=== PATIENT | female | born 1985 | race Caucasian/White ===

== ENCOUNTER 2016-11-16 04:01 | Emergency (ER) | payer MEDICAID ==
[2016-11-16] MEDS ORDERED: AZITHROMYCIN 250 MG TABLET PO STA (04:23)
[2016-11-16] MEDS ORDERED: AZITHROMYCIN 250 MG TABLET PO ONE (04:31)
== END 2016-11-16 04:41 | disposition home or self-care (01) ==
DX: H66.90 Otitis media, unspecified, unspecified ear (principal); Z87.891 Personal history of nicotine dependence
CPT/HCPCS: 99283; A9270

== ENCOUNTER 2017-10-04 15:13 | Emergency (ER) | payer MEDICAID ==
[2017-10-04 16:38] LABS: BASOPHILS # (AUTO) 0.1 10^3/uL (0.0-0.1); BASOPHILS % (AUTO) 0.8 %; EOSINOPHILS # (AUTO) 0.1 10^3/uL (0.0-0.7); HGB - HEMOGLOBIN 14.6 g/dL (12.0-16.0); LYMPHOCYTES # (AUTO) 3.8 10^3/uL (1.5-3.5); LYMPHOCYTES % (AUTO) 43.7 %; MEAN CORPUSCULAR HEMOGLOBIN 29.3 pg (27.0-31.0); MEAN CORPUSCULAR HGB CONC 33.5 g/dL (32.0-36.0); MEAN CORPUSCULAR VOLUME 87.3 fL (81.0-99.0); MEAN PLATELET VOLUME 8.1 fL (7.9-10.8); MONOCYTES # (AUTO) 0.7 10^3/uL (0.0-1.0); MONOCYTES % (AUTO) 7.8 %; NEUTROPHILS # (AUTO) 4.1 10^3/uL (1.5-6.6); NEUTROPHILS % (AUTO) 46.7 %; PLT - PLATELET COUNT 236 10^3/uL (130-450); RED BLOOD COUNT 4.98 10^6/uL (4.20-5.40); RED CELL DISTRIBUTION WIDTH 13.1 % (12.0-15.0); WHITE BLOOD COUNT 8.7 x10^3/uL (4.8-10.8)
[2017-10-04 16:49] LABS: ALBUMIN 4.5 g/dL (3.2-5.5); ALBUMIN/GLOBULIN RATIO 1.3 (1.0-2.2); BILIRUBIN,TOTAL 0.8 mg/dL (0.2-1.0); CALCIUM 9.2 mg/dL (8.5-10.3); CREATININE 0.6 mg/dL (0.4-1.0); TOTAL PROTEIN 7.9 g/dL (6.7-8.2)
[2017-10-04 17:50] LABS: BILIRUBIN,URINE NEGATIVE (NEGATIVE); GLUCOSE, URINE (UA) NEGATIVE (NEGATIVE); KETONES,URINE (UA) NEGATIVE (NEGATIVE); LEUKOCYTE ESTERASE, URINE NEGATIVE (NEGATIVE); NITRITE,URINE NEGATIVE (NEGATIVE); OCCULT BLOOD,URINE LARGE (NEGATIVE); PROTEIN,URINE NEGATIVE (NEGATIVE); UROBILINOGEN,URINE 0.2 (NORMAL) E.U./dL (NORMAL)
[2017-10-04 17:54] LABS: CLARITY,URINE HAZY (CLEAR)
[2017-10-04 18:06] LABS: BACTERIA,URINE Few /HPF (None Seen); SQUAMOUS EPITHELIAL CELL,UR FEW Squamous (<= Few)
[2017-10-04 18:21] VITALS: BP 126/76
== END 2017-10-04 18:18 | disposition left against medical advice (07) ==
LOC: ED 15:13
DX: Z53.21 Procedure and treatment not carried out due to patient leaving prior to being seen by health care provider (principal)
CPT/HCPCS: 36415; 80053; 81001; 81003; 83690; 85025; 87086; 99281

== ENCOUNTER 2017-10-29 09:15 | Emergency (ER) | payer MEDICAID ==
[2017-10-29] MEDS ORDERED: SODIUM CHLORIDE 0.9% 1,000 ML IV ONE (09:44)
[2017-10-29] MEDS ORDERED: ONDANSETRON 4 MG/2 ML VIAL IVP STA (09:44)
--- NOTE | 2017-10-29 09:46 | ED Physician Documentation ---
History of Present Illness - Stated complaint Stated Complaint: N/V/D DIZZY - Chief complaint Chief Complaint: General - Additonal information Additional information: hx from pt 32 f denies preg - has a 3 m old - not breast feeding to ER with NVD and abd cramping started about midnight no bad food no travel no recent ab daughter had vomiting a few days ago so may have caught it from her hx factor V leiden s/p PE X 2 and a DVT but no longer on coumadin Review of Systems Constitutional: denies: Fever Cardiac: denies: Chest pain / pressure Respiratory: denies: Cough GI: reports: Abdominal Pain (crampy), Nausea, Vomiting, Diarrhea : denies: Now EGA Endocrine: denies: Easy bruising / bleeding Immunocompromised: denies: Immunocompromised PD PAST MEDICAL HISTORY - Past Medical History Cardiovascular: None Respiratory: Pneumonia Endocrine/Autoimmune: None GI: Hemorrhoids 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 : Chronic bladder infection HEENT: None Psych: Depression Musculoskeletal: None Derm: None - Past Surgical History Past Surgical History: Yes HEENT: Tonsil/Adenoidectomy - Present Medications Home Medications: Ambulatory Orders Medication Instructions Recorded Confirmed Aspirin Chewable [St Nuno 81 mg PO ONCE 09/14/10/29/17 Aspirin] Dicyclomine [Bentyl] 10 mg PO Q8H PRN #20 capsule 10/29/17 Ondansetron Odt [Zofran] 4 mg TL Q6H PRN #10 tablet 10/29/17 - Allergies Allergies/Adverse Reactions: Allergies Allergy/AdvReac Type Severity Reaction Status Date / Time Penicillins Allergy Hives Verified 10/29/17 09:33 - Social History Does the pt smoke?: No Smoking Status: Former smoker Does the pt drink ETOH?: Yes Does the pt have substance abuse?: No - Immunizations Immunizations are current?: Yes - POLST Patient has POLST: No PD ED PE NORMAL - Vitals Vital signs reviewed: Yes - Cardiac Cardiac: RRR - Respiratory Respiratory: No respiratory distress - Abdomen Abdomen: Other (soft, mild diffuse TTP lower > upper s peritoneal signs) - Derm Derm: Normal color Results - Vitals Vitals: Vital Signs - 24 hr 10/29/17 10/29/17 09:27 11:58 Temperature 36.4 C L Heart Rate 106 H 70 Respiratory 17 18 Rate Blood Pressure 124/85 H 121/72 O2 Saturation 97 97 Oxygen O2 Source Room air - Labs Labs: Laboratory Tests 10/29/17 10/29/17 09:30 09:30 WBC 13.0 H RBC 5.22 Hgb 15.4 Hct 46.7 MCV 89.5 MCH 29.5 MCHC 32.9 RDW 13.2 Plt Count 222 MPV 10.1 Neut # 11.4 H Lymph # 1.1 L [place] # 0.4 Eos # 0.1 Baso # 0.0 Absolute Nucleated RBC 0.01 Nucleated RBC % 0.1 Sodium 139 Potassium 4.0 Chloride 104 Carbon Dioxide 21 Anion Gap 14.0 H BUN 12 Creatinine 0.7 Estimated GFR (MDRD) 96 Glucose 118 H Calcium 9.5 Total Bilirubin 0.7 AST 25 ALT 28 Alkaline Phosphatase 81 Total Protein 8.2 Albumin 4.7 Globulin 3.5 Albumin/Globulin Ratio 1.3 Lipase 33 Departure - Departure Disposition: 01 Home, Self Care Clinical Impression: Gastroenteritis, Dehydration Condition: Good Instructions: ED Dehydration, ED Gastroenteritis Viral Follow-Up: Cici Reynaga PA-C [Primary Care Provider] - Prescriptions: Dicyclomine [Bentyl] 10 mg PO Q8H PRN #20 capsule PRN Reason: stomach cramps Ondansetron Odt [Zofran] 4 mg TL Q6H PRN #10 tablet PRN Reason: Nausea / Vomiting Comments: At this point it looks like you have a stomach virus. Rest and drink plenty of fluids. Take zofran for vomiting and bentyl for cramps. Some serious abdominal infections such as appendicitis, can initially look like a stomach virus - so if you feel like you are getting worse or the symptoms are changing, please come back to ER for us to recheck you Forms: Activity restrictions
[2017-10-29 10:12] LABS: ALBUMIN 4.7 g/dL (3.2-5.5); ALBUMIN/GLOBULIN RATIO 1.3 (1.0-2.2); BILIRUBIN,TOTAL 0.7 mg/dL (0.2-1.0); CALCIUM 9.5 mg/dL (8.5-10.3); CREATININE 0.7 mg/dL (0.4-1.0); TOTAL PROTEIN 8.2 g/dL (6.7-8.2)
[2017-10-29 10:23] LABS: BASOPHILS % (AUTO) 0.3 %; EOSINOPHILS # (AUTO) 0.1 10^3/uL (0.0-0.7); EOSINOPHILS % (AUTO) 0.9 %; HGB - HEMOGLOBIN 15.4 g/dL (12.0-16.0); LYMPHOCYTES # (AUTO) 1.1 10^3/uL (1.5-3.5); LYMPHOCYTES % (AUTO) 8.5 %; MEAN CORPUSCULAR HEMOGLOBIN 29.5 pg (27.0-31.0); MEAN CORPUSCULAR HGB CONC 32.9 g/dL (32.0-36.0); MEAN CORPUSCULAR VOLUME 89.5 fL (81.0-99.0); MEAN PLATELET VOLUME 10.1 fL (7.9-10.8); MONOCYTES # (AUTO) 0.4 10^3/uL (0.0-1.0); MONOCYTES % (AUTO) 2.8 %; NEUTROPHILS # (AUTO) 11.4 10^3/uL (1.5-6.6); NEUTROPHILS % (AUTO) 87.5 %; PLT - PLATELET COUNT 222 10^3/uL (130-450); RED BLOOD COUNT 5.22 10^6/uL (4.20-5.40); RED CELL DISTRIBUTION WIDTH 13.2 % (12.0-15.0)
[2017-10-29] MEDS ORDERED: ACETAMINOPHEN 325 MG TABLET PO STA (10:28)
[2017-10-29] MEDS ORDERED: DICYCLOMINE 10 MG CAPSULE PO STA (11:47)
[2017-10-29 12:00] VITALS: BP 121/72
== END 2017-10-29 12:20 | disposition home or self-care (01) ==
LOC: ED 09:15
DX: K52.9 Noninfective gastroenteritis and colitis, unspecified (principal); E86.0 Dehydration; Z87.891 Personal history of nicotine dependence
CPT/HCPCS: 36415; 80053; 83690; 85025; 96361; 96374; 99283; 99284; A9270

== ENCOUNTER 2018-04-21 23:03 | Emergency (ER) | payer SELFPAY ==
--- NOTE | 2018-04-22 01:36 | ED Physician Documentation ---
PD HPI CHEST PAIN - Stated complaint Stated Complaint: JADA KNEE PAIN,CHEST PAIN - Chief complaint Chief Complaint: General - History obtained from History obtained from: Patient - History of Present Illness Timing - onset: Enter time (10:00), Today Timing - onset during: Rest Timing - duration: Hours Timing - details: Abrupt onset, Constant Quality: Sharp, Pain Location: Left chest Radiation: Other (no radiation) Improved by: Nothing Worsened by: Inspiration Associated symptoms: No: Shortness of air, Diaphoresis, Cough Similar symptoms before: Diagnosis (feels similar to previous PE x2) Recently seen: Not recently seen Review of Systems Constitutional: reports: Reviewed and negative Cardiac: reports: Chest pain / pressure. 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 : Chronic bladder infection HEENT: None Psych: Depression Musculoskeletal: None Derm: None Other Past Medical History: PE - Past Surgical History Past Surgical History: Yes HEENT: Tonsil/Adenoidectomy - Present Medications Home Medications: Ambulatory Orders Medication Instructions Recorded Confirmed Aspirin Chewable [St Nuno 81 mg PO ONCE 09/14/10/29/17 Aspirin] Dicyclomine [Bentyl] 10 mg PO Q8H PRN #20 capsule 10/29/17 Ondansetron Odt [Zofran] 4 mg TL Q6H PRN #10 tablet 10/29/17 - Allergies Allergies/Adverse Reactions: Allergies Allergy/AdvReac Type Severity Reaction Status Date / Time Penicillins Allergy Hives Verified 10/29/17 09:33 - Social History Does the pt smoke?: No Smoking Status: Never smoker Does the pt drink ETOH?: Yes Does the pt have substance abuse?: No - Immunizations Immunizations are current?: Yes - POLST Patient has POLST: No PD ED PE NORMAL - Vitals Vital signs reviewed: Yes - General General: Alert and oriented X 3, No acute distress, Well developed/nourished - Cardiac Cardiac: RRR, No murmur - Respiratory Respiratory: No respiratory distress, Clear bilaterally - Extremities Extremities: No edema Results - Vitals Vitals: Oxygen O2 Source Room air - Labs Labs: Laboratory Tests 04/22/18 04/22/18 02:00 02:00 WBC 12.2 H RBC 4.85 Hgb 14.6 Hct 43.2 MCV 89.0 MCH 30.1 MCHC 33.8 RDW 13.3 Plt Count 230 MPV 8.6 Neut # (Auto) 6.4 Lymph # (Auto) 4.7 H [place] # (Auto) 0.8 Eos # (Auto) 0.2 Baso # (Auto) 0.1 Absolute Nucleated RBC 0.01 Nucleated RBC % 0.1 Sodium 136 Potassium 4.2 Chloride 102 Carbon Dioxide 28 Anion Gap 6.0 BUN 14 Creatinine 0.7 Estimated GFR (MDRD) 96 Glucose 95 Calcium 9.2 - Rads (name of study) CT chest (PE study) Radiology: Prelim report reviewed, See rad report PD MEDICAL DECISION MAKING - ED course Complexity details: reviewed results, re-evaluated patient, considered differential, d/w patient - Sepsis Event Vital Signs: Oxygen O2 Source Room air Departure - Departure Disposition: 01 Home, Self Care Clinical Impression: Chest pain Condition: Good Instructions: ED Chest Pain Atypical Unkn Cause Follow-Up: Cici Reynaga PA-C [Primary Care Provider] - Discharge Date/Time: 04/22/18 04:14
[2018-04-22 02:07] LABS: BASOPHILS # (AUTO) 0.1 10^3/uL (0.0-0.1); BASOPHILS % (AUTO) 0.9 %; EOSINOPHILS # (AUTO) 0.2 10^3/uL (0.0-0.7); EOSINOPHILS % (AUTO) 1.6 %; HGB - HEMOGLOBIN 14.6 g/dL (12.0-16.0); LYMPHOCYTES # (AUTO) 4.7 10^3/uL (1.5-3.5); LYMPHOCYTES % (AUTO) 38.4 %; MEAN CORPUSCULAR HEMOGLOBIN 30.1 pg (27.0-31.0); MEAN CORPUSCULAR HGB CONC 33.8 g/dL (32.0-36.0); MEAN PLATELET VOLUME 8.6 fL (7.9-10.8); MONOCYTES # (AUTO) 0.8 10^3/uL (0.0-1.0); MONOCYTES % (AUTO) 6.5 %; NEUTROPHILS # (AUTO) 6.4 10^3/uL (1.5-6.6); NEUTROPHILS % (AUTO) 52.6 %; PLT - PLATELET COUNT 230 10^3/uL (130-450); RED BLOOD COUNT 4.85 10^6/uL (4.20-5.40); RED CELL DISTRIBUTION WIDTH 13.3 % (12.0-15.0); WHITE BLOOD COUNT 12.2 x10^3/uL (4.8-10.8)
[2018-04-22] MEDS ORDERED: IOPAMIDOL-300 100 ML VIAL ONE (02:18)
[2018-04-22 02:23] LABS: CALCIUM 9.2 mg/dL (8.5-10.3); CREATININE 0.7 mg/dL (0.4-1.0)
[2018-04-22] MEDS: IOPAMIDOL-300 100 ML VIAL IVP ONE (03:04)
--- NOTE | 2018-04-22 03:37 | CT Report ---
Procedure Date: 04/22/2018 Accession Number: [id number] / [id number] Procedure: CT - Chest Angio (PE) CPT Code: FULL RESULT: EXAM: CT ANGIOGRAM CHEST EXAM DATE: 04/22/2018 03:05 AM. CLINICAL HISTORY: Left chest pain, history of pulmonary embolism x2. COMPARISON: None. TECHNIQUE: Routine helical imaging was performed through the chest in the pulmonary arterial phase. IV Contrast: Yes. Reconstructions: Coronal 3-D MIP reconstructions.Sagittal and coronal. In accordance with CT protocol optimization, one or more of the following dose reduction techniques were utilized for this exam: automated exposure control, adjustment of mA and/or KV based on patient size, or use of iterative reconstructive technique. FINDINGS: Pulmonary Arteries: Technically adequate for evaluation through the segmental arteries. No evidence for acute or chronic pulmonary emboli. Lungs/Pleura: No pneumonia, suspicious nodules, or edema. No effusions or pneumothorax. Mediastinum: No acute aortic syndrome. No cardiac enlargement. No adenopathy. Upper Abdomen: Unremarkable. Other: None. IMPRESSION: Normal pulmonary CT angiogram. No pulmonary emboli. RADIA
[2018-04-22 04:14] VITALS: BP 110/70
== END 2018-04-22 04:14 | disposition home or self-care (01) ==
LOC: ED 23:03
DX: R07.9 Chest pain, unspecified (principal); Z86.711 Personal history of pulmonary embolism
CPT/HCPCS: 36415; 71275; 80048; 85025; 99283; Q9967

== ENCOUNTER 2018-06-01 18:28 | Emergency (ER) | payer MEDICAID ==
[2018-06-01 18:36] VITALS: BP 113/78
== END 2018-06-01 19:10 | disposition left against medical advice (07) ==
LOC: ED 18:28
DX: Z53.21 Procedure and treatment not carried out due to patient leaving prior to being seen by health care provider (principal)

== ENCOUNTER 2019-02-13 14:17 | Emergency (ER) | payer MEDICAID ==
[2019-02-13] MEDS ORDERED: NAPROXEN 250 MG TABLET PO STA (14:38)
--- NOTE | 2019-02-13 14:41 | ED Physician Documentation ---
PD HPI LOWER EXT INJURY - Stated complaint Stated Complaint: SWELLING IN RIGHT LEG - Chief complaint Chief Complaint: General - History obtained from History obtained from: Patient - History of Present Illness PD HPI LOW EXT INJURY LOCATION: Right, Knee, Thigh, Calf Type of injury: Other (She is not aware of any abrupt injury. She did ride in a car up to [facility] so was a few hours. She had her leg tucked up underneath her during the ride. She did not notice any pain at that time. This was a week ago and is now having a couple of days of right calf and thigh area pain and a feeling of swelling in her lower leg. She does have history of DVT a few years ago when she was and is concerned about that. She states she does have a factor V Leiden deficiency as well.). No: Fall, Twist Where injury occurred: Other (riding in car a week ago) Timing - onset: How many weeks ago (1) Timing - details: Gradual onset (having pain in the calf and thigh for the past couple of days.), Still present Associated symptoms: Tingling (in right foot today). No: Weakness, Numbness Contributing factors: No: Anticoagulated Similar symptoms before: Diagnosis (she says symptoms are similar to when she started having DVT in the past.) Recently seen: Not recently seen Review of Systems Constitutional: denies: Fever, Chills, Myalgias Skin: denies: Rash, Lesions Musculoskeletal: reports: Extremity swelling (feeling of right lower leg swelling). 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 : Chronic bladder infection HEENT: None Psych: Depression Musculoskeletal: None Derm: None - Past Surgical History Past Surgical History: Yes HEENT: Tonsil/Adenoidectomy - Present Medications Home Medications: Ambulatory Orders Medication Instructions Recorded Confirmed No Known Home Medications 02/13/19 02/13/19 - Allergies Allergies/Adverse Reactions: Allergies Allergy/AdvReac Type Severity Reaction Status Date / Time Penicillins Allergy Hives Verified 02/13/19 14:24 - Social History Does the pt smoke?: No Smoking Status: Never smoker Does the pt drink ETOH?: Yes Does the pt have substance abuse?: No - Immunizations Immunizations are current?: Yes - POLST Patient has POLST: No PD ED PE NORMAL - Vitals Vital signs reviewed: Yes - General General: Alert and oriented X 3, No acute distress, Well developed/nourished - Cardiac Cardiac: RRR, No murmur - Respiratory Respiratory: Clear bilaterally - Abdomen Abdomen: Soft, Non tender - Derm Derm: Normal color, Warm and dry, No rash - Extremities Extremities: No edema, Other (some tenderness in upper calf and behind knee, lower thigh to palpation. No notable edema. Good color and cap refill in foot and toes. ) - Neuro Neuro: No motor deficit, No sensory deficit Results - Vitals Vitals: Oxygen O2 Source Room air - Rads (name of study) duplex right leg Radiology: Prelim report reviewed (no DVT), See rad report PD MEDICAL DECISION MAKING - ED course Complexity details: reviewed results, re-evaluated patient, considered differential, d/w patient Departure - Departure Disposition: 01 Home, Self Care Clinical Impression: Right leg pain Clinical Impression: (Ruled Out): DVT (deep venous thrombosis) Condition: Stable Record reviewed to determine appropriate education?: Yes Instructions: ED Strain Muscle Ext Comments: No DVT seen on ultrasound. Naproxen or ibuprofen twice daily. Elevate and rest of the leg presuming little bit of swelling from gravity. There may be some muscle strain component. Her to seem nasal improve over the next few days. Recheck if worsening pain or swelling over the next several days to week. If y ou are having worsening symptoms, the ultrasound can get repeated in a week. Discharge Date/Time: 02/13/19 16:36
--- NOTE | 2019-02-13 16:17 | Ultrasound Report ---
Reason: right calf/knee pain, h/o DVT few years ago Procedure Date: 02/13/2019 Accession Number: [id number] / [id number] Procedure: US - Duplex Ext Veins Right CPT Code: FULL RESULT: EXAM: RIGHT LOWER EXTREMITY VENOUS ULTRASOUND EXAM DATE: 02/13/2019 03:54 PM. CLINICAL HISTORY: Right calf/knee pain, h/o DVT few years ago. COMPARISON: None. TECHNIQUE: Real-time sonographic vascular imaging was performed by the hyperbaric technician through the lower extremity utilizing both color-flow and Doppler spectral analysis. Multiple manufacturer representative static images were saved for review. FINDINGS: Common Femoral Vein (CFV): Normal. CFV-GSV Junction: Normal. Profunda Femoral Vein (PFV): Normal. Femoral Vein (FV) Prox: Normal. Femoral Vein (FV) Mid: Normal. Femoral Vein (FV) Dist: Normal. Popliteal Vein: Normal. Posterior Tibial Veins: Normal. Peroneal Veins: Normal. Other: None. IMPRESSION: No evidence for deep venous thrombosis. RADIA
[2019-02-13 16:35] VITALS: BP 117/83
== END 2019-02-13 16:36 | disposition home or self-care (01) ==
LOC: ED 14:17
DX: M25.561 Pain in right knee (principal); M79.661 Pain in right lower leg; M79.651 Pain in right thigh; Z86.718 Personal history of other venous thrombosis and embolism; D68.51 Activated protein C resistance
CPT/HCPCS: 93971; 99282; 99283; A9270

== ENCOUNTER 2019-05-08 18:35 | Emergency (ER) | payer MEDICAID ==
--- NOTE | 2019-05-08 21:06 | ED Physician Documentation ---
PD HPI SKIN - Stated complaint Stated Complaint: SPOT ON FACE - Chief complaint Chief Complaint: Wound - History obtained from History obtained from: Patient - History of Present Illness Timing - onset: How many days ago (The patient states she had a small mole on the right side of her mandible for a long time but over the last several days to week it is been irritated and draining some fluid and some purulence. It is locally tender. She is not aware of an injury to it.) Timing - details: Gradual onset, Still present Location: Face (right mandible area) Quality / character: Painful, Swelling, Draining. 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 : Chronic bladder infection HEENT: None Psych: Depression Musculoskeletal: None Derm: None - Past Surgical History Past Surgical History: Yes HEENT: Tonsil/Adenoidectomy - Present Medications Home Medications: Ambulatory Orders Medication Instructions Recorded Confirmed RX: Doxycycline Hyclate 100 mg PO BID #14 capsule 05/08/19 RX: Mupirocin 1 applic TP TID #15 g 05/08/19 - Allergies Allergies/Adverse Reactions: Allergies Allergy/AdvReac Type Severity Reaction Status Date / Time Penicillins Allergy Hives Verified 05/08/19 18:58 - Social History Does the pt smoke?: No Smoking Status: Never smoker Does the pt drink ETOH?: Yes Does the pt have substance abuse?: No - Immunizations Immunizations are current?: Yes - POLST Patient has POLST: No PD ED PE NORMAL - Vitals Vital signs reviewed: Yes - General General: Alert and oriented X 3, No acute distress, Well developed/nourished - HEENT HEENT: Ears normal, Pharynx benign - Neck Neck: Supple, no meningeal sign, No adenopathy - Derm Derm: Normal color, Warm and dry, Other (The right lateral aspect of the mandible shows a localized area of mild redness and inflammation without any fluctuance or abscess subdermal induration. The skin itself shows mild ulcerative changes without any pigmentation. There is no adenopathy.) Results - Vitals Vitals: Vital Signs - 24 hr 05/08/19 05/08/19 18:56 21:37 Temperature 37 C 36.5 C Heart Rate 94 76 Respiratory 16 17 Rate Blood Pressure 125/81 H 140/98 H O2 Saturation 97 99 Oxygen O2 Source Room air PD MEDICAL DECISION MAKING - ED course Complexity details: considered differential (I think the area of her mole got infected and now has some local skin erosion and we will treated with topical and oral antibiotics. However I did discuss with her the concern for 6 again cancers related to the prior mole. I referred her to [facility] for reevaluation after the antibiotics and in their judgment if they think a skin biopsy or excisional biopsy is warranted.), d/w patient Departure - Departure Disposition: 01 Home, Self Care Clinical Impression: Infected skin lesion Condition: Stable Record reviewed to determine appropriate education?: Yes Instructions: ED Staph Infec Abx Tx Only Follow-Up: NISH CHENEY ARNP [Primary Care Provider] - [facility] [Provider Group] Prescriptions: RX: Doxycycline Hyclate 100 mg PO BID #14 capsule RX: Mupirocin 1 applic TP TID #15 g Comments: The small may have just developed a simple infection. Use mupirocin topical antibiotic 2-3 times a day and doxycycline oral antibiotic twice daily for a week. However I would suggest following up with dermatology for reevaluation after that timeframe to see how well it is healed and if there is concern for needing a biopsy. Discharge Date/Time: 05/08/19 21:39
[2019-05-08] MEDS ORDERED: DOXYCYCLINE 100 MG TABLET PO STA (21:24)
[2019-05-08] MEDS ORDERED: MUPIROCIN 2% OINT 1 GM TOP STA (21:24)
[2019-05-08 21:37] VITALS: BP 140/98
== END 2019-05-08 21:39 | disposition home or self-care (01) ==
LOC: ED 18:35
DX: L08.9 Local infection of the skin and subcutaneous tissue, unspecified (principal); D22.39 Melanocytic nevi of other parts of face; Z88.0 Allergy status to penicillin
CPT/HCPCS: 99283; A9270; 81025

== ENCOUNTER 2019-09-05 12:47 | Emergency (ER) | payer MEDICAID ==
[2019-09-05 12:55] VITALS: BP 148/93
--- NOTE | 2019-09-05 13:16 | ED Physician Documentation ---
PD HPI UPPER EXT INJURY - Stated complaint Stated Complaint: WRIST PX - Chief complaint Chief Complaint: Ext Problem - History obtained from History obtained from: Patient - History of Present Illness Location: Right, Wrist Type of injury: Fall, Twist Timing - onset: How many weeks ago (1-2) Timing - details: Still present Improved by: Nothing Worsened by: Moving Associated symptoms: Tingling. No: Swelling, Discolored Similar symptoms before: Has not had sx before Recently seen: Not recently seen - Additonal information Additional information: There is a 34-year-old presents with another adult and 2 children with complaints that somehow she injured her wrist she does not remember exactly but she thinks she was "playing around" with someone a week and to 2 weeks ago when she fell landing on her right wrist and it kind of twisted as she landed on it. 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 She is right-handed. She is felt like her hand is been tingly for about a week now. She tried taking Tylenol and ibuprofen but it did not do anything for the pain so she quit taking it. She did wear her bowling brace but it seemed to put pressure in the wrong place and it did not help at all. She does not currently employed. Review of Systems Skin: denies: Abrasion (s) Musculoskeletal: reports: Extremity pain, Joint pain. denies: Extremity swelling Neurologic: reports: Focal weakness (Cannot brush polisher because of pain). 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 : Chronic bladder infection HEENT: None Psych: Depression Musculoskeletal: None Derm: None - Past Surgical History Past Surgical History: Yes HEENT: Tonsil/Adenoidectomy - Present Medications Home Medications: Ambulatory Orders Medication Instructions Recorded Confirmed Doxycycline Hyclate 100 mg PO BID #14 capsule 05/08/19 Mupirocin 1 applic TP TID #15 g 05/08/19 - Allergies Allergies/Adverse Reactions: Allergies Allergy/AdvReac Type Severity Reaction Status Date / Time Penicillins Allergy Hives Verified 09/05/19 12:51 - Social History Does the pt smoke?: No Smoking Status: Never smoker Does the pt drink ETOH?: Yes Does the pt have substance abuse?: No - Immunizations Immunizations are current?: Yes - POLST Patient has POLST: No PD ED PE NORMAL - Vitals Vital signs reviewed: Yes - General General: Alert and oriented X 3, No acute distress, Well developed/nourished - HEENT HEENT: Atraumatic - Respiratory Respiratory: No respiratory distress - Derm Derm: Normal color, Warm and dry, Other (There are couple scattered abrasions on the dorsal aspect of the right hand and forearm.) - Extremities Extremities: Normal ROM s pain, No edema. No: No tenderness to palpate (Tender to palpate at the ulnar styloid of the right wrist. No snuffbox tenderness.) - Neuro Neuro: No motor deficit (5 out of 5 brush polisher strength and she is able to abduct the pinky and thumb.), No sensory deficit (Sensation is intact to light touch in all 5 digits.) - Psych Psych: Normal mood, Normal affect Results - Vitals Vitals: Vital Signs - 24 hr 09/05/19 12:51 Temperature 36.8 C Heart Rate 88 Respiratory 16 Rate Blood Pressure 148/93 H O2 Saturation 98 Oxygen O2 Source Room air - Rads (name of study) R wrist Radiology: EMP read contemporaneously (Negative fracture.) PD MEDICAL DECISION MAKING - ED course Complexity details: reviewed results, d/w patient ED course: Results the x-ray were discussed with the patient. She is placed in a cock-up Velcro splint. Ice for pain and follow-up with her primary care provider if the symptoms persist for another 4-6 weeks.
--- NOTE | 2019-09-05 13:32 | XRAY Report ---
Reason: pain Procedure Date: 09/05/2019 Accession Number: [id number] / [id number] Procedure: XR - Wrist 4 View RT CPT Code: Final Report FULL RESULT: EXAM: RIGHT WRIST RADIOGRAPHY EXAM DATE: 09/05/2019 01:05 PM. CLINICAL HISTORY: Worsening wrist pain. No known injury. COMPARISON: None. TECHNIQUE: 4 views. FINDINGS: Bones: No fracture or bone destructive process. Joints: No subluxation. Joint spaces are preserved. Soft Tissues: No periarticular calcification or significant findings identified. IMPRESSION: 1. Negative exam. No significant findings identified. RADIA
== END 2019-09-05 14:23 | disposition home or self-care (01) ==
LOC: ED 12:47
DX: S63.501A Unspecified sprain of right wrist, initial encounter (principal); S60.511A Abrasion of right hand, initial encounter; S50.811A Abrasion of right forearm, initial encounter; W19.XXXA Unspecified fall, initial encounter
CPT/HCPCS: 99283

== ENCOUNTER 2019-10-03 16:45 | Emergency (ER) | payer MEDICAID ==
--- NOTE | 2019-10-03 18:15 | ED Physician Documentation ---
PD HPI HEENT - Stated complaint Stated Complaint: TOOTH PX - Chief complaint Chief Complaint: Heent - History obtained from History obtained from: Patient - History of Present Illness Timing - onset: How many weeks ago (She has been having some pain in the right upper and lower teeth for several weeks it has increased considerably over the last several days. She noticed a little bad odor and taste from upper tooth suggesting some drainage. There is some mild swelling of the gum.) Timing - duration: Weeks Timing - details: Abrupt onset, Still present Location: Tooth (right upper) Associated symptoms: No: Fever, Congestion, Unable to swallow, Swollen nodes, Facial swelling Recently seen: Not recently seen Review of Systems Constitutional: denies: Fever, Chills, Myalgias Nose: denies: Rhinorrhea / runny nose, Congestion Throat: reports: Dental pain / toothache. 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 : Chronic bladder infection HEENT: None Psych: Depression Musculoskeletal: None Derm: None - Past Surgical History Past Surgical History: Yes HEENT: Tonsil/Adenoidectomy - Present Medications Home Medications: Ambulatory Orders Medication Instructions Recorded Confirmed Doxycycline Hyclate 100 mg PO BID #14 capsule 05/08/19 Mupirocin 1 applic TP TID #15 g 05/08/19 Chlorhexidine Gluconate [Peridex] 15 ml PO BID #118 ml 10/03/19 Clindamycin HCl [Clindamycin 300MG 300 mg PO TID #21 capsule 10/03/19 CAP] Naproxen 375 mg PO BID #20 tablet 10/03/19 Oxycodone HCl/Acetaminophen 1 each PO Q6H PRN #20 tablet 10/03/19 [Percocet 5-325 mg Tablet] - Allergies Allergies/Adverse Reactions: Allergies Allergy/AdvReac Type Severity Reaction Status Date / Time Penicillins Allergy Hives Verified 10/03/19 16:53 - Social History Does the pt smoke?: No Smoking Status: Never smoker Does the pt drink ETOH?: Yes Does the pt have substance abuse?: No - Immunizations Immunizations are current?: Yes - POLST Patient has POLST: No PD ED PE NORMAL - Vitals Vital signs reviewed: Yes - General General: Alert and oriented X 3, No acute distress, Well developed/nourished - HEENT HEENT: Ears normal, Pharynx benign, Other (There is gum redness on the upper and lower. There is tenderness to palpation and percussion of the upper premolar couple of teeth. There is no obvious fluctuance or abscess.). 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 No recent substance abuse.) - Neck Neck: Supple, no meningeal sign, Other (right anterior adenopathy) - Cardiac Cardiac: RRR, No murmur - Respiratory Respiratory: Clear bilaterally - Abdomen Abdomen: Soft, Non tender - Derm Derm: Normal color, No rash Results - Vitals Vitals: Vital Signs - 24 hr 10/03/19 18:59 Heart Rate 90 Respiratory 16 Rate Blood Pressure 140/90 H O2 Saturation 98 Oxygen O2 Source Room air PD MEDICAL DECISION MAKING - ED course Complexity details: considered differential, d/w patient Departure - Departure Disposition: Home, Self Care Clinical Impression: Pain, dental, Dental abscess Condition: Stable Record reviewed to determine appropriate education?: Yes Instructions: ED Abscess Dental Follow-Up: NISH CHENEY ARNP [Primary Care Provider] - Prescriptions: Chlorhexidine Gluconate [Peridex] 15 ml PO BID #118 ml Clindamycin HCl [Clindamycin 300MG CAP] 300 mg PO TID #21 capsule Naproxen 375 mg PO BID #20 tablet Oxycodone HCl/Acetaminophen [Percocet 5-325 mg Tablet] 1 each PO Q6H PRN #20 tablet PRN Reason: pain Comments: Rinse with the chlorhexidine oral antiseptic twice daily swish and spit. Use anti-inflammatories such as naproxen twice daily with food for the next 7 to 10 days. Add Tylenol or Percocet if needed for pain. Presume there is some infection exacerbating the pain at this point and take clindamycin as directed for a week. Follow-up with dental clinic at their earliest available appointment for more definitive care of the teeth that are bothering you. Recheck if not improving well over the next few days and return sooner if worsening. Discharge Date/Time: 10/03/19 18:59
[2019-10-03] MEDS ORDERED: CLINDAMYCIN 150 MG CAPSULE PO STA (18:37)
[2019-10-03] MEDS ORDERED: oxyCODONE 5 MG TABLET PO STA (18:37)
[2019-10-03] MEDS ORDERED: oxyCODONE/ACET 5/325 Prepack 4 PO STA (18:37)
[2019-10-03] MEDS ORDERED: NAPROXEN 250 MG TABLET PO STA (18:37)
[2019-10-03 19:00] VITALS: BP 140/90
== END 2019-10-03 18:59 | disposition home or self-care (01) ==
LOC: ED 16:45
DX: K04.7 Periapical abscess without sinus (principal); K02.9 Dental caries, unspecified
CPT/HCPCS: 99282; 99284; A9270

== ENCOUNTER 2020-01-25 22:15 | Emergency (ER) | payer MEDICAID ==
--- NOTE | 2020-01-25 22:21 | ED Physician Documentation ---
PD HPI ABD PAIN - Stated complaint Stated Complaint: ABD PX - Chief complaint Chief Complaint: Abd Pain - History obtained from History obtained from: Patient - History of Present Illness Timing - onset: Enter time (19:00), Today Timing - details: Abrupt onset Pain level now: 6 Quality: Pain Location: All over / everywhere (predominantly right-sided) Improved by: Other (nothing) Worsened by: Palpation Associated symptoms: Nausea. 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 : Chronic bladder infection HEENT: None Psych: Depression Musculoskeletal: None Derm: None - Past Surgical History Past Surgical History: Yes HEENT: Tonsil/Adenoidectomy - Present Medications Home Medications: Ambulatory Orders Medication Instructions Recorded Confirmed Ciprofloxacin HCl [Cipro] 500 mg PO BID #10 tablet 01/26/20 Ondansetron Odt [Zofran] 4 mg TL Q6H PRN #10 tablet 01/26/20 Oxycodone HCl/Acetaminophen 1 - 2 each PO Q6H PRN #14 tablet 01/26/20 [Percocet 5-325 mg Tablet] metroNIDAZOLE [Flagyl] 500 mg PO BID #10 tablet 01/26/20 - Allergies Allergies/Adverse Reactions: Allergies Allergy/AdvReac Type Severity Reaction Status Date / Time Penicillins Allergy Hives Verified 01/25/20 22:22 - Social History Does the pt smoke?: No Smoking Status: Never smoker Does the pt drink ETOH?: Yes Does the pt have substance abuse?: No - Immunizations Immunizations are current?: Yes - POLST Patient has POLST: No PD ED PE NORMAL - Vitals Vital signs reviewed: Yes - General General: Alert and oriented X 3, No acute distress, Well developed/nourished - HEENT HEENT: Moist mucous membranes - Neck Neck: Supple, no meningeal sign - Cardiac Cardiac: RRR, No murmur, No rub - Respiratory Respiratory: No respiratory distress, Clear bilaterally - Abdomen Abdomen: Normal bowel sounds, Soft, Non distended PD ED PE EXPANDED - Abdomen Abdomen: Tender to palpation (diffuse but predominantly across upper abdomen, right-sided). No: Rebound, Guarding Results - Vitals Vitals: Oxygen O2 Source Room air - Labs Labs: Laboratory Tests 01/25/20 01/25/20 01/26/20 22:35 23:08 00:07 WBC 15.3 H RBC 4.76 Hgb 14.5 Hct 43.1 MCV 90.5 MCH 30.5 MCHC 33.6 RDW 12.3 Plt Count 222 MPV 10.9 H Neut # (Auto) 10.7 H Lymph # (Auto) 3.4 [place] # (Auto) 0.9 Eos # (Auto) 0.1 Baso # (Auto) 0.1 Absolute Nucleated RBC 0.00 Nucleated RBC % 0.0 Sodium 140 Potassium 3.6 Chloride 106 Carbon Dioxide 24 Anion Gap 10.0 BUN 24 H Creatinine 0.6 Estimated GFR (MDRD) 114 Glucose 116 H Calcium 8.3 L Total Bilirubin 0.6 AST 20 ALT 18 Alkaline Phosphatase 55 Total Protein 6.5 L Albumin 3.7 Globulin 2.8 Albumin/Globulin Ratio 1.3 Lipase 65 H Urine Color YELLOW Urine Clarity CLEAR Urine pH 6.5 Ur Specific [place] 1.010 Urine Protein NEGATIVE Urine Glucose (UA) NEGATIVE Urine Ketones 15 H Urine Occult Blood SMALL H Urine Nitrite NEGATIVE Urine Bilirubin NEGATIVE Urine Urobilinogen 0.2 (NORMAL) Ur Leukocyte Esterase NEGATIVE Urine RBC 0-5 Urine WBC 0-3 Ur Squamous Epith Cells MOD Squamous H Urine Bacteria None Seen Ur Microscopic Review INDICATED Urine Culture Comments NOT INDICATED Urine HCG, Qual NEGATIVE - Rads (name of study) CT A/P Radiology: Prelim report reviewed, See rad report PD MEDICAL DECISION MAKING - ED course Complexity details: reviewed results, re-evaluated patient, considered differential, d/w patient Departure - Departure Disposition: 01 Home, Self Care Clinical Impression: Infectious colitis Condition: Good Instructions: ED Abdominal Pain Unkn Cause Prescriptions: Ciprofloxacin HCl [Cipro] 500 mg PO BID #10 tablet metroNIDAZOLE [Flagyl] 500 mg PO BID #10 tablet Ondansetron Odt [Zofran] 4 mg TL Q6H PRN #10 tablet PRN Reason: Nausea / Vomiting Oxycodone HCl/Acetaminophen [Percocet 5-325 mg Tablet] 1 - 2 each PO Q6H PRN #14 tablet PRN Reason: pain Comments: As we discussed, your CT scan appears to show inflammatory changes of parts of your colon (the right, or ascending, colon and the upper, or transverse, colon). This is possibly due to an infectious cause, such as a virus or bacteria. The antibiotics prescribed might help if this is a bacterial infection. You should follow up with your doctor within the next 2-3 days for reevaluation, but return to the emergency department if worsening (including worsening symptoms and/or development of new signs/symptoms, such as fever or blood in the stool). Forms: Activity restrictions Discharge Date/Time: 01/26/20 02:20
[2020-01-25] MEDS ORDERED: MORPHINE 2 MG/ML CARPUJECT IVP STA (22:41)
[2020-01-25] MEDS ORDERED: SODIUM CHLORIDE 0.9% 1,000 ML IV STA (22:41)
[2020-01-25] MEDS ORDERED: ONDANSETRON 4 MG/2 ML VIAL IVP STA (22:41)
[2020-01-25 22:46] LABS: BASOPHILS # (AUTO) 0.1 10^3/uL (0.0-0.1); BASOPHILS % (AUTO) 0.5 %; EOSINOPHILS # (AUTO) 0.1 10^3/uL (0.0-0.7); EOSINOPHILS % (AUTO) 0.7 %; HGB - HEMOGLOBIN 14.5 g/dL (12.0-16.0); LYMPHOCYTES # (AUTO) 3.4 10^3/uL (1.5-3.5); MEAN CORPUSCULAR HEMOGLOBIN 30.5 pg (27.0-31.0); MEAN CORPUSCULAR HGB CONC 33.6 g/dL (32.0-36.0); MEAN CORPUSCULAR VOLUME 90.5 fL (81.0-99.0); MEAN PLATELET VOLUME 10.9 fL (7.9-10.8); MONOCYTES # (AUTO) 0.9 10^3/uL (0.0-1.0); MONOCYTES % (AUTO) 5.9 %; NEUTROPHILS # (AUTO) 10.7 10^3/uL (1.5-6.6); NEUTROPHILS % (AUTO) 70.2 %; PLT - PLATELET COUNT 222 10^3/uL (130-450); RED BLOOD COUNT 4.76 10^6/uL (4.20-5.40); RED CELL DISTRIBUTION WIDTH 12.3 % (12.0-15.0); WHITE BLOOD COUNT 15.3 x10^3/uL (4.8-10.8)
[2020-01-25] MEDS ORDERED: IOVERSOL 320 100 ML VIAL IVP ONE ×2 (22:57→23:56)
[2020-01-25 23:26] LABS: ALBUMIN 3.7 g/dL (3.2-5.5); ALBUMIN/GLOBULIN RATIO 1.3 (1.0-2.2); BILIRUBIN,TOTAL 0.6 mg/dL (0.2-1.0); CALCIUM 8.3 mg/dL (8.5-10.3); CREATININE 0.6 mg/dL (0.4-1.0); TOTAL PROTEIN 6.5 g/dL (6.7-8.2)
--- NOTE | 2020-01-26 00:17 | CT Report ---
Reason: abd. pain, tenderness Procedure Date: 01/25/2020 Accession Number: [id number] / [id number] Procedure: CT - Abdomen/Pelvis W CPT Code: Final Report FULL RESULT: EXAM: CT ABDOMEN AND PELVIS EXAM DATE: 01/25/2020 11:53 PM. CLINICAL HISTORY: Abdominal pain, tenderness, diarrhea. Nausea. Pain since 7:00 p.m. COMPARISONS: None. TECHNIQUE: Routine helical CT imaging was performed through the abdomen and pelvis. IV contrast: 100 mL Optiray 320. Enteric contrast: No. Reconstructions: Coronal and sagittal. In accordance with CT protocol optimization, one or more of the following dose reduction techniques were utilized for this exam: automated exposure control, adjustment of mA and/or KV based on patient size, or use of iterative reconstructive technique. FINDINGS: ABDOMEN: Liver: Small low density within the superior portion of the right hepatic lobe, segment 8, probably a small hepatic cyst. Stomach/Distal Esophagus: No significant abnormality. Gallbladder: No significant abnormality. Bile Ducts: No significant abnormality. Pancreas: No significant abnormality. Spleen: No significant abnormality. Kidneys: No suspicious solid appearing lesion. No hydronephrosis. Adrenals: No significant abnormality. Bowel: Haustral fold thickening as well as mild wall thickening of the ascending colon is noted. Equivocal wall thickening of the transverse colon, difficult to be certain due to luminal collapse. Descending colon and sigmoid are without significant abnormality. No evidence of bowel obstruction. Average retained colon fecal material. Appendix: Not visualized. Lymph Nodes: No pathologically enlarged nodes. Vasculature: Normal caliber aorta. Fluid: No significant free fluid. Abdominal Wall: No significant abnormality. Other: No significant abnormality. PELVIS: Uterus and Ovaries: No significant abnormality. Bladder: No significant abnormality. Lymph Nodes: No pathologically enlarged nodes. Fluid: No significant free fluid. Other: None. BONES: No suspicious bony lesions. LOWER CHEST: No significant consolidation or effusion. IMPRESSION: 1. Wall thickening of the ascending colon and possible wall thickening of the transverse colon. These findings are worrisome for infectious colitis. 2. No evidence of bowel obstruction. RADIA
[2020-01-26 00:22] LABS: BILIRUBIN,URINE NEGATIVE (NEGATIVE); CLARITY,URINE CLEAR (CLEAR); GLUCOSE, URINE (UA) NEGATIVE (NEGATIVE); KETONES,URINE (UA) 15 mg/dL (NEGATIVE); LEUKOCYTE ESTERASE, URINE NEGATIVE (NEGATIVE); NITRITE,URINE NEGATIVE (NEGATIVE); OCCULT BLOOD,URINE SMALL (NEGATIVE); PH,URINE 6.5 PH (5.0-7.5); PROTEIN,URINE NEGATIVE (NEGATIVE); UROBILINOGEN,URINE 0.2 (NORMAL) E.U./dL (NORMAL)
[2020-01-26 00:24] LABS: HCG UR QUAL NEGATIVE
[2020-01-26 00:32] LABS: BACTERIA,URINE None Seen /HPF (None Seen); RBC,URINE 0-5 /HPF (0-5); SQUAMOUS EPITHELIAL CELL,UR MOD Squamous (<= Few)
[2020-01-26] MEDS ORDERED: ONDANSETRON 4 MG/2 ML VIAL IVP STA (00:39)
[2020-01-26] MEDS ORDERED: MORPHINE 2 MG/ML CARPUJECT IVP STA (00:39)
[2020-01-26] MEDS ORDERED: CIPROFLOXACIN 250 MG TABLET PO STA (01:03)
[2020-01-26] MEDS ORDERED: metroNIDAZOLE 250 MG TABLET PO STA (01:03)
[2020-01-26] MEDS ORDERED: oxyCODONE 5 MG TABLET PO STA (01:08)
[2020-01-26] MEDS ORDERED: SODIUM CHLORIDE 0.9% 500 ML IV STA (01:09)
[2020-01-26] MEDS ORDERED: METOCLOPRAMIDE 10 MG/2 ML VIAL IVP STA (01:42)
[2020-01-26 02:06] VITALS: BP 136/83
== END 2020-01-26 02:20 | disposition home or self-care (01) ==
LOC: ED 22:15
DX: A09 Infectious gastroenteritis and colitis, unspecified (principal)
CPT/HCPCS: 36415; 74177; 80053; 81001; 81025; 83690; 85025; 96361; 96374; 96375; 96376; 99284; A9270; J2765; Q9967; 81003; 87086

== ENCOUNTER 2020-04-03 20:48 | Emergency (ER) | payer MEDICAID ==
[2020-04-03 21:12] LABS: BILIRUBIN,URINE NEGATIVE (NEGATIVE); GLUCOSE, URINE (UA) NEGATIVE (NEGATIVE); KETONES,URINE (UA) NEGATIVE (NEGATIVE); LEUKOCYTE ESTERASE, URINE SMALL (NEGATIVE); NITRITE,URINE POSITIVE (NEGATIVE); OCCULT BLOOD,URINE MODERATE (NEGATIVE); PH,URINE 5.5 PH (5.0-7.5); PROTEIN,URINE 100 mg/dL (NEGATIVE); UROBILINOGEN,URINE 0.2 (NORMAL) E.U./dL (NORMAL)
[2020-04-03 21:15] LABS: CLARITY,URINE HAZY (CLEAR)
[2020-04-03 21:16] LABS: BACTERIA,URINE Few /HPF (None Seen); HCG UR QUAL NEGATIVE; SQUAMOUS EPITHELIAL CELL,UR FEW Squamous (<= Few); WBC CLUMPS,URINE PRESENT
[2020-04-03] MEDS ORDERED: SULFAMETH/TRIMETH DS 800/160 MG TABLET PO STA (22:37)
--- NOTE | 2020-04-03 22:40 | ED Physician Documentation ---
PD HPI FEMALE - Stated complaint Stated Complaint: FEMALE - Chief complaint Chief Complaint: UTI - History obtained from History obtained from: Patient - Additional information Additional information: Patient comes emergency department complaining of dysuria and frequency for the last approximately 3 days. Patient states she has a history of UTIs frequently and this feels the same. She states that she has not had any fevers or chills. No nausea or vomiting. No other complaints at this time. Review of Systems Ten Systems: 10 systems reviewed and negative Constitutional: reports: Reviewed and negative Eyes: reports: Reviewed and negative Ears: reports: Reviewed and negative Nose: reports: Reviewed and negative Throat: reports: Reviewed and negative Cardiac: reports: Reviewed and negative Respiratory: reports: Reviewed and negative GI: reports: Reviewed and negative : reports: Dysuria, Frequency Skin: reports: Reviewed and negative Musculoskeletal: reports: Reviewed and negative Neurologic: reports: Reviewed and negative Psychiatric: reports: Reviewed and negative Endocrine: reports: Reviewed and negative Immunocompromised: reports: Reviewed and negative PD PAST MEDICAL HISTORY - Past Medical History Past Medical History: Yes Cardiovascular: Deep vein thrombosis, Pulmonary embolism Respiratory: Pneumonia, Other Neuro: None Endocrine/Autoimmune: None GI: Hemorrhoids 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 : Chronic bladder infection HEENT: None Psych: Depression Musculoskeletal: None Derm: None - Past Surgical History Past Surgical History: Yes /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 HEENT: Tonsil/Adenoidectomy - Present Medications Home Medications: Ambulatory Orders Medication Instructions Recorded Confirmed Ciprofloxacin HCl [Cipro] 500 mg PO BID #10 tablet 01/26/20 Ondansetron Odt [Zofran] 4 mg TL Q6H PRN #10 tablet 01/26/20 Oxycodone HCl/Acetaminophen 1 - 2 each PO Q6H PRN #14 tablet 01/26/20 [Percocet 5-325 mg Tablet] metroNIDAZOLE [Flagyl] 500 mg PO BID #10 tablet 01/26/20 Sulfamethox/Trimeth 800/160 1 each PO BID #14 tablet 04/03/20 [Bactrim Ds 800/160] - Allergies Allergies/Adverse Reactions: Allergies Allergy/AdvReac Type Severity Reaction Status Date / Time Penicillins Allergy Hives Verified 04/03/20 20:57 - Social History Does the pt smoke?: No Smoking Status: Never smoker Does the pt drink ETOH?: Yes Does the pt have substance abuse?: No - Immunizations Immunizations are current?: Yes - POLST Patient has POLST: No PD ED PE NORMAL - Vitals Vital signs reviewed: Yes - General General: Alert and oriented X 3, No acute distress, Well developed/nourished - HEENT HEENT: PERRL - Neck Neck: Supple, no meningeal sign - Cardiac Cardiac: RRR, No murmur, Strong equal pulses - Respiratory Respiratory: No respiratory distress, Clear bilaterally - Abdomen Abdomen: Soft, Non tender, Non distended - Derm Derm: Normal color, Warm and dry, No rash - Extremities Extremities: No deformity - Neuro Neuro: Alert and oriented X 3 - Psych Psych: Normal mood, Normal affect Results - Vitals Vitals: Oxygen O2 Source Room air - Labs Labs: Microbiology 04/03/20 21:08 Urine Culture - Final Urine,Clean Catch 10-50,000 COLONIES/ML Polymicrobial growth including potential pathogens. This is suggestive of skin or other contamination. Group B Beta-Hemolytic Streptococcus also present in culture. Laboratory Tests 04/03/20 04/03/20 21:08 21:08 Urine Color ORANGE Urine Clarity HAZY Urine pH 5.5 Ur Specific [place] 1.025 1.025 Urine Protein 100 H Urine Glucose (UA) NEGATIVE Urine Ketones NEGATIVE Urine Occult Blood MODERATE H Urine Nitrite POSITIVE H Urine Bilirubin NEGATIVE Urine Urobilinogen 0.2 (NORMAL) Ur Leukocyte Esterase SMALL H Urine RBC 11-25 H Urine WBC >25 H Urine WBC Clumps PRESENT Ur Squamous Epith Cells FEW Squamous Urine Bacteria Few Ur Microscopic Review INDICATED Urine Culture Comments INDICATED Urine HCG, Qual NEGATIVE PD MEDICAL DECISION MAKING - ED course Complexity details: reviewed results, re-evaluated patient, considered differential, d/w patient ED course: Patient was found to have a urinary tract infection in the emergency department. She was started on Bactrim here and given a prescription for the same. We have discussed home management of the symptoms, as well as usual indications for return. Departure - Departure Disposition: 01 Home, Self Care Clinical Impression: Urinary tract infection Qualifiers: Urinary tract infection type: acute cystitis Hematuria presence: without hem aturia Qualified Code(s): N30.00 - Acute cystitis without hematuria Condition: Stable Instructions: ED UTI Cystitis Female Prescriptions: Sulfamethox/Trimeth 800/160 [Bactrim Ds 800/160] 1 each PO BID #14 tablet Discharge Date/Time: 04/03/20 22:45
[2020-04-03 22:43] VITALS: BP 124/82
== END 2020-04-03 22:45 | disposition home or self-care (01) ==
LOC: ED 20:48
DX: N30.00 Acute cystitis without hematuria (principal)
CPT/HCPCS: 81001; 81025; 87086; 99283; A9270; 81003

== ENCOUNTER 2020-11-05 07:17 | Emergency (ER) | payer MEDICAID ==
--- NOTE | 2020-11-05 07:29 | ED Physician Documentation ---
PD HPI NVD - Stated complaint Stated Complaint: N/V - Chief complaint Chief Complaint: General - History obtained from History obtained from: Patient - History of Present Illness Timing - onset: Last night (about 2 am) Timing - duration: Hours Timing - details: Abrupt onset, Still present Associated symptoms: Loss of appetite. No: Fever, Abdominal pain, Hematemesis, Dizzy Contributing factors: Alcohol use (drank heavier with friend last evening. Usually occasional small amount; not regular drinker.). No: Sick contact, Bad food Improved by: No: Vomiting Worsened by: Eating Similar symptoms before: Has not had sx before Review of Systems Constitutional: denies: Fever Nose: denies: Rhinorrhea / runny nose, Congestion Throat: denies: Sore throat Respiratory: denies: Cough GI: reports: Abdominal Pain (epigastric mild intermittent.), Nausea, Vomiting. 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 : Chronic bladder infection HEENT: None Psych: Depression Musculoskeletal: None Derm: None - Past Surgical History Past Surgical History: Yes /ATTENDING AMBULATORY CARE: Tubal ligation, Hysterectomy HEENT: Tonsil/Adenoidectomy - Present Medications Home Medications: Ambulatory Orders Medication Instructions Recorded Confirmed Famotidine [Pepcid] 20 mg PO DAILY #10 tablet 11/05/20 Ondansetron Odt [Zofran] 4 mg TL Q6H PRN #10 tablet 11/05/20 - Allergies Allergies/Adverse Reactions: Allergies Allergy/AdvReac Type Severity Reaction Status Date / Time Penicillins Allergy Hives Verified 11/05/20 07:20 - Social History Does the pt smoke?: No Smoking Status: Never smoker Does the pt drink ETOH?: Yes ETOH Use: Wine, Liquor Does the pt have substance abuse?: No - Immunizations Immunizations are current?: Yes - POLST Patient has POLST: No PD ED PE NORMAL - Vitals Vital signs reviewed: Yes - General General: Alert and oriented X 3, No acute distress, Well developed/nourished - HEENT HEENT: Pharynx benign. No: Moist mucous membranes - Neck Neck: Supple, no meningeal sign, No adenopathy - Cardiac Cardiac: RRR, No murmur - Respiratory Respiratory: Clear bilaterally - Abdomen Abdomen: Normal bowel sounds, Soft, Non distended, No organomegaly, Other (mild epigastric tenderness without guarding. ) - Derm Derm: Normal color, Warm and dry - Extremities Extremities: No tenderness to palpate, No edema, No calf tenderness / cord - Neuro Neuro: Alert and oriented X 3, No motor deficit, Normal speech Results - Vitals Vitals: Vital Signs - 24 hr 11/05/20 11/05/20 11/05/20 07:20 07:33 08:41 Temperature 36.3 C L 37.1 C Heart Rate 106 H 106 H 95 Respiratory 18 20 18 Rate Blood Pressure 124/72 127/75 106/64 O2 Saturation 96 95 99 11/05/20 09:05 Temperature 37 C Heart Rate 104 H Respiratory 18 Rate Blood Pressure 112/59 L O2 Saturation 97 Oxygen O2 Source Room air - Labs Labs: Laboratory Tests 11/05/20 11/05/20 07:46 07:55 WBC 13.0 H RBC 5.00 Hgb 15.5 Hct 45.9 MCV 91.8 MCH 31.0 MCHC 33.8 RDW 12.7 Plt Count 215 MPV 10.5 Neut # (Auto) 11.3 H Lymph # (Auto) 1.2 L [place] # (Auto) 0.3 Eos # (Auto) 0.1 Baso # (Auto) 0.1 Absolute Nucleated RBC 0.00 Nucleated RBC % 0.0 Sodium 143 Potassium 4.3 Chloride 102 Carbon Dioxide 23 Anion Gap 18.0 H BUN 18 Creatinine 0.8 Estimated GFR (MDRD) 81 L Glucose 69 L Calcium 9.2 Total Bilirubin 0.5 AST 22 ALT 22 Alkaline Phosphatase 52 Total Protein 7.3 Albumin 4.5 Globulin 2.8 Albumin/Globulin Ratio 1.6 Lipase 48 PD MEDICAL DECISION MAKING - ED course Complexity details: considered differential (she denies regular alcohol use. Had drank heavier with friend last night and developed nausea and vomiting overnight. ), d/w patient Departure - Departure Disposition: 01 Home, Self Care Clinical Impression: Nausea and vomiting Qualifiers: Vomiting type: bilious vomiting Qualified Code(s): R11.14 - Bilious vomiting Acute gastritis without bleeding Qualifiers: Gastritis type: unspecified gastritis Qualified Code(s): K29.00 - Acute gastritis without bleeding Condition: Stable Record reviewed to determine appropriate education?: Yes Instructions: ED Gastritis Follow-Up: NISH CHENEY ARNP [Primary Care Provider] - Prescriptions: Famotidine [Pepcid] 20 mg PO DAILY #10 tablet Ondansetron Odt [Zofran] 4 mg TL Q6H PRN #10 tablet PRN Reason: Nausea / Vomiting Comments: Frequent fluids through the day today and bland food. Progress diet as tolerated. Ondansetron if needed for nausea. Add antacid such as Maalox or Mylanta if needed for stomach irritation. Tylenol if needed for pains. I would suggest some acid reducing medicine such as famotidine daily for a week or 2 as her stomach will be irritated likely for several days. Recheck if not improved well over the next day or 2. Discharge Date/Time: 11/05/20 09:18
[2020-11-05] MEDS ORDERED: FAMOTIDINE 20 MG/2 ML VIAL IVP STA (07:37)
[2020-11-05] MEDS ORDERED: ONDANSETRON 4 MG/2 ML VIAL IVP STA (07:37)
[2020-11-05] MEDS ORDERED: SODIUM CHLORIDE 0.9% 1,000 ML IV STA (07:37)
[2020-11-05 07:57] LABS: BASOPHILS # (AUTO) 0.1 10^3/uL (0.0-0.1); BASOPHILS % (AUTO) 0.6 %; EOSINOPHILS # (AUTO) 0.1 10^3/uL (0.0-0.7); EOSINOPHILS % (AUTO) 0.5 %; HGB - HEMOGLOBIN 15.5 g/dL (12.0-16.0); LYMPHOCYTES # (AUTO) 1.2 10^3/uL (1.5-3.5); MEAN CORPUSCULAR HGB CONC 33.8 g/dL (32.0-36.0); MEAN CORPUSCULAR VOLUME 91.8 fL (81.0-99.0); MEAN PLATELET VOLUME 10.5 fL (7.9-10.8); MONOCYTES # (AUTO) 0.3 10^3/uL (0.0-1.0); MONOCYTES % (AUTO) 2.3 %; NEUTROPHILS # (AUTO) 11.3 10^3/uL (1.5-6.6); NEUTROPHILS % (AUTO) 87.4 %; PLT - PLATELET COUNT 215 10^3/uL (130-450); RED CELL DISTRIBUTION WIDTH 12.7 % (12.0-15.0)
[2020-11-05 08:21] LABS: ALBUMIN 4.5 g/dL (3.2-5.5); ALBUMIN/GLOBULIN RATIO 1.6 (1.0-2.2); BILIRUBIN,TOTAL 0.5 mg/dL (0.2-1.0); CALCIUM 9.2 mg/dL (8.5-10.3); CREATININE 0.8 mg/dL (0.4-1.0); TOTAL PROTEIN 7.3 g/dL (6.7-8.2)
[2020-11-05] MEDS ORDERED: KETOROLAC 30 MG/ML VIAL IVP STA (08:36)
[2020-11-05] MEDS ORDERED: ACETAMINOPHEN 325 MG TABLET PO STA (08:36)
[2020-11-05 09:06] VITALS: BP 112/59
== END 2020-11-05 09:18 | disposition home or self-care (01) ==
LOC: ED 07:17
DX: K29.00 Acute gastritis without bleeding (principal); R11.14 Bilious vomiting
CPT/HCPCS: 36415; 80053; 83690; 85025; 96361; 96374; 96375; 99283; 99284; A9270

== ENCOUNTER 2021-01-12 18:40 | Emergency (ER) | payer OTHER, MEDICAID ==
--- OUTSIDE RECORDS SUMMARY | 2021-01-12 18:44 | EXTERNAL MEDICAL SUMMARY RPT | Continuity of Care Document ---
:1985 Demographics Phone Unavailable Preferred Language Puerto Rican Marital Status Unknown Tenriism Affiliation Unknown Race Unknown Ethnic Group Unknown Author Organization [place] Address [address] [phone] Phone Care Team Providers Name Role Phone [place] Unavailable Unavailable Problems date description facility [id number] Contact with and (suspected) exposure t o COVID-19 [facility] [id number] Localized swelling, mass and lump, lowe r limb, [facility] bilateral [phone] Neoplasm of uncertain behavior, unspeci [facility] [phone] Paresthesia of skin [facility] [id number] Pruritus, unspecified [facility] Social History date description facility [phone]
--- OUTSIDE RECORDS SUMMARY | 2021-01-12 19:15 | EXTERNAL MEDICAL SUMMARY RPT | Continuity of Care Document ---
:1985 Demographics Phone Unavailable Preferred Language Vietnamese Marital Status Unknown Sabianism Affiliation Unknown Race Unknown Ethnic Group Unknown Author Organization [place] Address [address] [phone] Phone Care Team Providers Name Role Phone [place] Unavailable Unavailable Problems date description facility [id number] Contact with and (suspected) exposure t o COVID-19 [facility] [phone] Localized swelling, mass and lump, lowe r limb, [facility] bilateral [phone] Neoplasm of uncertain behavior, unspeci [facility] [id number] Paresthesia of skin [facility] [id number] Pruritus, unspecified [facility] Social History date description facility [phone]
[2021-01-12 19:18] LABS: BASOPHILS # (AUTO) 0.1 10^3/uL (0.0-0.1); BASOPHILS % (AUTO) 0.5 %; EOSINOPHILS # (AUTO) 0.2 10^3/uL (0.0-0.7); EOSINOPHILS % (AUTO) 2.3 %; HCT - HEMATOCRIT 42.7 % (37.0-47.0); HGB - HEMOGLOBIN 14.4 g/dL (12.0-16.0); LYMPHOCYTES # (AUTO) 2.8 10^3/uL (1.5-3.5); LYMPHOCYTES % (AUTO) 30.8 %; MEAN CORPUSCULAR HEMOGLOBIN 30.6 pg (27.0-31.0); MEAN CORPUSCULAR HGB CONC 33.7 g/dL (32.0-36.0); MEAN CORPUSCULAR VOLUME 90.7 fL (81.0-99.0); MEAN PLATELET VOLUME 10.2 fL (7.9-10.8); MONOCYTES # (AUTO) 0.6 10^3/uL (0.0-1.0); MONOCYTES % (AUTO) 6.4 %; NEUTROPHILS # (AUTO) 5.5 10^3/uL (1.5-6.6); NEUTROPHILS % (AUTO) 59.9 %; PLT - PLATELET COUNT 226 10^3/uL (130-450); RED BLOOD COUNT 4.71 10^6/uL (4.20-5.40); RED CELL DISTRIBUTION WIDTH 12.1 % (12.0-15.0); WHITE BLOOD COUNT 9.1 x10^3/uL (4.8-10.8)
[2021-01-12 19:22] LABS: VBG PH 7.402 (7.31-7.41); VBG PO2 34.4 mmHg (25-47)
[2021-01-12 19:23] LABS: VBG BASE EXCESS 1.6 mmol/L (-2 - +2); VBG HCO3 26.8 mmol/L (23-28); VBG OXYGEN SATURATION 69.3 % (60-80); VBG TOTAL CO2 28.1 mmol/L (24-29)
[2021-01-12 19:31] LABS: ALBUMIN 4.3 g/dL (3.2-5.5); ALBUMIN/GLOBULIN RATIO 1.5 (1.0-2.2); ALKALINE PHOSPHATASE 47 IU/L (42-121); ALT ALANINE AMINOTRANSFERASE 19 IU/L (10-60); AST ASPARTATE AMINOTRANSFERASE 18 IU/L (10-42); BILIRUBIN,TOTAL 0.9 mg/dL (0.2-1.0); BUN - BLOOD UREA NITROGEN 12 mg/dL (6-20); CALCIUM 9.4 mg/dL (8.5-10.3); CARBON DIOXIDE - CO2 25 mmol/L (21-32); CHLORIDE 100 mmol/L (101-111); CREATININE 0.7 mg/dL (0.4-1.0); ETOH - ETHANOL < 5.0 mg/dL; GFR - MDRD 95 (>89); GLUCOSE 96 mg/dL (70-100); LIPASE 60 U/L (22-51); POTASSIUM 3.5 mmol/L (3.5-5.0); SODIUM 135 mmol/L (135-145); TOTAL PROTEIN 7.1 g/dL (6.7-8.2)
[2021-01-12 19:44] LABS: MUDS CUTOFF CONCENTRATIONS CUTOFF CONC BELOW:
[2021-01-12 19:47] LABS: BILIRUBIN,URINE NEGATIVE (NEGATIVE); GLUCOSE, URINE (UA) NEGATIVE (NEGATIVE); KETONES,URINE (UA) 40 mg/dL (NEGATIVE); LEUKOCYTE ESTERASE, URINE TRACE (NEGATIVE); NITRITE,URINE NEGATIVE (NEGATIVE); OCCULT BLOOD,URINE MODERATE (NEGATIVE); PH,URINE 5.5 PH (5.0-7.5); PROTEIN,URINE NEGATIVE (NEGATIVE); UROBILINOGEN,URINE 0.2 (NORMAL) E.U./dL (NORMAL)
--- NOTE | 2021-01-12 19:55 | ED Physician Documentation ---
History of Present Illness - Stated complaint Stated Complaint: NUMBNESS - Chief complaint Chief Complaint: General - History obtained from History obtained from: Patient - Additonal information Additional information: 35-year-old woman had to go down to [place] last week. She returned on and the subsequent day she had pain in her right leg that lasted only that day. She was doing okay over the weekend but today this afternoon she developed some low back pain and weakness more in the lower extremities than upper extremities as well as numbness in the lower extremities. She had some presyncope with it. She does have a history of factor V Leiden, currently not anticoagulated. 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 : Chronic bladder infection HEENT: None Psych: Depression Musculoskeletal: None Derm: None - Past Surgical History Past Surgical History: Yes /PRESSURE VESSEL INSPECTOR: Tubal ligation, Hysterectomy HEENT: Tonsil/Adenoidectomy - Present Medications Home Medications: Ambulatory Orders Medication Instructions Recorded Confirmed Famotidine [Pepcid] 20 mg PO DAILY #10 tablet 11/05/20 Ondansetron Odt [Zofran] 4 mg TL Q6H PRN #10 tablet 11/05/20 - Allergies Allergies/Adverse Reactions: Allergies Allergy/AdvReac Type Severity Reaction Status Date / Time Penicillins Allergy Hives Verified 01/12/21 18:43 - Social History Does the pt smoke?: No Smoking Status: Never smoker Does the pt drink ETOH?: Yes Does the pt have substance abuse?: No - Immunizations Immunizations are current?: Yes - POLST Patient has POLST: No PD ED PE NORMAL - Vitals Vital signs reviewed: Yes - General General: Alert and oriented X 3, No acute distress - HEENT HEENT: PERRL, EOMI - Neck Neck: Supple, no meningeal sign, No bony TTP - Cardiac Cardiac: RRR, No murmur - Respiratory Respiratory: No respiratory distress, Clear bilaterally - Abdomen Abdomen: Normal bowel sounds, Soft, Non tender - Extremities Extremities: Other (She is quite weak in flexion extension at both ankles and toes. Also weak in mounter hand strength in upper and lower extremities. She has hyperactive reflexes in the lower extremities. Mild decreased sensation throughout.) - Neuro Neuro: Alert and oriented X 3, inside account representative 2-12 intact, Normal speech Eye Opening: Spontaneous Motor: Obeys Commands Verbal: Oriented GCS Score: 15 Results - Vitals Vitals: Vital Signs - 24 hr 01/12/21 01/12/21 01/12/21 18:43 20:48 22:00 Temperature 36.5 C Heart Rate 84 83 70 Respiratory 16 18 16 Rate Blood Pressure 119/87 H 122/79 138/81 H O2 Saturation 97 100 99 Oxygen O2 Source Room air - Labs Labs: Laboratory Tests 01/12/21 01/12/21 01/12/21 19:13 19:13 19:13 WBC 9.1 RBC 4.71 Hgb 14.4 Hct 42.7 MCV 90.7 MCH 30.6 MCHC 33.7 RDW 12.1 Plt Count 226 MPV 10.2 Neut # (Auto) 5.5 Lymph # (Auto) 2.8 [place] # (Auto) 0.6 Eos # (Auto) 0.2 Baso # (Auto) 0.1 Absolute Nucleated RBC 0.00 Nucleated RBC % 0.0 VBG pH VBG pCO2 VBG pO2 VBG HCO3 VBG Total CO2 VBG O2 Saturation VBG Base Excess Sodium 135 Potassium 3.5 Chloride 100 L Carbon Dioxide 25 Anion Gap 10.0 BUN 12 Creatinine 0.7 Estimated GFR (MDRD) 95 Glucose 96 Calcium 9.4 Total Bilirubin 0.9 AST 18 ALT 19 Alkaline Phosphatase 47 Total Protein 7.1 Albumin 4.3 Globulin 2.8 Albumin/Globulin Ratio 1.5 Lipase 60 H TSH 1.61 Urine Color Urine Clarity Urine pH Ur Specific [place] Urine Protein Urine Glucose (UA) Urine Ketones Urine Occult Blood Urine Nitrite Urine Bilirubin Urine Urobilinogen Ur Leukocyte Esterase Urine RBC Urine WBC Ur Squamous Epith Cells Amorphous Sediment Urine Bacteria Urine Mucus Ur Microscopic Review Urine Culture Comments Urine HCG, Qual Nasal Adenovirus (PCR) Nasal B. parapertussis DNA (PCR) Nasal Coronavir 229E PCR Nasal Coronavir HKU1 PCR Nasal Coronavir NL63 PCR Nasal Coronavir OC43 PCR Nasal Enterovir/Rhinovir PCR Nasal Influenza B PCR Nasal Influenza A PCR Nasal Parainfluen 1 PCR Nasal Parainfluen 2 PCR Nasal Parainfluen 3 PCR Nasal Parainfluen 4 PCR Nasal RSV (PCR) Nasal B.pertussis DNA PCR Nasal C.pneumoniae (PCR) [place] Human Metapneumo PCR Nasal M.pneumoniae (PCR) Nasal SARS-CoV-2 (PCR) Urine Opiates Screen Ur Oxycodone Screen Urine Methadone Screen Ur Propoxyphene Screen Ur Barbiturates Screen Ur Tricyclics Screen Ur Phencyclidine Scrn Ur Amphetamine Screen U Methamphetamines Scrn U Benzodiazepines Scrn Urine Cocaine Screen U Cannabinoids Screen Ethyl Alcohol < 5.0 01/12/21 01/12/21 01/12/21 19:13 19:32 19:56 WBC RBC Hgb Hct MCV MCH MCHC RDW Plt Count MPV Neut # (Auto) Lymph # (Auto) [place] # (Auto) Eos # (Auto) Baso # (Auto) Absolute Nucleated RBC Nucleated RBC % VBG pH 7.402 VBG pCO2 44.0 VBG pO2 34.4 VBG HCO3 26.8 VBG Total CO2 28.1 VBG O2 Saturation 69.3 VBG Base Excess 1.6 Sodium Potassium Chloride Carbon Dioxide Anion Gap BUN Creatinine Estimated GFR (MDRD) Glucose Calcium Total Bilirubin AST ALT Alkaline Phosphatase Total Protein Albumin Globulin Albumin/Globulin Ratio Lipase TSH Urine Color YELLOW Urine Clarity CLEAR Urine pH 5.5 Ur Specific [place] >=1.030 H Urine Protein NEGATIVE Urine Glucose (UA) NEGATIVE Urine Ketones 40 H Urine Occult Blood MODERATE H Urine Nitrite NEGATIVE Urine Bilirubin NEGATIVE Urine Urobilinogen 0.2 (NORMAL) Ur Leukocyte Esterase TRACE H Urine RBC 6-10 H Urine WBC 6-10 H Ur Squamous Epith Cells MOD Squamous H Amorphous Sediment Moderate Urine Bacteria Few Urine Mucus Few Strands Ur Microscopic Review INDICATED Urine Culture Comments NOT INDICATED Urine HCG, Qual NEGATIVE Nasal Adenovirus (PCR) NOT DETECTED Nasal B. parapertussis DNA (PCR) NOT DETECTED Nasal Coronavir 229E PCR NOT DETECTED Nasal Coronavir HKU1 PCR NOT DETECTED Nasal Coronavir NL63 PCR NOT DETECTED Nasal Coronavir OC43 PCR NOT DETECTED Nasal Enterovir/Rhinovir PCR NOT DETECTED Nasal Influenza B PCR NOT DETECTED Nasal Influenza A PCR NOT DETECTED Nasal Parainfluen 1 PCR NOT DETECTED Nasal Parainfluen 2 PCR NOT DETECTED Nasal Parainfluen 3 PCR NOT DETECTED Nasal Parainfluen 4 PCR NOT DETECTED Nasal RSV (PCR) NOT DETECTED Nasal B.pertussis DNA PCR NOT DETECTED Nasal C.pneumoniae (PCR) NOT DETECTED [place] Human Metapneumo PCR NOT DETECTED Nasal M.pneumoniae (PCR) NOT DETECTED Nasal SARS-CoV-2 (PCR) NOT DETECTED Urine Opiates Screen NEGATIVE Ur Oxycodone Screen NEGATIVE Urine Methadone Screen NEGATIVE Ur Propoxyphene Screen NEGATIVE Ur Barbiturates Screen NEGATIVE Ur Tricyclics Screen NEGATIVE Ur Phencyclidine Scrn NEGATIVE Ur Amphetamine Screen NEGATIVE U Methamphetamines Scrn NEGATIVE U Benzodiazepines Scrn NEGATIVE Urine Cocaine Screen NEGATIVE U Cannabinoids Screen NEGATIVE Ethyl Alcohol - Rads (name of study) Head Radiology: EMP read contemporaneously (NAD) Procedures - General procedure General procedure: She was difficult for IV access, multiple nurses tried and failed. I personally placed a long 22-gauge IV in the right deep brachial vein after ChloraPrep with real-time ultrasound guidance which flushed and laurie well. PD MEDICAL DECISION MAKING - ED course ED course: 35-year-old woman presents with numbness and weakness of lower more than upper extremities. Given her history of factor V, DVT and PE are considered but given lack of chest pain, trouble breathing, normal vitals. This is unlikely. More worried about something along the lines of transverse myelitis and may benefit from transfer to a facility capable of neurology and MRI coverage. [facility] is looking for a bed, handled by the E pro physician there, Dr. Mack. Departure - Departure Disposition: 02 Transfer Acute Care Hosp Clinical Impression: Weakness, Numbness Condition: Fair
[2021-01-12 20:06] LABS: AMPHETAMINE SCREEN,URINE NEGATIVE (NEGATIVE); BARBITURATE SCREEN,UR NEGATIVE (NEGATIVE); BENZODIAZEPINES SCREEN, URINE NEGATIVE (NEGATIVE); CLARITY,URINE CLEAR (CLEAR); COCAINE SCREEN URINE NEGATIVE (NEGATIVE); HCG UR QUAL NEGATIVE; METHADONE SCREEN, URINE NEGATIVE (NEGATIVE); METHAMPHETAMINES SCREEN, URINE NEGATIVE (NEGATIVE); OPIATE SCREEN, URINE NEGATIVE (NEGATIVE); OXYCODONE SCREEN, URINE NEGATIVE (NEGATIVE); PROPOXYPHENE SCREEN, URINE NEGATIVE (NEGATIVE); THC CANNABINOID SCREEN, URINE NEGATIVE (NEGATIVE); TRICYCLIC ANTIDEPRESSANT,URINE NEGATIVE (NEGATIVE)
[2021-01-12 20:09] LABS: AMORPHOUS SEDIMENT,UR Moderate /LPF; BACTERIA,URINE Few /HPF (None Seen); MUCUS,URINE Few Strands; SQUAMOUS EPITHELIAL CELL,UR MOD Squamous (<= Few)
--- NOTE | 2021-01-12 20:45 | CT Report ---
PROCEDURE: HEAD WO INDICATIONS: weakness TECHNIQUE: Noncontrast 4.5 mm thick angled axial sections acquired from the foramen magnum to the vertex. For r adiation dose reduction, the following was used: automated exposure control, adjustment of mA and/or kV according to patient size. COMPARISON: 02/13/[address] FINDINGS: Image quality: Excellent. CSF spaces: Basal cisterns are patent. No extra-axial fluid collections. Ventricles are normal in size and shape. Brain: No midline shift. No intracranial masses or hemorrhage. Loera-white matter interface is norm al. Skull and face: Calvarium and visualized facial bones are intact, without suspicious lesions. Sinuses: Visualized sinuses and mastoids are clear. IMPRESSION: Reviewed by: Mukund Jorge MD on 01/12/2021 8:43 PM PDT Approved by: Mukund Jorge MD on 01/12/2021 8:43 PM PDT Station ID: [id number]
[2021-01-12 21:35] LABS: B. PARAPERTUSSIS- RESP PCR PAN NOT DETECTED; B. PERTUSSIS- RESP PCR PANEL NOT DETECTED; C. PNEUMONIAE- RESP PCR PANEL NOT DETECTED; CORONAVIRUS 229E-RESP PCR NOT DETECTED; CORONAVIRUS HKU1-RESP PCR NOT DETECTED; CORONAVIRUS NL63-RESP PCR NOT DETECTED; CORONAVIRUS OC43-RESP PCR NOT DETECTED; HUMAN METAPNEUMOVIRUS NOT DETECTED; INFLUENZA A- RESP PCR PANEL NOT DETECTED; INFLUENZA B - RESP PCR PANEL NOT DETECTED; M. PNEUMONIAE- RESP PCR PANEL NOT DETECTED; PARAINFLUENZA VIRUS 1 NOT DETECTED; PARAINFLUENZA VIRUS 2 NOT DETECTED; PARAINFLUENZA VIRUS 3 NOT DETECTED; PARAINFLUENZA VIRUS 4 NOT DETECTED; RHINOVIRUS/ENTEROVIRUS NOT DETECTED; RSV- RESP PCR PANEL NOT DETECTED; SARS-CoV-2 -RESP PCR PANEL NOT DETECTED
[2021-01-12 22:02] VITALS: BP 138/81
== END 2021-01-12 23:05 | disposition short-term general hospital (02) ==
LOC: ED 18:40
DX: R53.1 Weakness (principal); R29.898 Other symptoms and signs involving the musculoskeletal system; R20.0 Anesthesia of skin; Z20.822 Contact with and (suspected) exposure to COVID-19; D68.51 Activated protein C resistance; Z86.718 Personal history of other venous thrombosis and embolism; Z86.711 Personal history of pulmonary embolism
CPT/HCPCS: 0202U; 36415; 70450; 80053; 80306; 80320; 81001; 81025; 82803; 83690; 84443; 85025; 99284; 99285; 81003; 87086

== ENCOUNTER 2021-01-12 23:05 | Outpatient (CLI) | payer OTHER, MEDICAID | END 2021-01-12 23:06 | disposition short-term general hospital (02) | LOC: EMS 23:05 | PROVIDERS: ATTEND Emergency Medicine | DX: R53.1 Weakness (principal) | CPT/HCPCS: A0425; A0428 ==

== ENCOUNTER 2021-07-27 21:31 | Emergency (ER) | payer OTHER, MEDICAID ==
--- NOTE | 2021-07-27 21:52 | ED Physician Documentation ---
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 She says there was a visible foreign body but she was able to remove it. 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 : Chronic bladder infection HEENT: None Psych: Depression Musculoskeletal: None Derm: None - Past Surgical History Past Surgical History: Yes /PLATING TANK OPERATOR APPRENTICE: Tubal ligation, Hysterectomy HEENT: Tonsil/Adenoidectomy - Present Medications Home Medications: Ambulatory Orders Medication Instructions Recorded Confirmed Famotidine [Pepcid] 20 mg PO DAILY #10 tablet 11/05/20 Ondansetron Odt [Zofran] 4 mg TL Q6H PRN #10 tablet 11/05/20 - Allergies Allergies/Adverse Reactions: Allergies Allergy/AdvReac Type Severity Reaction Status Date / Time Penicillins Allergy Hives Verified 07/27/21 21:44 - Social History Does the pt smoke?: No Smoking Status: Never smoker Does the pt drink ETOH?: Yes Does the pt have substance abuse?: No - Immunizations Immunizations are current?: Yes - POLST Patient has POLST: No PD ED PE NORMAL - Vitals Vital signs reviewed: Yes - General General: Alert and oriented X 3, No acute distress - Extremities Extremities: No tenderness to palpate PD ED PE EXPANDED - Extremities Extremities: Other (right thumb: no laceration, no visible puncture wound, no FB). No: Tenderness, Swelling, Laceration Results - Vitals Vitals: Vital Signs - 24 hr 07/27/21 07/27/21 21:42 22:06 Temperature 36.6 C 36.6 C Heart Rate 96 95 Respiratory 15 16 Rate Blood Pressure 126/80 125/79 O2 Saturation 96 97 Oxygen O2 Source Room air PD MEDICAL DECISION MAKING - ED course Complexity details: considered differential, d/w patient ED course: patient reports having sustained a puncture wound to pad of right thumb tonight and subsequently removed a metallic FB from the site of injury. She presents requesting tetanus shot, last booster was 11 years ago. No evidence of injury on exam but given the report of puncture and removed FB, tetanus booster is appropriate and given in ED Departure - Departure Disposition: 01 Home, Self Care Clinical Impression: Puncture wound of thumb, right, Need for tetanus booster Condition: Good Instructions: ED Wound Puncture General, ED Immunization Tetanus and FU Discharge Date/Time: 07/27/21 22:19
[2021-07-27] MEDS ORDERED: TETANUS/DIPHTHERIA/PERTUSSIS 0.5 ML SYRINGE IM ONE (21:58)
[2021-07-27 22:07] VITALS: BP 125/79
== END 2021-07-27 22:19 | disposition home or self-care (01) ==
LOC: ED 21:31
DX: S61.041A Puncture wound with foreign body of right thumb without damage to nail, initial encounter (principal); W45.8XXA Other foreign body or object entering through skin, initial encounter; W22.8XXA Striking against or struck by other objects, initial encounter; Z86.711 Personal history of pulmonary embolism; Z86.718 Personal history of other venous thrombosis and embolism
CPT/HCPCS: 90471; 99282; 99283

== ENCOUNTER 2021-08-09 21:19 | Emergency (ER) | payer OTHER, MEDICAID ==
[2021-08-09] MEDS ORDERED: KETOROLAC 30 MG/ML VIAL IM STA (21:43)
[2021-08-09] MEDS ORDERED: ACETAMINOPHEN 325 MG TABLET PO STA (22:14)
[2021-08-09] MEDS ORDERED: oxyCODONE 5 MG TABLET PO STA (22:14)
--- NOTE | 2021-08-09 22:15 | ED Physician Documentation ---
History of Present Illness - Stated complaint Stated Complaint: LOW BACK PX - Chief complaint Chief Complaint: Back Pain - History obtained from History obtained from: Patient - Additonal information Additional information: 36yF with chronic low back pain and bulging disc p/w acute on chronic low back pain this evening. patient is going to see pain specialist but doesn't have appointment yet and states her primary said they can't prescribe pain meds. denies focal weakness. often has shooting numbness/tingling down R leg. 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 : Chronic bladder infection HEENT: None Psych: Depression Musculoskeletal: Chronic back pain Derm: None Other Past Medical History: Factor V disorder - Past Surgical History Past Surgical History: Yes /JAVA APPLICATION ENGINEER: Tubal ligation, Hysterectomy HEENT: Tonsil/Adenoidectomy - Present Medications Home Medications: Ambulatory Orders Medication Instructions Recorded Confirmed Sertraline [Zoloft] 50 mg PO DAILY 08/09/21 08/09/21 - Allergies Allergies/Adverse Reactions: Allergies Allergy/AdvReac Type Severity Reaction Status Date / Time Penicillins Allergy Hives Verified 08/09/21 21:27 - Social History Does the pt smoke?: No Smoking Status: Never smoker Does the pt drink ETOH?: Yes Does the pt have substance abuse?: No - Immunizations Immunizations are current?: Yes - POLST Patient has POLST: No PD ED PE NORMAL - Vitals Vital signs reviewed: Yes - General General: Alert and oriented X 3, No acute distress, Well developed/nourished - HEENT HEENT: Atraumatic, PERRL, EOMI - Neck Neck: No bony TTP - Back Back: No spinal TTP - Derm Derm: Normal color, Warm and dry - Extremities Extremities: Other (2+ DP pulses. normal sensation, strength) - Neuro Neuro: No motor deficit, No sensory deficit, Other (normal gait) Results - Vitals Vitals: Vital Signs - 24 hr 08/09/21 08/09/21 08/09/21 21:27 22:23 22:35 Temperature 36.5 C 36.5 C 36.4 C L Heart Rate 70 72 65 Respiratory 16 16 16 Rate Blood Pressure 125/84 H 122/78 137/92 H O2 Saturation 98 99 100 Oxygen O2 Source Room air PD MEDICAL DECISION MAKING - ED course ED course: 36yF p/w chronic low back pain without concerning features eg. fecal/urinary incont/retention, saddle anesthesia or focal weakness. advised her that I cannot prescribe pain medicine for chronic back pain in the ED, discussed alternative therapies and encouraged her to seek out PT and f/u with her pain specialist. return precautions discussed. Departure - Departure Disposition: 01 Home, Self Care Clinical Impression: Chronic back pain Condition: Good Instructions: ED Chronic Pain Management Comments: You were seen in the emergency department for lower back pain. Please follow up with your primary doctor and portrait painter. Return to the ED if you have any new or worsening symptoms or other concerns. Discharge Date/Time: 08/09/21 22:39
[2021-08-09 22:44] VITALS: BP 137/92
== END 2021-08-09 22:39 | disposition home or self-care (01) ==
LOC: ED 21:19
DX: M54.50 Low back pain, unspecified (principal); G89.29 Other chronic pain
CPT/HCPCS: 96372; 99282; 99283; A9270

== ENCOUNTER 2022-02-01 23:27 | Emergency (ER) | payer OTHER, MEDICAID ==
[2022-02-01] MEDS ORDERED: ONDANSETRON 4 MG/2 ML VIAL IVP STA (23:56)
[2022-02-01] MEDS ORDERED: SODIUM CHLORIDE 0.9% 1,000 ML IV STA (23:56)
--- NOTE | 2022-02-02 00:21 | ED Physician Documentation ---
PD HPI NVD - Stated complaint Stated Complaint: N,V,D,WEAKNESS - Chief complaint Chief Complaint: Abd Pain - History obtained from History obtained from: Patient - Additonal information Additional information: Patient is a 36-year-old female presenting for evaluation of nausea, vomiting and diarrhea that started this evening around 8 PM. 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 This evening she has had several loose watery stools as well as episodes of emesis consisting of food. Denies blood in emesis or stools. Per patient her daughter has been sick with episodes of emesis since Tuesday and another child became ill with vomiting also today. She is unsure if they have had diarrhea as she was at work all day.She denies fevers. She reports feeling achy. She tried to hydrate with water but continued to vomit but prompting her to present to the emergency department. She reports having chronic back pain and feelsThat her pain has worsened because of the vomiting. She also reports some mild dysuria that started this evening. She denies concern for . Review of Systems Constitutional: denies: Fever Nose: denies: Congestion Throat: denies: Sore throat Cardiac: denies: Chest pain / pressure, Palpitations Respiratory: denies: Dyspnea, Cough GI: reports: Nausea, Vomiting, Diarrhea. denies: Abdominal Pain : reports: Dysuria. 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: Tubal ligation, Hysterectomy HEENT: Tonsil/Adenoidectomy - Present Medications Home Medications: Ambulatory Orders Medication Instructions Recorded Confirmed Ondansetron Odt [Zofran] 4 mg TL Q6H PRN #10 tablet 02/02/22 - Allergies Allergies/Adverse Reactions: Allergies Allergy/AdvReac Type Severity Reaction Status Date / Time Penicillins Allergy Hives Verified 02/01/22 23:34 - Social History Does the pt smoke?: No Smoking Status: Never smoker Does the pt drink ETOH?: Yes Does the pt have substance abuse?: No - Immunizations Immunizations are current?: Yes - POLST Patient has POLST: No PD ED PE NORMAL - General General: Alert and oriented X 3, No acute distress, Well developed/nourished - HEENT HEENT: Atraumatic, Moist mucous membranes, Pharynx benign - Neck Neck: Supple, no meningeal sign - Cardiac Cardiac: RRR, No murmur, Strong equal pulses, Other (Tachycardic, regular rhythm) - Respiratory Respiratory: No respiratory distress, Clear bilaterally - Abdomen Abdomen: Normal bowel sounds, Soft, Non distended, Other (Mild epigastric tenderness) - Derm Derm: Normal color, No rash - Extremities Extremities: No deformity, No edema, Other (Intact distal pulses) - Neuro Neuro: Alert and oriented X 3, No motor deficit, Normal speech - Psych Psych: Normal mood, Normal affect Results - Vitals Vitals: Vital Signs - 24 hr 02/01/22 02/02/22 02/02/22 23:31 01:22 03:00 Temperature 36.7 C 37.2 C Heart Rate 134 H 96 100 Respiratory 18 20 12 Rate Blood Pressure 118/70 111/72 108/74 O2 Saturation 99 97 99 Oxygen O2 Source Room air - Labs Labs: Laboratory Tests 02/01/22 02/01/22 02/02/22 00:30 00:30 02:00 WBC 13.8 H RBC 5.17 Hgb 15.8 Hct 46.1 MCV 89.2 MCH 30.6 MCHC 34.3 RDW 12.5 Plt Count 203 MPV 10.0 Neut # (Auto) 12.5 H Lymph # (Auto) 0.5 [place] # (Auto) 0.5 Eos # (Auto) 0.1 Baso # (Auto) 0.1 Absolute Nucleated RBC 0.00 Nucleated RBC % 0.0 Sodium 137 Potassium 3.6 Chloride 101 Carbon Dioxide 24 Anion Gap 12.0 BUN 14 Creatinine 0.7 Estimated GFR (MDRD) 94 Glucose 126 H Calcium 9.5 Total Bilirubin 1.0 AST 22 ALT 20 Alkaline Phosphatase 51 Total Protein 7.6 Albumin 4.6 Globulin 3.0 Albumin/Globulin Ratio 1.5 Lipase 43 Urine Color YELLOW Urine Clarity CLEAR Urine pH 5.0 Ur Specific [place] >=1.030 H Urine Protein TRACE Urine Glucose (UA) NEGATIVE Urine Ketones 40 H Urine Occult Blood MODERATE H Urine Nitrite NEGATIVE Urine Bilirubin NEGATIVE Urine Urobilinogen 0.2 (NORMAL) Ur Leukocyte Esterase NEGATIVE Urine RBC 0-5 Urine WBC 0-3 Ur Squamous Epith Cells FEW Squamous Urine Bacteria Rare Ur Microscopic Review INDICATED Urine Culture Comments NOT INDICATED Urine HCG, Qual NEGATIVE PD MEDICAL DECISION MAKING - ED course Complexity details: reviewed results, re-evaluated patient, d/w patient ED course: Patient is a 36-year-old female presenting for evaluation of nausea, vomiting and diarrhea.She is slightly tachycardic upon arrival. Labs obtained without significant abnormalities.Abdominal exam is benign. Patient received IV fluid bolus and antinausea medications with improvement in her symptoms. She was able to tolerate p.o. She had no further episodes of diarrhea. Her urine analysis did not suggest an infection. I did show positive for occult blood and negative RBC but this appears to be similar to previous UAs patient has had. Patient has 2 other family members with similar symptoms. Suspect a viral process. Patient counseled on continuing supportive care and instructed on strict return precautions. Departure - Departure Disposition: 01 Home, Self Care Clinical Impression: Nausea vomiting and diarrhea Condition: Stable Instructions: ED Diet Vomiting Diarrhea Prescriptions: Ondansetron Odt [Zofran] 4 mg TL Q6H PRN #10 tablet PRN Reason: Nausea / Vomiting Comments: Shanique - Your evaluated for nausea, vomiting and diarrhea.Other family members also have similar symptoms, it is likely due to a viral illness. Your labs were obtained and are overall very reassuring with normal electrolytes. You are given IV fluids and medications to help with the nausea.Your urine did not show infection. I do not think you need antibiotics tonight. I have sent medications to help with nausea to the [facility] in [place].Please start with a clear liquid and bland diet tomorrow. You can advance your diet as tolerated. If you are still not able to Tolerate liquids despite the nausea medication, develop abdominal pain or have any new concerning symptoms please return to the emergency department for another evaluation. Discharge Date/Time: 02/02/22 03:49
[2022-02-02 00:38] LABS: BASOPHILS # (AUTO) 0.1 10^3/uL (0.0-0.1); BASOPHILS % (AUTO) 0.4 %; EOSINOPHILS # (AUTO) 0.1 10^3/uL (0.0-0.7); EOSINOPHILS % (AUTO) 0.7 %; HCT - HEMATOCRIT 46.1 % (37.0-47.0); HGB - HEMOGLOBIN 15.8 g/dL (12.0-16.0); LYMPHOCYTES # (AUTO) 0.5 10^3/uL (1.5-3.5); LYMPHOCYTES % (AUTO) 3.9 %; MEAN CORPUSCULAR HEMOGLOBIN 30.6 pg (27.0-31.0); MEAN CORPUSCULAR HGB CONC 34.3 g/dL (32.0-36.0); MEAN CORPUSCULAR VOLUME 89.2 fL (81.0-99.0); MONOCYTES # (AUTO) 0.5 10^3/uL (0.0-1.0); MONOCYTES % (AUTO) 3.8 %; NEUTROPHILS # (AUTO) 12.5 10^3/uL (1.5-6.6); PLT - PLATELET COUNT 203 10^3/uL (130-450); RED BLOOD COUNT 5.17 10^6/uL (4.20-5.40); RED CELL DISTRIBUTION WIDTH 12.5 % (12.0-15.0); WHITE BLOOD COUNT 13.8 x10^3/uL (4.8-10.8)
[2022-02-02] MEDS ORDERED: KETOROLAC 30 MG/ML VIAL IVP STA (00:38)
[2022-02-02 00:49] LABS: ALBUMIN 4.6 g/dL (3.2-5.5); ALBUMIN/GLOBULIN RATIO 1.5 (1.0-2.2); CALCIUM 9.5 mg/dL (8.5-10.3); CREATININE 0.7 mg/dL (0.4-1.0); POTASSIUM 3.6 mmol/L (3.5-5.0); TOTAL PROTEIN 7.6 g/dL (6.7-8.2)
[2022-02-02 02:09] LABS: CLARITY,URINE CLEAR (CLEAR); GLUCOSE, URINE (UA) NEGATIVE (NEGATIVE); KETONES,URINE (UA) 40 mg/dL (NEGATIVE); LEUKOCYTE ESTERASE, URINE NEGATIVE (NEGATIVE); NITRITE,URINE NEGATIVE (NEGATIVE); OCCULT BLOOD,URINE MODERATE (NEGATIVE); PROTEIN,URINE TRACE mg/dL (NEGATIVE); UROBILINOGEN,URINE 0.2 (NORMAL) E.U./dL (NORMAL)
[2022-02-02 02:12] LABS: BILIRUBIN,URINE NEGATIVE (NEGATIVE); HCG UR QUAL NEGATIVE; ICTOTEST,URINE NEGATIVE
[2022-02-02 02:19] LABS: BACTERIA,URINE Rare /HPF (None Seen); RBC,URINE 0-5 /HPF (0-5); SQUAMOUS EPITHELIAL CELL,UR FEW Squamous (<= Few); WBC,URINE 0-3 /HPF (0-5)
[2022-02-02] MEDS ORDERED: ONDANSETRON 4 MG/2 ML VIAL IVP STA (02:19)
[2022-02-02] MEDS ORDERED: PROMETHAZINE INJ 25 MG in SODIUM CHLORIDE 0.9% 50 ML IV STA (02:21)
[2022-02-02] MEDS ORDERED: PROMETHAZINE 25 MG/1 ML VIAL ONE (02:36)
[2022-02-02] MEDS ORDERED: ACETAMINOPHEN 325 MG TABLET PO STA (03:02)
[2022-02-02 03:13] VITALS: BP 108/74
== END 2022-02-02 03:49 | disposition home or self-care (01) ==
LOC: ED 23:27
DX: R11.2 Nausea with vomiting, unspecified (principal); R19.7 Diarrhea, unspecified
CPT/HCPCS: 36415; 80053; 81001; 81025; 83690; 85025; 93005; 96361; 96365; 96375; 99282; 99284; A9270; J7040; 81003; 87086

== ENCOUNTER 2022-07-15 20:39 | Emergency (ER) | payer OTHER, MEDICAID ==
[2022-07-15 20:48] VITALS: BP 134/97
--- OUTSIDE RECORDS SUMMARY | 2022-07-15 21:00 | EXTERNAL MEDICAL SUMMARY RPT | Continuity of Care Document ---
:1985 Author Organization [facility] Address [address] [place] [address] Phone Allergies No information. Encounters No information. Functional Status No information. Immunizations No information. Medications No information. Problems No information. Procedures No information. Results/Labs test date author facility value unit interpret ation Result panel 1 (unknown) (no (unknown) (unknown) (no value) (units (unk nown) date) unknown) (unknown) (no (unknown) (unknown) ANAPHYLAXIS/HIVES (units (unknown) date) unknown) (unknown) (no (unknown) (unknown) [place], [place] (units ( unknown) date) [id number] unknown) (unknown) (no (unknown) (unknown) Draft (units (unkno wn) date) unknown) (unknown) (no (unknown) (unknown) Family Practice (units (unknown) date) Office Visit unknown) (unknown) (no (unknown) (unknown) [facility] (units ([facility] date[facility] unknown) (unknown) (no (unknown) (unknown) Gallstones (units (unk nown) date) unknown) (unknown) (no (unknown) (unknown) itching, doesn't (units (unknown) date) work unknown) (unknown) (no (unknown) (unknown) (no value) (units (unk nown) date) unknown) (unknown) (no (unknown) (unknown) [id number] (units (unkno wn) date) unknown) (unknown) (no (unknown) (unknown) 04/19/22 (units (unkno wn) date) unknown) (unknown) (no (unknown) (unknown) Accompanied by: (units (unknown) date) Self / Same As unknown) Patient (unknown) (no (unknown) (unknown) Age/Sex: 37 / F (units (unknown) date) Date of Service: unknown) (unknown) (no (unknown) (unknown) Allergies (units (unkn own) date) unknown) (unknown) (no (unknown) (unknown) Also discuss (units (u nknown) date) right lower unknown) quadrant pain x 2 months, was seen @ [facility] normal labs (unknown) (no (unknown) (unknown) Anxiety (units (unkno wn) date) unknown) (unknown) (no (unknown) (unknown) Attending Dr: (units ( unknown) date) Schuyler Doherty MD unknown) (unknown) (no (unknown) (unknown) Brother Age: 28 (units (unknown) date) Autism unknown) (unknown) (no (unknown) (unknown) Chronic low back (units (unknown) date) pain unknown) (unknown) (no (unknown) (unknown) Chronic pelvic (units (unknown) date) pain in female unknown) (unknown) (no (unknown) (unknown) Concerned about (units (unknown) date) lower iron levels, unknown) states she has no motivation or drive to get (unknown) (no (unknown) (unknown) Current on (units (unk nown) date) everything. unknown) (unknown) (no (unknown) (unknown) : 1985 (units (unknown) date) Acct:[id number] unknown) (unknown) (no (unknown) (unknown) Dept at (units (unkno wn) date) . unknown) (unknown) (no (unknown) (unknown) Dermatitis (units (unk nown) date) unknown) (unknown) (no (unknown) (unknown) Documented By: (units (unknown) date) Schuyler Doherty MD unknown) 04/19/22 1032 (unknown) (no (unknown) (unknown) Factor 5 Leiden (units (unknown) date) mutation, unknown) heterozygous (unknown) (no (unknown) (unknown) Family History (units (unknown) date) (Reviewed 03/03/22 unknown) @ 08:13 by Tammi Barrera PA-C) (unknown) (no (unknown) (unknown) Former smoker (units ( unknown) date) unknown) (unknown) (no (unknown) (unknown) Grandfather (units (un known) date) Hypertension unknown) (unknown) (no (unknown) (unknown) Grandmother (units (un known) date) Cancer unknown) (unknown) (no (unknown) (unknown) 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, clean for 12.5 years (unknown) (no (unknown) (unknown) Health Management (units (unknown) date) unknown) (unknown) (no (unknown) (unknown) Health Management (units (unknown) date) reviewed with unknown) patient: Yes (unknown) (no (unknown) (unknown) History of UTI (units (unknown) date) unknown) (unknown) (no (unknown) (unknown) History of drug (units (unknown) date) abuse in remission unknown) (unknown) (no (unknown) (unknown) History of (units (unk nown) date) pneumonia unknown) (unknown) (no (unknown) (unknown) History of (units (unk nown) date) vaginal unknown) hysterectomy (unknown) (no (unknown) (unknown) Insomnia (units (unkno wn) date) unknown) (unknown) (no (unknown) (unknown) Intake (units (unkno wn) date) unknown) (unknown) (no (unknown) (unknown) Intake Note: (units (u nknown) date) unknown) (unknown) (no (unknown) (unknown) Intake performed (units (unknown) date) by: Esme Wood unknown) (unknown) (no (unknown) (unknown) Intake- Clincial (units (unknown) date) Staff unknown) (unknown) (no (unknown) (unknown) Last Menstural (units (unknown) date) Cycle + Details unknown) (unknown) (no (unknown) (unknown) Loc: [facility] (units (unkno wn) date) unknown) (unknown) (no (unknown) (unknown) Lumbar (units (unkno wn) date) spondylosis unknown) (unknown) (no (unknown) (unknown) Medical History (units (unknown) date) (Reviewed 03/03/22 unknown) @ 08:13 by Tammi Barrera PA-C) (unknown) (no (unknown) (unknown) Mother Age: 69 (units (unknown) date) Factor V Leiden unknown) (unknown) (no (unknown) (unknown) NTY 37 yo female (units (unknown) date) presents today to unknown) establish care, c/o increased fatigue, (unknown) (no (unknown) (unknown) Other Menstrual (units (unknown) date) Period: Surgical unknown) Menopause (unknown) (no (unknown) (unknown) PFSH (units (unkno wn) date) unknown) (unknown) (no (unknown) (unknown) Patient: (units (unkno wn) date) Trey Duenas unknown) MR#: [id number] (unknown) (no (unknown) (unknown) Penicillins (units (un known) date) Allergy (Severe, unknown) Verified 05/28/21 09:23) (unknown) (no (unknown) (unknown) 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/23/15) (unknown) (no (unknown) (unknown) Pyelonephritis (units (unknown) date) unknown) (unknown) (no (unknown) (unknown) Reason For Visit (units (unknown) date) unknown) (unknown) (no (unknown) (unknown) Routine (units (unkno wn) date) Papanicolaou smear unknown) (unknown) (no (unknown) (unknown) Signed By: (units (unk nown) date) unknown) (unknown) (no (unknown) (unknown) Sister Age: 40 (units (unknown) date) Factor V Leiden unknown) (unknown) (no (unknown) (unknown) Smoking Status: (units (unknown) date) Former smoker unknown) (unknown) (no (unknown) (unknown) Social History (units (unknown) date) unknown) (unknown) (no (unknown) (unknown) Status post D+C (units (unknown) date) unknown) (unknown) (no (unknown) (unknown) Status post (units (un known) date) tonsillectomy unknown) (unknown) (no (unknown) (unknown) Status post tubal (units (unknown) date) ligation unknown) (unknown) (no (unknown) (unknown) Surgical History (units (unknown) date) (Reviewed 03/03/22 unknown) @ 08:13 by Tammi Barrera PA-C) (unknown) (no (unknown) (unknown) Temporary (units (unkn own) date) weakness of unknown) extremity (unknown) (no (unknown) (unknown) This note may (units ( unknown) date) have been all or unknown) partially generated using voice recognition (unknown) (no (unknown) (unknown) Tingling (2018) (units (unknown) date) unknown) (unknown) (no (unknown) (unknown) Tobacco + (units (unkn own) date) Substance Use unknown) (unknown) (no (unknown) (unknown) Tobacco Status (units (unknown) date) unknown) (unknown) (no (unknown) (unknown) Tobacco: How many (units (unknown) date) years used: 14 unknown) (unknown) (no (unknown) (unknown) Visit Reasons: (units (unknown) date) NTY :having a lot unknown) fatigue/pain *needs all pwk (unknown) (no (unknown) (unknown) alcohol intake: (units (unknown) date) current unknown) (unknown) (no (unknown) (unknown) have occurred. If (units (unknown) date) there are any unknown) questions, please contact the Medical Records (unknown) (no (unknown) (unknown) household (units (unkn own) date) members: children unknown) (unknown) (no (unknown) (unknown) marital status: (units (unknown) date) unknown unknown) (unknown) (no (unknown) (unknown) may occur. (units (unk nown) date) Occasional unknown) wrong-word or 'sound-alike' substitutions may have (unknown) (no (unknown) (unknown) morphine Adverse (units (unknown) date) Reaction (Unknown, unknown) Verified 05/28/21 09:23) (unknown) (no (unknown) (unknown) occupational (units (u nknown) date) status: employed unknown) (unknown) (no (unknown) (unknown) occurred due to (units (unknown) date) the inherent unknown) limitations of voice recognition software. Please (unknown) (no (unknown) (unknown) read the note (units ( unknown) date) carefully and unknown) recognize, using context, where these substitutions (unknown) (no (unknown) (unknown) second hand (units (un known) date) exposure: Yes unknown) (unknown) (no (unknown) (unknown) software. (units (unkn own) date) Although every unknown) effort is made to edit content, sole leveling machine operator errors (unknown) (no (unknown) (unknown) substance use (units ( unknown) date) type: does not use unknown) (unknown) (no (unknown) (unknown) up or participate (units (unknown) date) in activities. unknown) (unknown) (no (unknown) (unknown) would like to (units ( unknown) date) discuss medication unknown) Result panel 2 (unknown) (no (unknown) (unknown) (no value) (units (unk nown) date) unknown) (unknown) (no (unknown) (unknown) (no value) (units (unk nown) date) unknown) (unknown) (no (unknown) (unknown) 04/19/22 (units (unkno wn) date) unknown) (unknown) (no (unknown) (unknown) 10:41 (units (unkno wn) date) unknown) (unknown) (no (unknown) (unknown) ANAPHYLAXIS/HIVES (units (unknown) date) unknown) (unknown) (no (unknown) (unknown) [place], [place] (units ( unknown) date) [id number] unknown) (unknown) (no (unknown) (unknown) Draft (units (unkno wn) date) unknown) (unknown) (no (unknown) (unknown) Family Practice (units (unknown) date) Office Visit unknown) (unknown) (no (unknown) (unknown) [facility] (units (unknown[facility] date[facility] unknown) (unknown) (no (unknown) (unknown) [facility] (units (unk nown) date) unknown) (unknown) (no (unknown) (unknown) itching, doesn't (units (unknown) date) work unknown) (unknown) (no (unknown) (unknown) (no value) (units (unk nown) date) unknown) (unknown) (no (unknown) (unknown) [phone] (units (unkno wn) date) unknown) (unknown) (no (unknown) (unknown) 04/19/22 (units (unkno wn) date) unknown) (unknown) (no (unknown) (unknown) 04/19/22] (units (unkn own) date) unknown) (unknown) (no (unknown) (unknown) Accompanied by: (units (unknown) date) Self / Same As unknown) Patient (unknown) (no (unknown) (unknown) Age/Sex: 37 / F (units (unknown) date) Date of Service: unknown) (unknown) (no (unknown) (unknown) Allergies (units (unkn own) date) unknown) (unknown) (no (unknown) (unknown) Also discuss (units (u nknown) date) right lower unknown) quadrant pain x 2 months, was seen @ [facility] normal labs (unknown) (no (unknown) (unknown) Anxiety (units (unkno wn) date) unknown) (unknown) (no (unknown) (unknown) Attending Dr: (units ( unknown) date) Schuyler Doherty MD unknown) (unknown) (no (unknown) (unknown) BMI 26.4 (units (unkno wn) date) unknown) (unknown) (no (unknown) (unknown) BP 110/90 (units (unkn own) date) unknown) (unknown) (no (unknown) (unknown) Blood Pressure (units (unknown) date) Location Lt unknown) brachial (unknown) (no (unknown) (unknown) Brother Age: 28 (units (unknown) date) Autism unknown) (unknown) (no (unknown) (unknown) Chronic low back (units (unknown) date) pain unknown) (unknown) (no (unknown) (unknown) Chronic pelvic (units (unknown) date) pain in female unknown) (unknown) (no (unknown) (unknown) Concerned about (units (unknown) date) lower iron levels, unknown) states she has no motivation or drive to get (unknown) (no (unknown) (unknown) Current on (units (unk nown) date) everything. unknown) (unknown) (no (unknown) (unknown) : 1985 (units (unknown) date) Acct:[id number] unknown) (unknown) (no (unknown) (unknown) Dept at (units (unkno wn) date) . unknown) (unknown) (no (unknown) (unknown) Dermatitis (units (unk nown) date) unknown) (unknown) (no (unknown) (unknown) Documented By: (units (unknown) date) Schuyler Doherty MD unknown) 04/19/22 1032 (unknown) (no (unknown) (unknown) Factor 5 Leiden (units (unknown) date) mutation, unknown) heterozygous (unknown) (no (unknown) (unknown) Family History (units (unknown) date) (Reviewed 03/03/22 unknown) @ 08:13 by Tammi Barrera PA-C) (unknown) (no (unknown) (unknown) Former smoker (units ( unknown) date) unknown) (unknown) (no (unknown) (unknown) Grandfather (units (un known) date) Hypertension unknown) (unknown) (no (unknown) (unknown) Grandmother (units (un known) date) Cancer unknown) (unknown) (no (unknown) (unknown) 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, clean for 12.5 years (unknown) (no (unknown) (unknown) Health Management (units (unknown) date) unknown) (unknown) (no (unknown) (unknown) Health Management (units (unknown) date) reviewed with unknown) patient: Yes (unknown) (no (unknown) (unknown) Height 5 ft 3 in (units (unknown) date) unknown) (unknown) (no (unknown) (unknown) History of UTI (units (unknown) date) unknown) (unknown) (no (unknown) (unknown) History of drug (units (unknown) date) abuse in remission unknown) (unknown) (no (unknown) (unknown) History of (units (unk nown) date) pneumonia unknown) (unknown) (no (unknown) (unknown) History of (units (unk nown) date) vaginal unknown) hysterectomy (unknown) (no (unknown) (unknown) Insomnia (units (unkno wn) date) unknown) (unknown) (no (unknown) (unknown) Intake (units (unkno wn) date) unknown) (unknown) (no (unknown) (unknown) Intake Note: (units (u nknown) date) unknown) (unknown) (no (unknown) (unknown) Intake performed (units (unknown) date) by: Esme Wood unknown) (unknown) (no (unknown) (unknown) Intake- Clincial (units (unknown) date) Staff unknown) (unknown) (no (unknown) (unknown) Keto BHB 2 tab PO (units (unknown) date) DAILY 06/10/20 unknown) [History Confirmed 04/19/22] (unknown) (no (unknown) (unknown) Keto plus apple (units (unknown) date) cider 3 tab PO unknown) DAILY #100 tabs 05/28/21 [Rx Confirmed 04/19/22] (unknown) (no (unknown) (unknown) Last Menstural (units (unknown) date) Cycle + Details unknown) (unknown) (no (unknown) (unknown) Loc: [facility] (units (unkno wn) date) unknown) (unknown) (no (unknown) (unknown) Lumbar (units (unkno wn) date) spondylosis unknown) (unknown) (no (unknown) (unknown) Medical History (units (unknown) date) (Reviewed 03/03/22 unknown) @ 08:13 by Tammi Barrera PA-C) (unknown) (no (unknown) (unknown) Medications (units (un known) date) unknown) (unknown) (no (unknown) (unknown) Mother Age: 69 (units (unknown) date) Factor V Leiden unknown) (unknown) (no (unknown) (unknown) NTY 37 yo female (units (unknown) date) presents today to unknown) establish care, c/o increased fatigue, (unknown) (no (unknown) (unknown) Other Menstrual (units (unknown) date) Period: Surgical unknown) Menopause (cervix and ovaries still present ) (unknown) (no (unknown) (unknown) Oxygen Delivery (units (unknown) date) Method room air unknown) (unknown) (no (unknown) (unknown) PFSH (units (unkno wn) date) unknown) (unknown) (no (unknown) (unknown) Patient: (units (unkno wn) date) Trey Duenas unknown) MR#: [id number] (unknown) (no (unknown) (unknown) Penicillins (units (un known) date) Allergy (Severe, unknown) Verified 04/19/22 10:40) (unknown) (no (unknown) (unknown) Position Sitting (units (unknown) date) unknown) (unknown) (no (unknown) (unknown) 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/23/15) (unknown) (no (unknown) (unknown) Pulse 71 (units (unkno wn) date) unknown) (unknown) (no (unknown) (unknown) Pulse Oximetry (units (unknown) date) (%) 100 unknown) (unknown) (no (unknown) (unknown) Pulse Source (units (u nknown) date) Monitor unknown) (unknown) (no (unknown) (unknown) Pyelonephritis (units (unknown) date) unknown) (unknown) (no (unknown) (unknown) Reason For Visit (units (unknown) date) unknown) (unknown) (no (unknown) (unknown) Respiration 16 (units (unknown) date) unknown) (unknown) (no (unknown) (unknown) Routine (units (unkno wn) date) Papanicolaou smear unknown) (unknown) (no (unknown) (unknown) Signed By: (units (unk nown) date) unknown) (unknown) (no (unknown) (unknown) Sister Age: 40 (units (unknown) date) Factor V Leiden unknown) (unknown) (no (unknown) (unknown) Smoking Status: (units (unknown) date) Former smoker unknown) (Quit 2012 ) (unknown) (no (unknown) (unknown) Social History (units (unknown) date) unknown) (unknown) (no (unknown) (unknown) Status post D+C (units (unknown) date) unknown) (unknown) (no (unknown) (unknown) Status post (units (un known) date) tonsillectomy unknown) (unknown) (no (unknown) (unknown) Status post tubal (units (unknown) date) ligation unknown) (unknown) (no (unknown) (unknown) Surgical History (units (unknown) date) (Reviewed 03/03/22 unknown) @ 08:13 by Tammi Barrera PA-C) (unknown) (no (unknown) (unknown) Temp 97.3 F L (units ( unknown) date) unknown) (unknown) (no (unknown) (unknown) Temp Source (units (un known) date) Temporal Artery unknown) Scan (unknown) (no (unknown) (unknown) Temporary (units (unkn own) date) weakness of unknown) extremity (unknown) (no (unknown) (unknown) This note may (units ( unknown) date) have been all or unknown) partially generated using voice recognition (unknown) (no (unknown) (unknown) Tingling (2018) (units (unknown) date) unknown) (unknown) (no (unknown) (unknown) Tobacco + (units (unkn own) date) Substance Use unknown) (unknown) (no (unknown) (unknown) Tobacco Status (units (unknown) date) unknown) (unknown) (no (unknown) (unknown) Tobacco: How many (units (unknown) date) years used: 15 unknown) (unknown) (no (unknown) (unknown) Visit Reasons: (units (unknown) date) NTY :having a lot unknown) fatigue/pain *needs all pwk (unknown) (no (unknown) (unknown) Vitals (units (unkno wn) date) unknown) (unknown) (no (unknown) (unknown) Weight 149 lb 2 (units (unknown) date) oz unknown) (unknown) (no (unknown) (unknown) [History (units (unkno wn) date) Confirmed unknown) 04/19/22] (unknown) (no (unknown) (unknown) acetaminophen 325 (units (unknown) date) mg tablet unknown) (Tylenol) 325 mg PO PRN PRN Pain, Mild 08/07/18 (unknown) (no (unknown) (unknown) alcohol intake: (units (unknown) date) current (1-2 unknown) drinks per day ) (unknown) (no (unknown) (unknown) and imaging (units (un known) date) unknown) (unknown) (no (unknown) (unknown) have occurred. If (units (unknown) date) there are any unknown) questions, please contact the Medical Records (unknown) (no (unknown) (unknown) household (units (unkn own) date) members: children unknown) (unknown) (no (unknown) (unknown) ibuprofen 600 mg (units (unknown) date) tablet 600 mg PO unknown) Q6H PRN pain #30 tabs 06/27/20 [Rx Confirmed (unknown) (no (unknown) (unknown) marital status: (units (unknown) date) unknown unknown) (unknown) (no (unknown) (unknown) may occur. (units (unk nown) date) Occasional unknown) wrong-word or 'sound-alike' substitutions may have (unknown) (no (unknown) (unknown) methamphetamine (units (unknown) date) (Quit 2008, 6.5 unknown) years ) (unknown) (no (unknown) (unknown) morphine Adverse (units (unknown) date) Reaction (Mild, unknown) Verified 04/19/22 10:40) (unknown) (no (unknown) (unknown) occupational (units (u nknown) date) status: employed unknown) (unknown) (no (unknown) (unknown) occurred due to (units (unknown) date) the inherent unknown) limitations of voice recognition software. Please (unknown) (no (unknown) (unknown) quit status: has (units (unknown) date) quit before unknown) (unknown) (no (unknown) (unknown) read the note (units ( unknown) date) carefully and unknown) recognize, using context, where these substitutions (unknown) (no (unknown) (unknown) second hand (units (un known) date) exposure: Yes unknown) (unknown) (no (unknown) (unknown) sertraline 50 mg (units (unknown) date) tablet 50 mg PO unknown) DAILY #90 tabs 05/28/21 [Rx Confirmed 04/19/22] (unknown) (no (unknown) (unknown) software. (units (unkn own) date) Although every unknown) effort is made to edit content, sole leveling machine operator errors (unknown) (no (unknown) (unknown) 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 ) and (unknown) (no (unknown) (unknown) up or participate (units (unknown) date) in activities. unknown) (unknown) (no (unknown) (unknown) would like to (units ( unknown) date) discuss medication unknown) Result panel 3 (unknown) (no (unknown) (unknown) (no value) (units (unk nown) date) unknown) (unknown) (no (unknown) (unknown) Orders: (units (unkno wn) date) unknown) (unknown) (no (unknown) (unknown) (no value) (units (unk nown) date) unknown) (unknown) (no (unknown) (unknown) 04/19/22 (units (unkno wn) date) unknown) (unknown) (no (unknown) (unknown) 10:41 (units (unkno wn) date) unknown) (unknown) (no (unknown) (unknown) ANAPHYLAXIS/HIVES (units (unknown) date) unknown) (unknown) (no (unknown) (unknown) [place], [place] (units ( unknown) date) [id number] unknown) (unknown) (no (unknown) (unknown) Draft (units (unkno wn) date) unknown) (unknown) (no (unknown) (unknown) Family Practice (units (unknown) date) Office Visit unknown) (unknown) (no (unknown) (unknown) [facility] (units (unknown[facility] date[facility] unknown) (unknown) (no (unknown) (unknown) [facility] (units (unk nown) date) unknown) (unknown) (no (unknown) (unknown) itching, doesn't (units (unknown) date) work unknown) (unknown) (no (unknown) (unknown) (no value) (units (unk nown) date) unknown) (unknown) (no (unknown) (unknown) Lungs clear (units (un known) date) bilaterally. unknown) Abdomen soft and nondistended with slight tenderness (unknown) (no (unknown) (unknown) Patient declares (units (unknown) date) that it is on and unknown) off and may last for a few minutes at a time (unknown) (no (unknown) (unknown) - Encounter for (units (unknown) date) screening for unknown) other suspected endocrine disorder (unknown) (no (unknown) (unknown) - Unspecified (units (u nknown) date) abdominal pain, unknown) R53.83 - Other fatigue, R74.8 - Abnormal levels of (unknown) (no (unknown) (unknown) [id number] (units (unkno wn) date) unknown) (unknown) (no (unknown) (unknown) 04/19/22 (units (unkno wn) date) unknown) (unknown) (no (unknown) (unknown) 04/19/22] (units (unkn own) date) unknown) (unknown) (no (unknown) (unknown) 29-year-old female (units (unknown) date) with history of unknown) right groin pain over the last several weeks. (unknown) (no (unknown) (unknown) Accompanied by: (units (unknown) date) Self / Same As unknown) Patient (unknown) (no (unknown) (unknown) Age/Sex: 37 / F (units (unknown) date) Date of Service: unknown) (unknown) (no (unknown) (unknown) Alert, jovial, (units (unknown) date) good eye contact, unknown) appropriate, comfortable work of breathing. (unknown) (no (unknown) (unknown) Allergies (units (unkn own) date) unknown) (unknown) (no (unknown) (unknown) Also discuss (units (u nknown) date) right lower unknown) quadrant pain x 2 months, was seen @ [facility] normal labs (unknown) (no (unknown) (unknown) Anxiety (units (unkno wn) date) unknown) (unknown) (no (unknown) (unknown) Assessment + Plan (units (unknown) date) unknown) (unknown) (no (unknown) (unknown) Attending Dr: (units ( unknown) date) Schuyler Doherty MD unknown) (unknown) (no (unknown) (unknown) Attention and (units ( unknown) date) concentration unknown) deficit (unknown) (no (unknown) (unknown) BMI 26.4 (units (unkn own) date) unknown) (unknown) (no (unknown) (unknown) BP 110/90 (units (unkn own) date) unknown) (unknown) (no (unknown) (unknown) Blood Pressure (units (unknown) date) Location Lt unknown) brachial (unknown) (no (unknown) (unknown) Brother Age: 28 (units (unknown) date) Autism unknown) (unknown) (no (unknown) (unknown) CBC, lipase, (units (u nknown) date) urinalysis. Might unknown) also check TSH if not done recently and leaning (unknown) (no (unknown) (unknown) CT kidney ureter (units (unknown) date) bladder (KUB) unknown) Today R10.30 - Lower abdominal pain, unspecified, (unknown) (no (unknown) (unknown) Chief Complaint (units (unknown) date) unknown) (unknown) (no (unknown) (unknown) Chief Complaint: (units (unknown) date) Chronic right unknown) groin pain (unknown) (no (unknown) (unknown) Chronic low back (units (unknown) date) pain unknown) (unknown) (no (unknown) (unknown) Chronic pelvic (units (unknown) date) pain in female unknown) (unknown) (no (unknown) (unknown) Chronic right (units ( unknown) date) inguinal pain. unknown) Episodic and questionable colic in nature. (unknown) (no (unknown) (unknown) Complete Blood (units (unknown) date) Count AUTO DIFF unknown) Today F41.9 - Anxiety disorder, unspecified, (unknown) (no (unknown) (unknown) Comprehensive (units (u nknown) date) Metabolic Panel unknown) Today F41.9 - Anxiety disorder, unspecified, R10.9 (unknown) (no (unknown) (unknown) Concerned about (units (unknown) date) lower iron levels, unknown) states she has no motivation or drive to get (unknown) (no (unknown) (unknown) Current on (units (unk nown) date) everything. unknown) (unknown) (no (unknown) (unknown) : 1985 (units (unknown) date) Acct:[id number] unknown) (unknown) (no (unknown) (unknown) Dept at (units (unkno wn) date) . unknown) (unknown) (no (unknown) (unknown) Dermatitis (units (unk nown) date) unknown) (unknown) (no (unknown) (unknown) Details: (units (unkno wn) date) unknown) (unknown) (no (unknown) (unknown) Documented By: (units (unknown) date) Schuyler Doherty MD unknown) 04/19/22 1032 (unknown) (no (unknown) (unknown) Exam (units (unkno wn) date) unknown) (unknown) (no (unknown) (unknown) Exam Narrative (units (unknown) date) unknown) (unknown) (no (unknown) (unknown) Exam Narrative: (units (unknown) date) unknown) (unknown) (no (unknown) (unknown) Eyes anicteric (units (unknown) date) unclear. Neck unknown) supple with normal thyroid and no obvious (unknown) (no (unknown) (unknown) Factor 5 Leiden (units (unknown) date) mutation, unknown) heterozygous (unknown) (no (unknown) (unknown) Family History (units (unknown) date) (Reviewed 03/03/22 unknown) @ 08:13 by Tammi Barrera PA-C) (unknown) (no (unknown) (unknown) Former smoker (units ( unknown) date) unknown) (unknown) (no (unknown) (unknown) Grandfather (units (un known) date) Hypertension unknown) (unknown) (no (unknown) (unknown) Grandmother (units (un known) date) Cancer unknown) (unknown) (no (unknown) (unknown) HPI (units (unkno wn) date) unknown) (unknown) (no (unknown) (unknown) 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, clean for 12.5 years (unknown) (no (unknown) (unknown) Health Management (units (unknown) date) unknown) (unknown) (no (unknown) (unknown) Health Management (units (unknown) date) reviewed with unknown) patient: Yes (unknown) (no (unknown) (unknown) Height 5 ft 3 in (units (unknown) date) unknown) (unknown) (no (unknown) (unknown) History of UTI (units (unknown) date) unknown) (unknown) (no (unknown) (unknown) History of drug (units (unknown) date) abuse in remission unknown) (unknown) (no (unknown) (unknown) History of (units (unk nown) date) pneumonia unknown) (unknown) (no (unknown) (unknown) History of (units (unk nown) date) vaginal unknown) hysterectomy (unknown) (no (unknown) (unknown) Insomnia (units (unkno wn) date) unknown) (unknown) (no (unknown) (unknown) Intake (units (unkno wn) date) unknown) (unknown) (no (unknown) (unknown) Intake Note: (units (u nknown) date) unknown) (unknown) (no (unknown) (unknown) Intake performed (units (unknown) date) by: Esme Wood unknown) (unknown) (no (unknown) (unknown) Intake- Clincial (units (unknown) date) Staff unknown) (unknown) (no (unknown) (unknown) Keto BHB 2 tab PO (units (unknown) date) DAILY 06/10/20 unknown) [History Confirmed 04/19/22] (unknown) (no (unknown) (unknown) Keto plus apple (units (unknown) date) cider 3 tab PO unknown) DAILY #100 tabs 05/28/21 [Rx Confirmed 04/19/22] (unknown) (no (unknown) (unknown) Last Menstural (units (unknown) date) Cycle + Details unknown) (unknown) (no (unknown) (unknown) Lipase Today (units (u nknown) date) F41.9 - Anxiety unknown) disorder, unspecified, R10.9 - Unspecified (unknown) (no (unknown) (unknown) Loc: [facility] (units (unkno wn) date) unknown) (unknown) (no (unknown) (unknown) Lumbar (units (unkno wn) date) spondylosis unknown) (unknown) (no (unknown) (unknown) Medical History (units (unknown) date) (Reviewed 03/03/22 unknown) @ 08:13 by Tammi Barrera PA-C) (unknown) (no (unknown) (unknown) Medications (units (un known) date) unknown) (unknown) (no (unknown) (unknown) Mother Age: 69 (units (unknown) date) Factor V Leiden unknown) (unknown) (no (unknown) (unknown) [facility] (units (unknown) date) Clinic with plans unknown) for a 2nd presumptive TYLER in the future and (unknown) (no (unknown) (unknown) NTY 37 yo female (units (unknown) date) presents today to unknown) establish care, c/o increased fatigue, (unknown) (no (unknown) (unknown) Orders (units (unkno wn) date) unknown) (unknown) (no (unknown) (unknown) Other Menstrual (units (unknown) date) Period: Surgical unknown) Menopause (cervix and ovaries still present ) (unknown) (no (unknown) (unknown) Oxygen Delivery (units (unknown) date) Method room air unknown) (unknown) (no (unknown) (unknown) PFSH (units (unkno wn) date) unknown) (unknown) (no (unknown) (unknown) Patient declares (units (unknown) date) no fever, unknown) hematuria, and GI symptoms of nausea, vomiting, (unknown) (no (unknown) (unknown) Patient: (units (unkno wn) date) HenriqueTrey L unknown) MR#: [id number] (unknown) (no (unknown) (unknown) Penicillins (units (un known) date) Allergy (Severe, unknown) Verified 04/19/22 10:40) (unknown) (no (unknown) (unknown) Plan (units (unkno wn) date) unknown) (unknown) (no (unknown) (unknown) Position Sitting (units (unknown) date) unknown) (unknown) (no (unknown) (unknown) 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/23/15) (unknown) (no (unknown) (unknown) Pulse 71 (units (unkno wn) date) unknown) (unknown) (no (unknown) (unknown) Pulse Oximetry (units (unknown) date) (%) 100 unknown) (unknown) (no (unknown) (unknown) Pulse Source (units (u nknown) date) Monitor unknown) (unknown) (no (unknown) (unknown) Pyelonephritis (units (unknown) date) unknown) (unknown) (no (unknown) (unknown) Question of renal (units (unknown) date) colic previously. unknown) Ultrasonography inconclusive with left (unknown) (no (unknown) (unknown) R10.9 - (units (unkno wn) date) Unspecified unknown) abdominal pain, R53.83 - Other fatigue, R74.8 - Abnormal (unknown) (no (unknown) (unknown) R31.9 - (units (unkno wn) date) Hematuria, unknown) unspecified (unknown) (no (unknown) (unknown) Reason For Visit (units (unknown) date) unknown) (unknown) (no (unknown) (unknown) Referral (units (unkno wn) date) Neuropsychology unknown) F41.9 - Anxiety disorder, unspecified, R41.840 - (unknown) (no (unknown) (unknown) Referrals (units (unkn own) date) unknown) (unknown) (no (unknown) (unknown) Respiration 16 (units (unknown) date) unknown) (unknown) (no (unknown) (unknown) Routine (units (unkno wn) date) Papanicolaou smear unknown) (unknown) (no (unknown) (unknown) She declares that (units (unknown) date) she is anxious yes unknown) but that she is not depressed. She denies (unknown) (no (unknown) (unknown) Signed By: (units (unk nown) date) unknown) (unknown) (no (unknown) (unknown) Sister Age: 40 (units (unknown) date) Factor V Leiden unknown) (unknown) (no (unknown) (unknown) Smoking Status: (units (unknown) date) Former smoker unknown) (Quit 2012 ) (unknown) (no (unknown) (unknown) Social History (units (unknown) date) unknown) (unknown) (no (unknown) (unknown) Status post D+C (units (unknown) date) unknown) (unknown) (no (unknown) (unknown) Status post (units (un known) date) tonsillectomy unknown) (unknown) (no (unknown) (unknown) Status post tubal (units (unknown) date) ligation unknown) (unknown) (no (unknown) (unknown) Surgical History (units (unknown) date) (Reviewed 03/03/22 unknown) @ 08:13 by Tammi Barrera PA-C) (unknown) (no (unknown) (unknown) TSH w/ Reflex to (units (unknown) date) FT4 Today F41.9 - unknown) Anxiety disorder, unspecified, R10.9 - (unknown) (no (unknown) (unknown) Temp 97.3 F L (units ( unknown) date) unknown) (unknown) (no (unknown) (unknown) Temp Source (units (un known) date) Temporal Artery unknown) Scan (unknown) (no (unknown) (unknown) Temporary (units (unkn own) date) weakness of unknown) extremity (unknown) (no (unknown) (unknown) This note may (units ( unknown) date) have been all or unknown) partially generated using voice recognition (unknown) (no (unknown) (unknown) Tingling (2018) (units (unknown) date) unknown) (unknown) (no (unknown) (unknown) Tobacco + (units (unkn own) date) Substance Use unknown) (unknown) (no (unknown) (unknown) Tobacco Status (units (unknown) date) unknown) (unknown) (no (unknown) (unknown) Tobacco: How many (units (unknown) date) years used: 15 unknown) (unknown) (no (unknown) (unknown) Unspecified (units (un known) date) abdominal pain, unknown) R53.83 - Other fatigue, R74.8 - Abnormal levels of (unknown) (no (unknown) (unknown) Urinalysis and (units (unknown) date) Microscopic Today unknown) R31.9 - Hematuria, unspecified (unknown) (no (unknown) (unknown) Visit Reasons: (units (unknown) date) NTY :having a lot unknown) fatigue/pain *needs all pwk (unknown) (no (unknown) (unknown) Vitals (units (unkno wn) date) unknown) (unknown) (no (unknown) (unknown) Weight 149 lb 2 (units (unknown) date) oz unknown) (unknown) (no (unknown) (unknown) When discussing (units (unknown) date) her mood, she unknown) declares that her motivation is off and that she (unknown) (no (unknown) (unknown) [History (units (unkno wn) date) Confirmed unknown) 04/19/22] (unknown) (no (unknown) (unknown) abdominal and (units ( unknown) date) pelvic standpoint unknown) other than her uterus and her fallopian tubes. (unknown) (no (unknown) (unknown) abdominal pain, (units (unknown) date) R53.83 - Other unknown) fatigue, R74.8 - Abnormal levels of other serum (unknown) (no (unknown) (unknown) acetaminophen 325 (units (unknown) date) mg tablet unknown) (Tylenol) 325 mg PO PRN PRN Pain, Mild 08/07/18 (unknown) (no (unknown) (unknown) alcohol intake: (units (unknown) date) current (1-2 unknown) drinks per day ) (unknown) (no (unknown) (unknown) and imaging (units (un known) date) unknown) (unknown) (no (unknown) (unknown) assertion. Patient (units (unknown) date) with diagnosis of unknown) manic depression per her report. Of note, (unknown) (no (unknown) (unknown) before a decision (units (unknown) date) made. Also, unknown) patient declares that she is being followed by (unknown) (no (unknown) (unknown) being on (units (unkno wn) date) sertraline at the unknown) present time with her stopping it given this (unknown) (no (unknown) (unknown) broccoli and (units (u nknown) date) ultrasound was unknown) performed as a result of that visit revealed post (unknown) (no (unknown) (unknown) consistent with (units (unknown) date) anxiety and unknown) depression, and I think a restart tune SSRIs in (unknown) (no (unknown) (unknown) diarrhea, (units (unkno wn) date) constipation, or unknown) rectal bleeding. Patient had 1 episode of a greenish (unknown) (no (unknown) (unknown) discharge for 1 (units (unknown) date) day over week back unknown) without recurrence. Patient so Tammi (unknown) (no (unknown) (unknown) disorder (units (unkno wn) date) unknown) (unknown) (no (unknown) (unknown) disorders, Z13.29 (units (unknown) date) - Encounter for unknown) screening for other suspected endocrine (unknown) (no (unknown) (unknown) endocrine (units (unkn own) date) disorder unknown) (unknown) (no (unknown) (unknown) enzymes, Z13.228 - (units (unknown) date) Encounter for unknown) screening for other metabolic disorders, Z13.29 (unknown) (no (unknown) (unknown) gauge for effect. (units (unknown) date) unknown) (unknown) (no (unknown) (unknown) have occurred. If (units (unknown) date) there are any unknown) questions, please contact the Medical Records (unknown) (no (unknown) (unknown) household (units (unkn own) date) members: children unknown) (unknown) (no (unknown) (unknown) hysterectomy and (units (unknown) date) no clear unknown) precipitant for her inguinal pain and with the left (unknown) (no (unknown) (unknown) ibuprofen 600 mg (units (unknown) date) tablet 600 mg PO unknown) Q6H PRN pain #30 tabs 06/27/20 [Rx Confirmed (unknown) (no (unknown) (unknown) in the right (units (u nknown) date) lower quadrant and unknown) less so in the suprapubic area without obvious (unknown) (no (unknown) (unknown) is more emotional (units (unknown) date) than she has been unknown) in the past when watching certain movies. (unknown) (no (unknown) (unknown) levels of other (units (unknown) date) serum enzymes, unknown) Z13.228 - Encounter for screening for other (unknown) (no (unknown) (unknown) lymphadenopathy or (units (unknown) date) Mass. Heart unknown) regular rhythm without obvious murmur or gallop. (unknown) (no (unknown) (unknown) make an educated (units (unknown) date) decision in regard unknown) to such. Aspects of her symptomatology or (unknown) (no (unknown) (unknown) marital status: (units (unknown) date) unknown unknown) (unknown) (no (unknown) (unknown) may occur. (units (unk nown) date) Occasional unknown) wrong-word or 'sound-alike' substitutions may have (unknown) (no (unknown) (unknown) metabolic (units (unkn own) date) disorders, Z13.29 unknown) - Encounter for screening for other suspected (unknown) (no (unknown) (unknown) methamphetamine (units (unknown) date) (Quit 2008, 6.5 unknown) years ) (unknown) (no (unknown) (unknown) methamphetamine (units (unknown) date) abuse, would go unknown) down the path a formal neuropsych testing to (unknown) (no (unknown) (unknown) morphine Adverse (units (unknown) date) Reaction (Mild, unknown) Verified 04/19/22 10:40) (unknown) (no (unknown) (unknown) occupational (units (u nknown) date) status: employed unknown) (unknown) (no (unknown) (unknown) occurred due to (units (unknown) date) the inherent unknown) limitations of voice recognition software. Please (unknown) (no (unknown) (unknown) of pancreatitis (units (unknown) date) or epigastric unknown) pain, nausea, etc. the might be reflective of (unknown) (no (unknown) (unknown) order, but (units (unk nown) date) patient hesitant. unknown) Most important than for us to have formal testing (unknown) (no (unknown) (unknown) other serum (units (un known) date) enzymes, Z13.228 - unknown) Encounter for screening for other metabolic (unknown) (no (unknown) (unknown) ovarian not seen (units (unknown) date) but presumed unknown) present. Probably a good idea to recheck CMP, (unknown) (no (unknown) (unknown) ovary not seen. (units (unknown) date) Patient declares unknown) that she has everything intact from an (unknown) (no (unknown) (unknown) patient with a (units (unknown) date) history of unknown) elevated lipase on last labs without formal diagnosis (unknown) (no (unknown) (unknown) peripheral edema. (units (unknown) date) unknown) (unknown) (no (unknown) (unknown) previously and or (units (unknown) date) presently might be unknown) related to it and CT scan may not be (unknown) (no (unknown) (unknown) quit status: has (units (unknown) date) quit before unknown) (unknown) (no (unknown) (unknown) read the note (units ( unknown) date) carefully and unknown) recognize, using context, where these substitutions (unknown) (no (unknown) (unknown) rebound, guarding (units (unknown) date) or mass. No unknown) organomegaly. Radial pulses 2+ and symmetric no (unknown) (no (unknown) (unknown) required. Before (units (unknown) date) starting stimulant unknown) in this patient with past history of (unknown) (no (unknown) (unknown) second hand (units (un known) date) exposure: Yes unknown) (unknown) (no (unknown) (unknown) sertraline 50 mg (units (unknown) date) tablet 50 mg PO unknown) DAILY #90 tabs 05/28/21 [Rx Confirmed 04/19/22] (unknown) (no (unknown) (unknown) software. 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 (units (unkno wn) date) unknown) (unknown) (no (unknown) (unknown) to see if any (units ( unknown) date) obvious renal unknown) pelvic stones on the prospect that any hematuria (unknown) (no (unknown) (unknown) towards CT (units (unk nown) date) abdomen which was unknown) previously discussed. Might start with basic KUB (unknown) (no (unknown) (unknown) up or participate (units (unknown) date) in activities. unknown) (unknown) (no (unknown) (unknown) without an (units (unk nown) date) apparent unknown) precipitant or anything to make it go away other than rest. (unknown) (no (unknown) (unknown) would like to (units ( unknown) date) discuss medication unknown) Result panel 4 (unknown) (no (unknown) (unknown) (no value) (units (unk nown) date) unknown) (unknown) (no (unknown) (unknown) Orders: (units (unkno wn) date) unknown) (unknown) (no (unknown) (unknown) Status: Acute (units ( unknown) date) unknown) (unknown) (no (unknown) (unknown) (no value) (units (unk nown) date) unknown) (unknown) (no (unknown) (unknown) 04/19/22 (units (unkno wn) date) unknown) (unknown) (no (unknown) (unknown) 04/19/22 1306 (units ( unknown) date) unknown) (unknown) (no (unknown) (unknown) 10:41 (units (unkno wn) date) unknown) (unknown) (no (unknown) (unknown) ANAPHYLAXIS/HIVES (units (unknown) date) unknown) (unknown) (no (unknown) (unknown) [place] (units ( unknown) date) [id number] unknown) (unknown) (no (unknown) (unknown) [facility] (units (unknown) date) Office Visit unknown) (unknown) (no (unknown) (unknown) [facility]) (unknown) (no (unknown) (unknown) Gallstones (units (unk nown) date) unknown) (unknown) (no (unknown) (unknown) Signed (units (unkno wn) date) unknown) (unknown) (no (unknown) (unknown) itching, doesn't (units (unknown) date) work unknown) (unknown) (no (unknown) (unknown) (no value) (units (unk nown) date) unknown) (unknown) (no (unknown) (unknown) Lungs clear (units (un known) date) bilaterally. unknown) Abdomen soft and nondistended with slight tenderness (unknown) (no (unknown) (unknown) Patient declares (units (unknown) date) that it is on and unknown) off and may last for a few minutes at a time (unknown) (no (unknown) (unknown) (1) Right (units (unkn own) date) inguinal pain: unknown) (unknown) (no (unknown) (unknown) (2) Anxiety: (units (u nknown) date) unknown) (unknown) (no (unknown) (unknown) - Encounter for (units (unknown) date) screening for unknown) other suspected endocrine disorder (unknown) (no (unknown) (unknown) - Unspecified (units (u nknown) date) abdominal pain, unknown) R53.83 - Other fatigue, R74.8 - Abnormal levels of (unknown) (no (unknown) (unknown) [id number] (units (unkno wn) date) unknown) (unknown) (no (unknown) (unknown) 04/19/22 (units (unkno wn) date) unknown) (unknown) (no (unknown) (unknown) 04/19/22] (units (unkn own) date) unknown) (unknown) (no (unknown) (unknown) 29-year-old female (units (unknown) date) with history of unknown) right groin pain over the last several weeks. (unknown) (no (unknown) (unknown) Accompanied by: (units (unknown) date) Self / Same As unknown) Patient (unknown) (no (unknown) (unknown) Age/Sex: 37 / F (units (unknown) date) Date of Service: unknown) (unknown) (no (unknown) (unknown) Alert, jovial, (units (unknown) date) good eye contact, unknown) appropriate, comfortable work of breathing. (unknown) (no (unknown) (unknown) Allergies (units (unkn own) date) unknown) (unknown) (no (unknown) (unknown) Also discuss (units (u nknown) date) right lower unknown) quadrant pain x 2 months, was seen @ [facility] normal labs (unknown) (no (unknown) (unknown) Anxiety (units (unkno wn) date) unknown) (unknown) (no (unknown) (unknown) Assessment + Plan (units (unknown) date) unknown) (unknown) (no (unknown) (unknown) Attending Dr: (units ( unknown) date) Schuyler Doherty MD unknown) (unknown) (no (unknown) (unknown) Attention and (units ( unknown) date) concentration unknown) deficit (unknown) (no (unknown) (unknown) BMI 26.4 (units (unkno wn) date) unknown) (unknown) (no (unknown) (unknown) BP 110/90 (units (unkn own) date) unknown) (unknown) (no (unknown) (unknown) Blood Pressure (units (unknown) date) Location Lt unknown) brachial (unknown) (no (unknown) (unknown) Brother Age: 28 (units (unknown) date) Autism unknown) (unknown) (no (unknown) (unknown) CT kidney ureter (units (unknown) date) bladder (KUB) unknown) Today R10.30 - Lower abdominal pain, unspecified, (unknown) (no (unknown) (unknown) Chief Complaint (units (unknown) date) unknown) (unknown) (no (unknown) (unknown) Chief Complaint: (units (unknown) date) Chronic right unknown) groin pain (unknown) (no (unknown) (unknown) Chronic low back (units (unknown) date) pain unknown) (unknown) (no (unknown) (unknown) Chronic pelvic (units (unknown) date) pain in female unknown) (unknown) (no (unknown) (unknown) Chronic right (units ( unknown) date) inguinal pain. unknown) Episodic and questionable colicky in nature. (unknown) (no (unknown) (unknown) Complete Blood (units (unknown) date) Count AUTO DIFF unknown) Today F41.9 - Anxiety disorder, unspecified, (unknown) (no (unknown) (unknown) Comprehensive (units (u nknown) date) Metabolic Panel unknown) Today F41.9 - Anxiety disorder, unspecified, R10.9 (unknown) (no (unknown) (unknown) Concerned about (units (unknown) date) lower iron levels, unknown) states she has no motivation or drive to get (unknown) (no (unknown) (unknown) Current on (units (unk nown) date) everything. unknown) (unknown) (no (unknown) (unknown) : 1985 (units (unknown) date) Acct:[id number] unknown) (unknown) (no (unknown) (unknown) Dept at (units (unkno wn) date) . unknown) (unknown) (no (unknown) (unknown) Dermatitis (units (unk nown) date) unknown) (unknown) (no (unknown) (unknown) Details: (units (unkno wn) date) unknown) (unknown) (no (unknown) (unknown) Documented By: (units (unknown) date) Schuyler Doherty MD unknown) 04/19/22 1032 (unknown) (no (unknown) (unknown) Exam (units (unkno wn) date) unknown) (unknown) (no (unknown) (unknown) Exam Narrative (units (unknown) date) unknown) (unknown) (no (unknown) (unknown) Exam Narrative: (units (unknown) date) unknown) (unknown) (no (unknown) (unknown) Eyes anicteric (units (unknown) date) and clear. Neck unknown) supple with normal thyroid and no obvious (unknown) (no (unknown) (unknown) Factor 5 Leiden (units (unknown) date) mutation, unknown) heterozygous (unknown) (no (unknown) (unknown) Family History (units (unknown) date) (Reviewed 03/03/22 unknown) @ 08:13 by Tammi Barrera PA-C) (unknown) (no (unknown) (unknown) Former smoker (units ( unknown) date) unknown) (unknown) (no (unknown) (unknown) Grandfather (units (un known) date) Hypertension unknown) (unknown) (no (unknown) (unknown) Grandmother (units (un known) date) Cancer unknown) (unknown) (no (unknown) (unknown) HPI (units (unkno wn) date) unknown) (unknown) (no (unknown) (unknown) 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, clean for 12.5 years (unknown) (no (unknown) (unknown) Health Management (units (unknown) date) unknown) (unknown) (no (unknown) (unknown) Health Management (units (unknown) date) reviewed with unknown) patient: Yes (unknown) (no (unknown) (unknown) Height 5 ft 3 in (units (unknown) date) unknown) (unknown) (no (unknown) (unknown) History of UTI (units (unknown) date) unknown) (unknown) (no (unknown) (unknown) History of drug (units (unknown) date) abuse in remission unknown) (unknown) (no (unknown) (unknown) History of (units (unk nown) date) pneumonia unknown) (unknown) (no (unknown) (unknown) History of (units (unk nown) date) vaginal unknown) hysterectomy (unknown) (no (unknown) (unknown) Insomnia (units (unkno wn) date) unknown) (unknown) (no (unknown) (unknown) Intake (units (unkno wn) date) unknown) (unknown) (no (unknown) (unknown) Intake Note: (units (u nknown) date) unknown) (unknown) (no (unknown) (unknown) Intake performed (units (unknown) date) by: Esme Wood unknown) (unknown) (no (unknown) (unknown) Intake- Clincial (units (unknown) date) Staff unknown) (unknown) (no (unknown) (unknown) Keto BHB 2 tab PO (units (unknown) date) DAILY 06/10/20 unknown) [History Confirmed 04/19/22] (unknown) (no (unknown) (unknown) Keto plus apple (units (unknown) date) cider 3 tab PO unknown) DAILY #100 tabs 05/28/21 [Rx Confirmed 04/19/22] (unknown) (no (unknown) (unknown) Last Menstural (units (unknown) date) Cycle + Details unknown) (unknown) (no (unknown) (unknown) Lipase Today (units (u nknown) date) F41.9 - Anxiety unknown) disorder, unspecified, R10.9 - Unspecified (unknown) (no (unknown) (unknown) Loc: [facility] (units (unkno wn) date) unknown) (unknown) (no (unknown) (unknown) Lumbar (units (unkno wn) date) spondylosis unknown) (unknown) (no (unknown) (unknown) Medical History (units (unknown) date) (Updated 04/19/22 unknown) @ 13:06 by Schuyler Doherty MD) (unknown) (no (unknown) (unknown) Medications (units (un known) date) unknown) (unknown) (no (unknown) (unknown) Mother Age: 69 (units (unknown) date) Factor V Leiden unknown) (unknown) (no (unknown) (unknown) [facility] (units (unknown) date) Clinic, with plans unknown) for a 2nd presumptive TYLER in the near future (unknown) (no (unknown) (unknown) NTY 37 yo female (units (unknown) date) presents today to unknown) establish care, c/o increased fatigue, (unknown) (no (unknown) (unknown) Orders (units (unkno wn) date) unknown) (unknown) (no (unknown) (unknown) Other Menstrual (units (unknown) date) Period: Surgical unknown) Menopause (cervix and ovaries still present ) (unknown) (no (unknown) (unknown) Oxygen Delivery (units (unknown) date) Method room air unknown) (unknown) (no (unknown) (unknown) PFSH (units (unkno wn) date) unknown) (unknown) (no (unknown) (unknown) Patient declares (units (unknown) date) no fever, unknown) hematuria, GI symptoms of nausea, vomiting, diarrhea, (unknown) (no (unknown) (unknown) Patient: (units (unkno wn) date) Trey Duenas unknown) MR#: [id number] (unknown) (no (unknown) (unknown) Penicillins (units (un known) date) Allergy (Severe, unknown) Verified 04/19/22 10:40) (unknown) (no (unknown) (unknown) Plan (units (unkno wn) date) unknown) (unknown) (no (unknown) (unknown) Position Sitting (units (unknown) date) unknown) (unknown) (no (unknown) (unknown) 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/23/15) (unknown) (no (unknown) (unknown) Pulse 71 (units (unkno wn) date) unknown) (unknown) (no (unknown) (unknown) Pulse Oximetry (units (unknown) date) (%) 100 unknown) (unknown) (no (unknown) (unknown) Pulse Source (units (u nknown) date) Monitor unknown) (unknown) (no (unknown) (unknown) Pyelonephritis (units (unknown) date) unknown) (unknown) (no (unknown) (unknown) Question of renal (units (unknown) date) stone previously. unknown) Ultrasonography inconclusive with left (unknown) (no (unknown) (unknown) R10.9 - (units (unkno wn) date) Unspecified unknown) abdominal pain, R53.83 - Other fatigue, R74.8 - Abnormal (unknown) (no (unknown) (unknown) R31.9 - (units (unkno wn) date) Hematuria, unknown) unspecified (unknown) (no (unknown) (unknown) Reason For Visit (units (unknown) date) unknown) (unknown) (no (unknown) (unknown) Referral (units (unkno wn) date) Neuropsychology unknown) F41.9 - Anxiety disorder, unspecified, R41.840 - (unknown) (no (unknown) (unknown) Referrals (units (unkn own) date) unknown) (unknown) (no (unknown) (unknown) Respiration 16 (units (unknown) date) unknown) (unknown) (no (unknown) (unknown) Right inguinal (units (unknown) date) pain unknown) (unknown) (no (unknown) (unknown) Routine (units (unkno wn) date) Papanicolaou smear unknown) (unknown) (no (unknown) (unknown) Signed By: (units (unk nown) date) <Electronically unknown) signed by Schuyler Doherty MD> (unknown) (no (unknown) (unknown) Sister Age: 40 (units (unknown) date) Factor V Leiden unknown) (unknown) (no (unknown) (unknown) Smoking Status: (units (unknown) date) Former smoker unknown) (Quit 2012 ) (unknown) (no (unknown) (unknown) Social History (units (unknown) date) unknown) (unknown) (no (unknown) (unknown) Status post D+C (units (unknown) date) unknown) (unknown) (no (unknown) (unknown) Status post (units (un known) date) tonsillectomy unknown) (unknown) (no (unknown) (unknown) Status post tubal (units (unknown) date) ligation unknown) (unknown) (no (unknown) (unknown) Surgical History (units (unknown) date) (Reviewed 03/03/22 unknown) @ 08:13 by Tammi Barrera PA-C) (unknown) (no (unknown) (unknown) TSH w/ Reflex to (units (unknown) date) FT4 Today F41.9 - unknown) Anxiety disorder, unspecified, R10.9 - (unknown) (no (unknown) (unknown) Temp 97.3 F L (units ( unknown) date) unknown) (unknown) (no (unknown) (unknown) Temp Source (units (un known) date) Temporal Artery unknown) Scan (unknown) (no (unknown) (unknown) Temporary (units (unkn own) date) weakness of unknown) extremity (unknown) (no (unknown) (unknown) This note may (units ( unknown) date) have been all or unknown) partially generated using voice recognition (unknown) (no (unknown) (unknown) Tingling (2018) (units (unknown) date) unknown) (unknown) (no (unknown) (unknown) Tobacco + (units (unkn own) date) Substance Use unknown) (unknown) (no (unknown) (unknown) Tobacco Status (units (unknown) date) unknown) (unknown) (no (unknown) (unknown) Tobacco: How many (units (unknown) date) years used: 15 unknown) (unknown) (no (unknown) (unknown) Unspecified (units (un known) date) abdominal pain, unknown) R53.83 - Other fatigue, R74.8 - Abnormal levels of (unknown) (no (unknown) (unknown) Urinalysis and (units (unknown) date) Microscopic Today unknown) R31.9 - Hematuria, unspecified (unknown) (no (unknown) (unknown) Visit Reasons: (units (unknown) date) NTY :having a lot unknown) fatigue/pain *needs all pwk (unknown) (no (unknown) (unknown) Vitals (units (unkno wn) date) unknown) (unknown) (no (unknown) (unknown) Weight 149 lb 2 (units (unknown) date) oz unknown) (unknown) (no (unknown) (unknown) [History (units (unkno wn) date) Confirmed unknown) 04/19/22] (unknown) (no (unknown) (unknown) abdominal pain, (units (unknown) date) R53.83 - Other unknown) fatigue, R74.8 - Abnormal levels of other serum (unknown) (no (unknown) (unknown) acetaminophen 325 (units (unknown) date) mg tablet unknown) (Tylenol) 325 mg PO PRN PRN Pain, Mild 08/07/18 (unknown) (no (unknown) (unknown) alcohol intake: (units (unknown) date) current (1-2 unknown) drinks per day ) (unknown) (no (unknown) (unknown) and imaging (units (un known) date) unknown) (unknown) (no (unknown) (unknown) and then to gauge (units (unknown) date) for effect. unknown) (unknown) (no (unknown) (unknown) anxious, but that (units (unknown) date) she is not unknown) depressed. She denies being on sertraline at the (unknown) (no (unknown) (unknown) basic KUB to see (units (unknown) date) if any obvious unknown) renal pelvic stones on the prospect that any (unknown) (no (unknown) (unknown) been in the past (units (unknown) date) when watching unknown) certain movies. She declares that she is (unknown) (no (unknown) (unknown) before a decision (units (unknown) date) made. Also, unknown) patient declares that she is being followed by (unknown) (no (unknown) (unknown) consistent with (units (unknown) date) anxiety and unknown) depression, and I think a restart to an SSRI is in (unknown) (no (unknown) (unknown) constipation, or (units (unknown) date) rectal bleeding. unknown) Patient had 1 episode of a greenish vag (unknown) (no (unknown) (unknown) declares that her (units (unknown) date) motivation is off unknown) and that she is more emotional than she has (unknown) (no (unknown) (unknown) declares that she (units (unknown) date) has everything unknown) intact from an abdominal and pelvic standpoint (unknown) (no (unknown) (unknown) discharge for 1 (units (unknown) date) day over a week unknown) back without recurrence. Patient saw another (unknown) (no (unknown) (unknown) disorder (units (unkno wn) date) unknown) (unknown) (no (unknown) (unknown) disorders, Z13.29 (units (unknown) date) - Encounter for unknown) screening for other suspected endocrine (unknown) (no (unknown) (unknown) elevated lipase (units (unknown) date) on last labs unknown) without formal diagnosis of pancreatitis or (unknown) (no (unknown) (unknown) endocrine (units (unkn own) date) disorder unknown) (unknown) (no (unknown) (unknown) enzymes, Z13.228 - (units (unknown) date) Encounter for unknown) screening for other metabolic disorders, Z13.29 (unknown) (no (unknown) (unknown) epigastric pain, (units (unknown) date) nausea, etc. that unknown) might be reflective of such. (unknown) (no (unknown) (unknown) have occurred. If (units (unknown) date) there are any unknown) questions, please contact the Medical Records (unknown) (no (unknown) (unknown) hematuria (units (unkn own) date) previously and/or unknown) presently might be related to it, and CT scan may (unknown) (no (unknown) (unknown) household (units (unkn own) date) members: children unknown) (unknown) (no (unknown) (unknown) ibuprofen 600 mg (units (unknown) date) tablet 600 mg PO unknown) Q6H PRN pain #30 tabs 06/27/20 [Rx Confirmed (unknown) (no (unknown) (unknown) in the right (units (u nknown) date) lower quadrant and unknown) less so in the suprapubic area without obvious (unknown) (no (unknown) (unknown) levels of other (units (unknown) date) serum enzymes, unknown) Z13.228 - Encounter for screening for other (unknown) (no (unknown) (unknown) lipase, (units (unkno wn) date) urinalysis. Might unknown) also check TSH if not done recently and leaning (unknown) (no (unknown) (unknown) lymphadenopathy or (units (unknown) date) mass. Heart unknown) regular rhythm without obvious murmur or gallop. (unknown) (no (unknown) (unknown) make an educated (units (unknown) date) decision in regard unknown) to such. Aspects of her symptomatology are (unknown) (no (unknown) (unknown) marital status: (units (unknown) date) unknown unknown) (unknown) (no (unknown) (unknown) may occur. (units (unk nown) date) Occasional unknown) wrong-word or 'sound-alike' substitutions may have (unknown) (no (unknown) (unknown) metabolic (units (unkn own) date) disorders, Z13.29 unknown) - Encounter for screening for other suspected (unknown) (no (unknown) (unknown) methamphetamine (units (unknown) date) (Quit 2008, 6.5 unknown) years ) (unknown) (no (unknown) (unknown) methamphetamine (units (unknown) date) abuse, would go unknown) down the path of formal neuropsych testing to (unknown) (no (unknown) (unknown) morphine Adverse (units (unknown) date) Reaction (Mild, unknown) Verified 04/19/22 10:40) (unknown) (no (unknown) (unknown) not be required. (units (unknown) date) Before starting unknown) stimulant in this patient with past history of (unknown) (no (unknown) (unknown) occupational (units (u nknown) date) status: employed unknown) (unknown) (no (unknown) (unknown) occurred due to (units (unknown) date) the inherent unknown) limitations of voice recognition software. Please (unknown) (no (unknown) (unknown) of manic (units (unkno wn) date) depression once unknown) per her report. Of note, patient with a history of (unknown) (no (unknown) (unknown) order, but (units (unk nown) date) patient hesitant. unknown) Most important then for us to have formal testing (unknown) (no (unknown) (unknown) other serum (units (un known) date) enzymes, Z13.228 - unknown) Encounter for screening for other metabolic (unknown) (no (unknown) (unknown) other than her (units (unknown) date) uterus and her unknown) fallopian tubes. When discussing her mood, she (unknown) (no (unknown) (unknown) ovary not seen (units (unknown) date) but presumed unknown) present. Probably a good idea to recheck CMP, CBC, (unknown) (no (unknown) (unknown) peripheral edema. (units (unknown) date) unknown) (unknown) (no (unknown) (unknown) precipitant for (units (unknown) date) her inguinal pain unknown) and with the left ovary not seen. Patient (unknown) (no (unknown) (unknown) present time, with (units (unknown) date) her stopping it unknown) given this assertion. Patient with diagnosis (unknown) (no (unknown) (unknown) provider and (units (u nknown) date) ultrasound was unknown) performed revealing post hysterectomy and no clear (unknown) (no (unknown) (unknown) quit status: has (units (unknown) date) quit before unknown) (unknown) (no (unknown) (unknown) read the note (units ( unknown) date) carefully and unknown) recognize, using context, where these substitutions (unknown) (no (unknown) (unknown) rebound, guarding (units (unknown) date) or mass. No unknown) organomegaly. Radial pulses 2+ and symmetric no (unknown) (no (unknown) (unknown) second hand (units (un known) date) exposure: Yes unknown) (unknown) (no (unknown) (unknown) sertraline 50 mg (units (unknown) date) tablet 50 mg PO unknown) DAILY #90 tabs 05/28/21 [Rx Confirmed 04/19/22] (unknown) (no (unknown) (unknown) software. 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 Might start with (unknown) (no (unknown) (unknown) up or participate (units (unknown) date) in activities. unknown) (unknown) (no (unknown) (unknown) without an (units (unk nown) date) apparent unknown) precipitant or anything to make it go away other than rest. (unknown) (no (unknown) (unknown) would like to (units ( unknown) date) discuss medication unknown) Result panel 5 (unknown) (no date) (unknown) (unknown) 0.7 % (unkn own) (unknown) (no date) (unknown) (unknown) 1.4 % (unkn own) (unknown) (no date) (unknown) (unknown) 100 /uL (unkn own) (unknown) (no date) (unknown) (unknown) 100 /uL (unkn own) (unknown) (no date) (unknown) (unknown) 12.8 % (unkn own) (unknown) (no date) (unknown) (unknown) 14.8 g/dL (unkn own) (unknown) (no date) (unknown) (unknown) 177 X10 3/uL (unkn own) (unknown) (no date) (unknown) (unknown) 30.6 PG (unkn own) (unknown) (no date) (unknown) (unknown) 3200 /uL (unkn own) (unknown) (no date) (unknown) (unknown) 34.1 % (unkn own) (unknown) (no date) (unknown) (unknown) 36.7 % (unkn own) (unknown) (no date) (unknown) (unknown) 4.83 X10 6/uL (unkn own) (unknown) (no date) (unknown) (unknown) 43.3 % (unkn own) (unknown) (no date) (unknown) (unknown) 4800 /uL (unkn own) (unknown) (no date) (unknown) (unknown) 54.2 % (unkn own) (unknown) (no date) (unknown) (unknown) 600 /uL (unkn own) (unknown) (no date) (unknown) (unknown) 7.0 % (unkn own) (unknown) (no date) (unknown) (unknown) 8.8 X10 3/uL (unkn own) (unknown) (no date) (unknown) (unknown) 89.7 fL (unkn own) Result panel 6 (unknown) (no date) (unknown) (unknown) 0.2 E.U./dL (unkn own) (unknown) (no date) (unknown) (unknown) 1+ (units (unkn own) unknown) (unknown) (no date) (unknown) (unknown) 1.015 (units (unkn own) unknown) (unknown) (no date) (unknown) (unknown) 6.0 (units (unkn own) unknown) (unknown) (no date) (unknown) (unknown) CLEAR (units (unkn own) unknown) (unknown) (no date) (unknown) (unknown) NEGATIVE (units (unkn own) unknown) (unknown) (no date) (unknown) (unknown) NEGATIVE g/dL (unkn own) (unknown) (no date) (unknown) (unknown) YELLOW (units (unkn own) unknown) Result panel 7 (unknown) (no date) (unknown) (unknown) >30 /HPF (units (unkn own) unknown) (unknown) (no date) (unknown) (unknown) 0-1/HPF (units (unkn own) unknown) (unknown) (no date) (unknown) (unknown) 0.2 E.U./dL (unkn own) (unknown) (no date) (unknown) (unknown) 1+ (units (unkn own) unknown) (unknown) (no date) (unknown) (unknown) 1.015 (units (unkn own) unknown) (unknown) (no date) (unknown) (unknown) 6.0 (units (unkn own) unknown) (unknown) (no date) (unknown) (unknown) CLEAR (units (unkn own) unknown) (unknown) (no date) (unknown) (unknown) Cult Not (units (unkn own) Indicated unknown) (unknown) (no date) (unknown) (unknown) NEGATIVE (units (unkn own) unknown) (unknown) (no date) (unknown) (unknown) NEGATIVE g/dL (unkn own) (unknown) (no date) (unknown) (unknown) None Seen (units (unk nown) unknown) (unknown) (no date) (unknown) (unknown) None Seen (units (unk nown) unknown) (unknown) (no date) (unknown) (unknown) YELLOW (units (unkn own) unknown) Result panel 8 (unknown) (no date) (unknown) (unknown) > 60 mL/min (unkn own) (unknown) (no date) (unknown) (unknown) 0.5 mg/dL (unkn own) (unknown) (no date) (unknown) (unknown) 0.61 mg/dL (unkn own) (unknown) (no date) (unknown) (unknown) 1.7 (units unknown) (unknown) (unknown) (no date) (unknown) (unknown) 104 mmol/L (unkn own) (unknown) (no date) (unknown) (unknown) 12 IU/L (unkn own) (unknown) (no date) (unknown) (unknown) 138 mmol/L (unkn own) (unknown) (no date) (unknown) (unknown) 14 mg/dL (unkn own) (unknown) (no date) (unknown) (unknown) 2.6 g/dL (unkn own) (unknown) (no date) (unknown) (unknown) 21 IU/L (unkn own) (unknown) (no date) (unknown) (unknown) 23.0 (units unknown) (unknown) (unknown) (no date) (unknown) (unknown) 26 mmol/L (unkn own) (unknown) (no date) (unknown) (unknown) 4.4 g/dL (unkn own) (unknown) (no date) (unknown) (unknown) 4.7 mmol/L (unkn own) (unknown) (no date) (unknown) (unknown) 484 U/L (unkn own) (unknown) (no date) (unknown) (unknown) 51 U/L (unkn own) (unknown) (no date) (unknown) (unknown) 7.0 g/dL (unkn own) (unknown) (no date) (unknown) (unknown) 9.2 mg/dL (unkn own) (unknown) (no date) (unknown) (unknown) 92 mg/dL (unkn own) Result panel 9 (unknown) (no date) (unknown) (unknown) 2.19 uIU/mL (unkn own) Result panel 10 (unknown) (no (unknown) (unknown) (no value) (units (unk nown) date) unknown) (unknown) (no (unknown) (unknown) (no value) (units (unk nown) date) unknown) (unknown) (no (unknown) (unknown) ANAPHYLAXIS/HIVES (units (unknown) date) unknown) (unknown) (no (unknown) (unknown) Alanine (units (unkno wn) date) Aminotransferase unknown) (ALT/SGPT) 12 IU/L (<35) 04/03 (unknown) (no (unknown) (unknown) Albumin 4.4 g/dL (units (unknown) date) (3.5-5.0) 04/23/22 unknown) (unknown) (no (unknown) (unknown) Albumin/Globulin (units (unknown) date) Ratio 1.7 (1.0-2.8) unknown) 04/23/22 (unknown) (no (unknown) (unknown) Alkaline (units (unkno wn) date) Phosphatase 51 U/L unknown) (38-126) 04/23/22 (unknown) (no (unknown) (unknown) [place], [place] (units ( unknown) date) [id number] unknown) (unknown) (no (unknown) (unknown) Aspartate Amino (units (unknown) date) Transf (AST/SGOT) unknown) 21 IU/L (14-36) 04/23/ (unknown) (no (unknown) (unknown) BUN/Creatinine (units (unknown) date) Ratio 23.0 (6-22) H unknown) 04/23/22 (unknown) (no (unknown) (unknown) Basophils (%) (units ( unknown) date) (Auto) 0.7 % (0-2) unknown) 04/19/22 (unknown) (no (unknown) (unknown) Blood Urea (units (unk nown) date) Nitrogen 14 mg/dL unknown) (7-17) 04/23/22 (unknown) (no (unknown) (unknown) Calcium Level 9.2 (units (unknown) date) mg/dL (8.4-10.2) unknown) 04/23/22 (unknown) (no (unknown) (unknown) Carbon Dioxide (units (unknown) date) Level 26 mmol/L unknown) (22-32) 04/23/22 (unknown) (no (unknown) (unknown) Chloride Level 104 (units (unknown) date) mmol/L (98-107) unknown) 04/23/22 (unknown) (no (unknown) (unknown) Creatinine 0.61 (units (unknown) date) mg/dL (0.52-1.04) unknown) 04/23/22 (unknown) (no (unknown) (unknown) Draft (units (unkno wn) date) unknown) (unknown) (no (unknown) (unknown) Eosinophils (%) (units (unknown) date) (Auto) 1.4 % (2-4) unknown) L 04/19/22 (unknown) (no (unknown) (unknown) Estimat Glomerular (units (unknown) date) Filtration Rate > unknown) 60 mL/min (>60) 04/23 (unknown) (no (unknown) (unknown) Family [facility] (units (unknown) date) Office Visit unknown) (unknown) (no (unknown) (unknown) [facility]) (unknown) (no (unknown) (unknown) Gallstones (units (unk nown) date) unknown) (unknown) (no (unknown) (unknown) Globulin 2.6 g/dL (units (unknown) date) (1.7-4.1) 04/23/22 unknown) (unknown) (no (unknown) (unknown) Glucose Level 92 (units (unknown) date) mg/dL (70-100) unknown) 04/23/22 (unknown) (no (unknown) (unknown) Hematocrit 43.3 % (units (unknown) date) (36-46) 04/19/22 unknown) (unknown) (no (unknown) (unknown) Hemoglobin 14.8 (units (unknown) date) g/dL (12.0-16.0) unknown) 04/19/22 (unknown) (no (unknown) (unknown) Lipase 484 U/L (units (unknown) date) (23-300) H 04/23/22 unknown) (unknown) (no (unknown) (unknown) Lymphocytes (%) (units (unknown) date) (Auto) 36.7 % unknown) (25-40) 04/19/22 (unknown) (no (unknown) (unknown) Mean Corpuscular (units (unknown) date) Hemoglobin 30.6 PG unknown) (26-34) 04/19/22 (unknown) (no (unknown) (unknown) Mean Corpuscular (units (unknown) date) Hemoglobin Concent unknown) 34.1 % (30-36) 04/02 (unknown) (no (unknown) (unknown) Mean Corpuscular (units (unknown) date) Volume 89.7 fL unknown) (80-100) 04/19/22 (unknown) (no (unknown) (unknown) Monocytes (%) (units ( unknown) date) (Auto) 7.0 % (3-14) unknown) 04/19/22 (unknown) (no (unknown) (unknown) Neutrophils # (units ( unknown) date) (Auto) 4800 /uL unknown) (8813-4841) 04/19/22 (unknown) (no (unknown) (unknown) Neutrophils (%) (units (unknown) date) (Auto) 54.2 % unknown) (50-75) 04/19/22 (unknown) (no (unknown) (unknown) Potassium Level (units (unknown) date) 4.7 mmol/L unknown) (3.4-5.1) 04/23/22 (unknown) (no (unknown) (unknown) Red Cell (units (unkno wn) date) Distribution Width unknown) 12.8 % (11.6-14.8) 04/19/22 (unknown) (no (unknown) (unknown) Sodium Level 138 (units (unknown) date) mmol/L (137-145) unknown) 04/23/22 (unknown) (no (unknown) (unknown) Thyroid (units (unkno wn) date) Stimulating Hormone unknown) (TSH) 2.19 uIU/mL (0.47-4.68) 0 (unknown) (no (unknown) (unknown) Total Bilirubin (units (unknown) date) 0.5 mg/dL (0.2-1.3) unknown) 04/23/22 (unknown) (no (unknown) (unknown) Total Protein 7.0 (units (unknown) date) g/dL (6.3-8.2) unknown) 04/23/22 (unknown) (no (unknown) (unknown) itching, doesn't (units (unknown) date) work unknown) (unknown) (no (unknown) (unknown) (no value) (units (unk nown) date) unknown) (unknown) (no (unknown) (unknown) (units (unkno wn) date) unknown) (unknown) (no (unknown) (unknown) [id number] (units (unkno wn) date) unknown) (unknown) (no (unknown) (unknown) 04/19/22 (units (unkno wn) date) unknown) (unknown) (no (unknown) (unknown) 11/24 (units (unkno wn) date) unknown) (unknown) (no (unknown) (unknown) (units (unkno wn) date) unknown) (unknown) (no (unknown) (unknown) 04/23/22 (units (unkno wn) date) unknown) (unknown) (no (unknown) (unknown) 05/24 (units (unkno wn) date) unknown) (unknown) (no (unknown) (unknown) Age/Sex: 37 / F (units (unknown) date) Date of Service: unknown) (unknown) (no (unknown) (unknown) Allergies (units (unkn own) date) unknown) (unknown) (no (unknown) (unknown) Anxiety (units (unkno wn) date) unknown) (unknown) (no (unknown) (unknown) Attending Dr: Schuyler (units (unknown) date) Cortez Doherty MD unknown) (unknown) (no (unknown) (unknown) Brother Age: 28 (units (unknown) date) Autism unknown) (unknown) (no (unknown) (unknown) Chronic low back (units (unknown) date) pain unknown) (unknown) (no (unknown) (unknown) Chronic pelvic (units (unknown) date) pain in female unknown) (unknown) (no (unknown) (unknown) [facility] (units (unk nown) date) Results- Last: unknown) (unknown) (no (unknown) (unknown) : 1985 (units (unknown) date) Acct:[id number] unknown) (unknown) (no (unknown) (unknown) Dept at (units (unkno wn) date) . 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, unknown) heterozygous (unknown) (no (unknown) (unknown) Family History (units (unknown) date) (Reviewed 03/03/22 unknown) @ 08:13 by Tammi Barrera PA-C) (unknown) (no (unknown) (unknown) Former smoker (units ( unknown) date) unknown) (unknown) (no (unknown) (unknown) GenericComposite[ (units (unknown) date) Platelet Count 177 unknown) X10^3/uL (150-400) 04/19/22 ] (unknown) (no (unknown) (unknown) GenericComposite[ (units (unknown) date) Red Blood Count unknown) 4.83 X10^6/uL (4.0-5.2) 04/19/22 ] (unknown) (no (unknown) (unknown) GenericComposite[ (units (unknown) date) White Blood Count unknown) 8.8 X10^3/uL (4.5-11.0) 04/19/22 ] (unknown) (no (unknown) (unknown) Grandfather (units (un known) date) Hypertension unknown) (unknown) (no (unknown) (unknown) Grandmother Cancer (units (unknown) date) unknown) (unknown) (no (unknown) (unknown) History of UTI (units (unknown) date) unknown) (unknown) (no (unknown) (unknown) History of drug (units (unknown) date) abuse in remission unknown) (unknown) (no (unknown) (unknown) History of (units (unk nown) date) pneumonia unknown) (unknown) (no (unknown) (unknown) History of vaginal (units (unknown) date) hysterectomy unknown) (unknown) (no (unknown) (unknown) Insomnia (units (unkno wn) date) unknown) (unknown) (no (unknown) (unknown) Intake (units (unkno wn) date) unknown) (unknown) (no (unknown) (unknown) Lab Results (units (un known) date) unknown) (unknown) (no (unknown) (unknown) Last Menstural (units (unknown) date) Cycle + Details unknown) (unknown) (no (unknown) (unknown) Loc: [facility] (units (unkno wn) date) unknown) (unknown) (no (unknown) (unknown) Lumbar spondylosis (units (unknown) date) unknown) (unknown) (no (unknown) (unknown) Medical History (units (unknown) date) (Updated 04/19/22 @ unknown) 13:06 by Schuyler Doherty MD) (unknown) (no (unknown) (unknown) Mother Age: 69 (units (unknown) date) Factor V Leiden unknown) (unknown) (no (unknown) (unknown) Other Menstrual (units (unknown) date) Period: Surgical unknown) Menopause (cervix and ovaries still present ) (unknown) (no (unknown) (unknown) PFSH (units (unkno wn) date) unknown) (unknown) (no (unknown) (unknown) Patient: (units (unkno wn) date) Trey Duneas unknown) MR#: [id number] (unknown) (no (unknown) (unknown) Penicillins (units (un known) date) Allergy (Severe, unknown) Verified 04/19/22 10:40) (unknown) (no (unknown) (unknown) Pulmonary embolism (units (unknown) date) (12/23/15) unknown) (unknown) (no (unknown) (unknown) Pyelonephritis (units (unknown) date) unknown) (unknown) (no (unknown) (unknown) Reason For Visit (units (unknown) date) unknown) (unknown) (no (unknown) (unknown) Right inguinal (units (unknown) date) pain unknown) (unknown) (no (unknown) (unknown) Routine (units (unkno wn) date) Papanicolaou smear unknown) (unknown) (no (unknown) (unknown) Signed By: (units (unk nown) date) unknown) (unknown) (no (unknown) (unknown) Sister Age: 40 (units (unknown) date) Factor V Leiden unknown) (unknown) (no (unknown) (unknown) Smoking Status: (units (unknown) date) Former smoker (Quit unknown) 2012 ) (unknown) (no (unknown) (unknown) Social History (units (unknown) date) unknown) (unknown) (no (unknown) (unknown) Status post D+C (units (unknown) date) unknown) (unknown) (no (unknown) (unknown) Status post (units (un known) date) tonsillectomy unknown) (unknown) (no (unknown) (unknown) Status post tubal (units (unknown) date) ligation unknown) (unknown) (no (unknown) (unknown) Surgical History (units (unknown) date) (Reviewed 03/03/22 unknown) @ 08:13 by Tammi Barrera PA-C) (unknown) (no (unknown) (unknown) Temporary weakness (units (unknown) date) of extremity unknown) (unknown) (no (unknown) (unknown) This note may have (units (unknown) date) been all or unknown) partially generated using voice recognition (unknown) (no (unknown) (unknown) Tingling (2018) (units (unknown) date) unknown) (unknown) (no (unknown) (unknown) Tobacco + (units (unkn own) date) Substance Use unknown) (unknown) (no (unknown) (unknown) Tobacco Status (units (unknown) date) unknown) (unknown) (no (unknown) (unknown) Tobacco: How many (units (unknown) date) years used: 15 unknown) (unknown) (no (unknown) (unknown) Visit Reasons: Lab (units (unknown) date) f/u- unknown) (unknown) (no (unknown) (unknown) alcohol intake: (units (unknown) date) current (1-2 drinks unknown) per day ) (unknown) (no (unknown) (unknown) have occurred. If (units (unknown) date) there are any unknown) questions, please contact the Medical Records (unknown) (no (unknown) (unknown) household members: (units (unknown) date) children unknown) (unknown) (no (unknown) (unknown) marital status: (units (unknown) date) unknown unknown) (unknown) (no (unknown) (unknown) may occur. (units (unk nown) date) Occasional unknown) wrong-word or 'sound-alike' substitutions may have (unknown) (no (unknown) (unknown) methamphetamine (units (unknown) date) (Quit 2008, 6.5 unknown) years ) (unknown) (no (unknown) (unknown) morphine Adverse (units (unknown) date) Reaction (Mild, unknown) Verified 04/19/22 10:40) (unknown) (no (unknown) (unknown) occupational (units (u nknown) date) status: employed unknown) (unknown) (no (unknown) (unknown) occurred due to (units (unknown) date) the inherent unknown) limitations of voice recognition software. Please (unknown) (no (unknown) (unknown) quit status: has (units (unknown) date) quit before unknown) (unknown) (no (unknown) (unknown) read the note (units ( unknown) date) carefully and unknown) recognize, using context, where these substitutions (unknown) (no (unknown) (unknown) second hand (units (un known) date) exposure: Yes unknown) (unknown) (no (unknown) (unknown) software. 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 Vital Signs No information.
[2022-07-15] MEDS ORDERED: HYDROcod/ACET 5/325 Prepack 4 PO STA (22:12)
--- NOTE | 2022-07-15 22:21 | ED Physician Documentation ---
PD HPI UPPER EXT INJURY - Stated complaint Stated Complaint: R HAND INJ - Chief complaint Chief Complaint: Trauma Ext - History obtained from History obtained from: Patient (37-year-old right-handed woman was at work and fell backwards onto her right wrist. Also mildly hurt the right shoulder. 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 FINISHER: None : Chronic bladder infection HEENT: None Psych: Depression Musculoskeletal: None Derm: None - Past Surgical History Past Surgical History: Yes /FURNITURE FINISHER: Tubal ligation, Hysterectomy HEENT: Tonsil/Adenoidectomy - Present Medications Home Medications: Ambulatory Orders Medication Instructions Recorded Confirmed Ondansetron Odt [Zofran] 4 mg TL Q6H PRN #10 tablet 02/02/22 HYDROcod/ACETAM 5/325 [[place] 5/325] 1 - 2 tab PO Q6H PRN #15 tablet 07/15/22 - Allergies Allergies/Adverse Reactions: Allergies Allergy/AdvReac Type Severity Reaction Status Date / Time Penicillins Allergy Hives Verified 07/15/22 20:48 - Social History Does the pt smoke?: No Smoking Status: Never smoker Does the pt drink ETOH?: Yes Does the pt have substance abuse?: No - Immunizations Immunizations are current?: Yes - POLST Patient has POLST: No PD ED PE NORMAL - Vitals Vital signs reviewed: Yes - General General: Alert and oriented X 3, No acute distress - Neck Neck: Supple, no meningeal sign, No bony TTP - Extremities Extremities: Other (Right shoulder is nontender with full range of motion. She is focally tender over the distal radius and scaphoid/snuffbox of the right wrist with no ability to range it due to pain.) - Neuro Neuro: Alert and oriented X 3, Normal speech Results - Vitals Vitals: Vital Signs - 24 hr 07/15/22 20:45 Temperature 36.5 C Heart Rate 84 Respiratory 18 Rate Blood Pressure 134/97 H O2 Saturation 97 Oxygen O2 Source Room air - Rads (name of study) 4v R wrist Radiology: EMP read contemporaneously (NAD) Procedures - Splint (location) RUE Splint applied by: Physician Type of splint: Fiberglass Other: Patient tolerated well, No complications, Neurovascular intact PD MEDICAL DECISION MAKING - ED course ED course: XR neg but exam worrisome for occult frx, ? scaphoid, as such splinted and d/w pt needs ortho f/u, reeval, poss rpt imaging. Departure - Departure Disposition: Home, Self Care Clinical Impression: Sprain of wrist, right Qualifiers: Encounter type: initial encounter Qualified Code(s): S63.501A - Unspecified sprain of right wrist, initial encounter Condition: Good Record reviewed to determine appropriate education?: Yes Instructions: ED Sprain Wrist Follow-Up: Orthopedic Care [Provider Group] - Within 1 week Prescriptions: HYDROcod/ACETAM 5/325 [[place] 5/325] 1 - 2 tab PO Q6H PRN #15 tablet PRN Reason: Pain Comments: As discussed, given the location and severity of your pain I am worried that you may have a occult fracture (meaning in visible on x-ray). As such I am placing in a fiberglass splint which should be kept on and not removed. Keep it dry. Follow-up with the orthopedic office, calling tomorrow for an appointment within the week. Return for new or worsening symptoms. I sent prescription for stronger painkiller to [facility] in [place]. If pain is mild you can take Tylenol and/or ibuprofen. I am prescribing a short course of narcotic pain medication for you. These are potentially dangerous and addictive medications that should be used carefully. These medications may constipate you. Take an exed-mdc-emtgisl stool softener (docusate) twice daily with plenty of water while taking these medications. If you go 24 hours without a bowel movement, take zfxr-nif-comybnu miralax, per package instructions. Do not drink or drive while taking these medications. If you received narcotic or sedating medications while in the emergency department, do not drive for 24 hours. Store this medication in a safe, secure place and out of reach of children. It is a violation of federal law to give or sell this medication to another person or to use in a manner other than prescribed. The ED will not refill narcotic prescriptions, including prescriptions lost or stolen. To dispose of unwanted medications: 1. [facility] at [address] in [place] has a medication drop box. They accept prescription medications (in pill form) Tuesday through Tuesday 9:00 a.m. to 5:00 p.m. 2. The [facility] accepts prescription medications (in pill form only) for disposal year round. Call for more information. 3. Contact the [facility] for the next [facility] sponsored prescription drug collection event. , [phone], or [phone]; Note that many narcotic pain relievers also contain Tylenol/acetaminophen. Please ensure that your total dose of acetaminophen from all sources does not exceed 3 g (3000 mg) per day. Forms: Activity restrictions Discharge Date/Time: 07/15/22 22:36
--- NOTE | 2022-07-15 23:02 | XRAY Report ---
PROCEDURE: Wrist 4 View RT INDICATIONS: Trauma TECHNIQUE: 4 views of the wrist were acquired. COMPARISON: 09/05/2019. FINDINGS: Bones: No fractures or dislocations. No suspicious bony lesions. Scaphoid view: Scaphoid appears intact. Soft tissues: No suspicious soft tissue calcifications. IMPRESSION: 1. No fracture or dislocation. If clinical concern persists for an occult fracture, repeat study maybe performed in 7-10 days. Reviewed by: Parth Arroyo MD on 07/15/2022 11:00 PM PDT Approved by: Parth Arroyo MD on 07/15/2022 11:00 PM PDT Station ID: [id number]
== END 2022-07-15 22:36 | disposition home or self-care (01) ==
LOC: ED 20:39
DX: S63.501A Unspecified sprain of right wrist, initial encounter (principal); M25.511 Pain in right shoulder; W01.0XXA Fall on same level from slipping, tripping and stumbling without subsequent striking against object, initial encounter; Y99.0 Civilian activity done for income or pay
CPT/HCPCS: 1040M; 29125; 73110; 99282; 99283

== ENCOUNTER 2022-07-20 09:58 | Emergency (ER) | payer OTHER, MEDICAID ==
--- OUTSIDE RECORDS SUMMARY | 2022-07-20 10:06 | EXTERNAL MEDICAL SUMMARY RPT | Continuity of Care Document ---
:1985 Author Organization [facility] Address [address] [place] [address] Phone Allergies No information. Encounters No information. Functional Status No information. Immunizations No information. Medications No information. Problems No information. Procedures No information. Results/Labs test date author facility value unit interpret ation Result panel 1 (unknown) (no date) (unknown) (unknown) 0.2 E.U./dL [...] YELLOW (units (unkn own) unknown) Result panel 2 (unknown) (no date) (unknown) (unknown) >30 /HPF [...] YELLOW (units (unkn own) unknown) Result panel 3 (unknown) (no date) (unknown) (unknown) > 60 [...] (unknown) 92 mg/dL (unkn own) Result panel 4 (unknown) (no date) (unknown) (unknown) 2.19 uIU/mL (unkn own) Result panel 5 (unknown) (no (unknown) (unknown) (no value) (units [...] unknown) (38-126) 04/23/22 (unknown) (no (unknown) (unknown) [place], [place] (units ( unknown) date) [id number] unknown) (unknown) (no (unknown) (unknown) Aspartate Amino [...] ( unknown) date) (Auto) 4800 /uL unknown) ([id number]) 04/19/22 (unknown) (no (unknown) (unknown) Neutrophils (%) [...] nown) date) unknown) (unknown) (no (unknown) (unknown) / (units (unkno wn) date) unknown) (unknown) (no (unknown) (unknown) [id number] (units (unkno wn) date) unknown) (unknown) (no [...] (unknown) (unknown) : 1985 (units (unknown) date) Acct:[id number] unknown) (unknown) (no (unknown) (unknown) Dept at [...] effort is unknown) made to edit content, tavern keeper errors (unknown) (no (unknown) (unknown) 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 ) and Result panel 6 (unknown) (no (unknown) (unknown) (no value) (units (unk nown) date) unknown) (unknown) (no (unknown) (unknown) / (units (unkno wn) date) unknown) (unknown) (no (unknown) (unknown) [id number] (units (unkno wn) date) unknown) (unknown) (no (unknown) (unknown) 04/19/22 (units (unkno wn) date) unknown) (unknown) (no (unknown) (unknown) 11/24 (units (unkno wn) date) unknown) (unknown) (no (unknown) (unknown) (units (unkno wn) date) unknown) (unknown) (no (unknown) (unknown) 37-year-old female (units (unknown) date) with history of unknown) factor 5 Leiden mutation, bilateral PE, DVT, (unknown) (no (unknown) (unknown) 04/23/22 (units (unkno wn) date) unknown) (unknown) (no (unknown) (unknown) 05/24 (units (unkno wn) date) unknown) (unknown) (no (unknown) (unknown) ANAPHYLAXIS/HIVES (units (unknown) date) unknown) (unknown) (no (unknown) (unknown) Age/Sex: 37 / F (units (unknown) date) Date of Service: unknown) (unknown) (no (unknown) (unknown) Alanine (units (unkno wn) date) Aminotransferase unknown) (ALT/SGPT) 12 IU/L (<35) 04/03 (unknown) (no (unknown) (unknown) Albumin 4.4 g/dL (units (unknown) date) (3.5-5.0) 04/23/22 unknown) (unknown) (no (unknown) (unknown) Albumin/Globulin (units (unknown) date) Ratio 1.7 (1.0-2.8) unknown) 04/23/22 (unknown) (no (unknown) (unknown) Alkaline (units (unkno wn) date) Phosphatase 51 U/L unknown) (38-126) 04/23/22 (unknown) (no (unknown) (unknown) Allergies (units (unkn own) date) unknown) (unknown) (no (unknown) (unknown) [place], [place] (units ( unknown) date) [id number] unknown) (unknown) (no (unknown) (unknown) Anxiety (units (unkno wn) date) unknown) (unknown) (no (unknown) (unknown) Aspartate Amino (units (unknown) date) Transf (AST/SGOT) unknown) 21 IU/L (14-36) 04/23/ (unknown) (no (unknown) (unknown) Attending Dr: Schuyler (units (unknown) date) Cortez Doherty MD unknown) (unknown) (no (unknown) (unknown) BUN/Creatinine (units (unknown) date) Ratio 23.0 (6-22) H unknown) 04/23/22 (unknown) (no (unknown) (unknown) Basophils (%) (units ( unknown) date) (Auto) 0.7 % (0-2) unknown) 04/19/22 (unknown) (no (unknown) (unknown) Blood Urea (units (unk nown) date) Nitrogen 14 mg/dL unknown) (7-17) 04/23/22 (unknown) (no (unknown) (unknown) Brother Age: 28 (units (unknown) date) Autism unknown) (unknown) (no (unknown) (unknown) Calcium Level 9.2 (units (unknown) date) mg/dL (8.4-10.2) unknown) 04/23/22 (unknown) (no (unknown) (unknown) Carbon Dioxide (units (unknown) date) Level 26 mmol/L unknown) (-) 04/23/22 (unknown) (no (unknown) (unknown) Chief Complaint (units (unknown) date) unknown) (unknown) (no (unknown) (unknown) Chief Complaint: (units (unknown) date) Lab follow-up unknown) (unknown) (no (unknown) (unknown) Chloride Level 104 (units (unknown) date) mmol/L (98-107) unknown) 04/23/22 (unknown) (no (unknown) (unknown) Chronic low back (units (unknown) date) pain unknown) (unknown) (no (unknown) (unknown) Chronic pelvic (units (unknown) date) pain in female unknown) (unknown) (no (unknown) (unknown) Common Lab (units (unk nown) date) Results- Last: unknown) (unknown) (no (unknown) (unknown) Creatinine 0.61 (units (unknown) date) mg/dL (0.52-1.04) unknown) 04/23/22 (unknown) (no (unknown) (unknown) : 1985 (units (unknown) date) Acct:[id number] unknown) (unknown) (no (unknown) (unknown) Dept at (units (unkno wn) date) . unknown) (unknown) (no (unknown) (unknown) Dermatitis (units (unk nown) date) unknown) (unknown) (no (unknown) (unknown) Details: (units (unkno wn) date) unknown) (unknown) (no (unknown) (unknown) Discussed (units (unkno wn) date) laboratories from unknown) mid April 2022 with benign CBC and chemistries except (unknown) (no (unknown) (unknown) Documented By: (units (unknown) date) Schuyler Doherty MD unknown) 05/03/22 1144 (unknown) (no (unknown) (unknown) Draft (units (unkno wn) date) unknown) (unknown) (no (unknown) (unknown) Eosinophils (%) (units (unknown) date) (Auto) 1.4 % (2-4) unknown) L 04/19/22 (unknown) (no (unknown) (unknown) Estimat Glomerular (units (unknown) date) Filtration Rate > unknown) 60 mL/min (>60) 04/23 (unknown) (no (unknown) (unknown) Factor 5 Leiden (units (unknown) date) mutation, unknown) heterozygous (unknown) (no (unknown) (unknown) Family History (units (unknown) date) (Reviewed 03/03/22 unknown) @ 08:13 by Tammi Barrera PA-C) (unknown) (no (unknown) (unknown) Family Practice (units (unknown) date) Office Visit unknown) (unknown) (no (unknown) (unknown) [facility] ([facility] ([facility] unknown) (unknown) (no (unknown) (unknown) Former smoker (units ( unknown) date) unknown) (unknown) (no (unknown) (unknown) Gallstones (units (unk nown) date) unknown) (unknown) (no (unknown) (unknown) Globulin 2.6 g/dL (units (unknown) date) (1.7-4.1) 04/23/22 unknown) (unknown) (no (unknown) (unknown) Glucose Level 92 (units (unknown) date) mg/dL (70-100) unknown) 04/23/22 (unknown) (no (unknown) (unknown) Grandfather (units (un known) date) Hypertension unknown) (unknown) (no (unknown) (unknown) Grandmother Cancer (units (unknown) date) unknown) (unknown) (no (unknown) (unknown) HPI (units (unkno wn) date) unknown) (unknown) (no (unknown) (unknown) Hematocrit 43.3 % (units (unknown) date) (36-46) 04/19/22 unknown) (unknown) (no (unknown) (unknown) Hemoglobin 14.8 (units (unknown) date) g/dL (12.0-16.0) unknown) 04/19/22 (unknown) (no (unknown) (unknown) History of UTI [...] Details unknown) (unknown) (no (unknown) (unknown) Lipase 484 U/L (units (unknown) date) (23-300) H 04/23/22 unknown) (unknown) (no (unknown) (unknown) Loc: [facility] (units (unkno wn) date) unknown) (unknown) (no (unknown) (unknown) Lumbar spondylosis (units (unknown) date) unknown) (unknown) (no (unknown) (unknown) Lymphocytes (%) [...] unknown) (80-100) 04/19/22 (unknown) (no (unknown) (unknown) Medical History (units (unknown) date) (Updated 04/19/22 @ unknown) 13:06 by Schuyler Doherty MD) (unknown) (no (unknown) (unknown) Monocytes (%) (units ( unknown) date) (Auto) 7.0 % (3-14) unknown) 04/19/22 (unknown) (no (unknown) (unknown) Mother Age: 69 (units (unknown) date) Factor V Leiden unknown) (unknown) (no (unknown) (unknown) Neutrophils # (units ( unknown) date) (Auto) 4800 /uL unknown) ([id number]) 04/19/22 (unknown) (no (unknown) (unknown) Neutrophils (%) (units (unknown) date) (Auto) 54.2 % unknown) (50-75) 04/19/22 (unknown) (no (unknown) (unknown) Other Menstrual (units (unknown) date) Period: Surgical unknown) Menopause (cervix and ovaries still present ) (unknown) (no (unknown) (unknown) PFSH (units (unkno wn) date) unknown) (unknown) (no (unknown) (unknown) Patient: (units (unkno wn) date) Trey Duenas unknown) MR#: [id number] (unknown) (no (unknown) (unknown) Penicillins (units (un known) date) Allergy (Severe, unknown) Verified 04/19/22 10:40) (unknown) (no (unknown) (unknown) Platelet Count 177 (units (unknown) date) X103/uL (150-400) unknown) 04/19/22 (unknown) (no (unknown) (unknown) Potassium Level (units (unknown) date) 4.7 mmol/L unknown) (3.4-5.1) 04/23/22 (unknown) (no (unknown) (unknown) Pulmonary embolism (units (unknown) date) (12/23/15) unknown) (unknown) (no (unknown) (unknown) Pyelonephritis (units (unknown) date) unknown) (unknown) (no (unknown) (unknown) Reason For Visit (units (unknown) date) unknown) (unknown) (no (unknown) (unknown) Red Blood Count (units (unknown) date) 4.83 X106/uL unknown) (4.0-5.2) 04/19/22 (unknown) (no (unknown) (unknown) Red Cell (units (unkno wn) date) Distribution Width unknown) 12.8 % (11.6-14.8) 04/19/22 (unknown) (no (unknown) (unknown) Right inguinal (units [...] (unknown) date) unknown) (unknown) (no (unknown) (unknown) Sodium Level 138 (units (unknown) date) mmol/L (137-145) unknown) 04/23/22 (unknown) (no (unknown) (unknown) Status post D+C [...] using voice recognition (unknown) (no (unknown) (unknown) Thyroid (units (unkno wn) date) Stimulating Hormone unknown) (TSH) 2.19 uIU/mL (0.47-4.68) 0 (unknown) (no (unknown) (unknown) Tingling (2018) (units (unknown) date) unknown) (unknown) (no (unknown) (unknown) Tobacco + (units (unkn own) date) Substance Use unknown) (unknown) (no (unknown) (unknown) Tobacco Status (units (unknown) date) unknown) (unknown) (no (unknown) (unknown) Tobacco: How many (units (unknown) date) years used: 15 unknown) (unknown) (no (unknown) (unknown) Total Bilirubin (units (unknown) date) 0.5 mg/dL (0.2-1.3) unknown) 04/23/22 (unknown) (no (unknown) (unknown) Total Protein 7.0 (units (unknown) date) g/dL (6.3-8.2) unknown) 04/23/22 (unknown) (no (unknown) (unknown) Visit Reasons: Lab (units (unknown) date) f/u unknown) (unknown) (no (unknown) (unknown) White Blood Count (units (unknown) date) 8.8 X103/uL unknown) (4.5-11.0) 04/19/22 (unknown) (no (unknown) (unknown) alcohol intake: (units (unknown) date) current (1-2 drinks unknown) per day ) (unknown) (no (unknown) (unknown) chronic low back (units (unknown) date) pain, here to unknown) discuss labs. Feeling generally well of late. (unknown) (no (unknown) (unknown) diarrhea. Not (units ( unknown) date) reporting abdominal unknown) pain. (unknown) (no (unknown) (unknown) for curious (units (un known) date) elevation in lipase unknown) to 484. No report of recurring vomiting or (unknown) (no (unknown) (unknown) have occurred. 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 ) and Result panel 7 (unknown) (no (unknown) (unknown) (no value) (units (unk nown) date) unknown) (unknown) (no (unknown) (unknown) (1) Right inguinal (units (unknown) date) pain: unknown) (unknown) (no (unknown) (unknown) (units (unkno wn) date) unknown) (unknown) (no (unknown) (unknown) [id number] (units (unkno wn) date) unknown) (unknown) (no (unknown) (unknown) 04/19/22 (units (unkno wn) date) unknown) (unknown) (no (unknown) (unknown) 07/17/22 1002 (units ( unknown) date) unknown) (unknown) (no (unknown) (unknown) 11/24 (units (unkno wn) date) unknown) (unknown) (no (unknown) (unknown) (units (unkno wn) date) unknown) (unknown) (no (unknown) (unknown) 37-year-old female (units (unknown) date) with history of unknown) factor 5 Leiden mutation, bilateral PE, DVT, (unknown) (no (unknown) (unknown) 04/23/22 (units (unkno wn) date) unknown) (unknown) (no (unknown) (unknown) 05/24 (units (unkno wn) date) unknown) (unknown) (no (unknown) (unknown) ANAPHYLAXIS/HIVES (units (unknown) date) unknown) (unknown) (no (unknown) (unknown) Age/Sex: 37 / F (units (unknown) date) Date of Service: unknown) (unknown) (no (unknown) (unknown) Alanine (units (unkno wn) date) Aminotransferase unknown) (ALT/SGPT) 12 IU/L (<35) 04/03 (unknown) (no (unknown) (unknown) Albumin 4.4 g/dL (units (unknown) date) (3.5-5.0) 04/23/22 unknown) (unknown) (no (unknown) (unknown) Albumin/Globulin (units (unknown) date) Ratio 1.7 (1.0-2.8) unknown) 04/23/22 (unknown) (no (unknown) (unknown) Alkaline (units (unkno wn) date) Phosphatase 51 U/L unknown) (38-126) 04/23/22 (unknown) (no (unknown) (unknown) Allergies (units (unkn own) date) unknown) (unknown) (no (unknown) (unknown) [place], [place] (units ( unknown) date) [id number] unknown) (unknown) (no (unknown) (unknown) Anxiety (units (unkno wn) date) unknown) (unknown) (no (unknown) (unknown) Aspartate Amino (units (unknown) date) Transf (AST/SGOT) unknown) 21 IU/L (14-36) 04/23/ (unknown) (no (unknown) (unknown) Assessment + Plan (units (unknown) date) unknown) (unknown) (no (unknown) (unknown) Attending Dr: Schuyler (units (unknown) date) Cortez Doherty MD unknown) (unknown) (no (unknown) (unknown) BUN/Creatinine (units (unknown) date) Ratio 23.0 (6-22) H unknown) 04/23/22 (unknown) (no (unknown) (unknown) Basophils (%) (units ( unknown) date) (Auto) 0.7 % (0-2) unknown) 04/19/22 (unknown) (no (unknown) (unknown) Blood Urea (units (unk nown) date) Nitrogen 14 mg/dL unknown) (7-17) 04/23/22 (unknown) (no (unknown) (unknown) Brother Age: 28 (units (unknown) date) Autism unknown) (unknown) (no (unknown) (unknown) Calcium Level 9.2 (units (unknown) date) mg/dL (8.4-10.2) unknown) 04/23/22 (unknown) (no (unknown) (unknown) Carbon Dioxide (units (unknown) date) Level 26 mmol/L unknown) (22-32) 04/23/22 (unknown) (no (unknown) (unknown) Chief Complaint (units (unknown) date) unknown) (unknown) (no (unknown) (unknown) Chief Complaint: (units (unknown) date) Lab follow-up unknown) (unknown) (no (unknown) (unknown) Chloride Level 104 (units (unknown) date) mmol/L (98-107) unknown) 04/23/22 (unknown) (no (unknown) (unknown) Chronic inguinal (units (unknown) date) abdominal pain. unknown) Laboratories benign with exception of elevated (unknown) (no (unknown) (unknown) Chronic low back (units (unknown) date) pain unknown) (unknown) (no (unknown) (unknown) Chronic pelvic (units (unknown) date) pain in female unknown) (unknown) (no (unknown) (unknown) Common Lab (units (unk nown) date) Results- Last: unknown) (unknown) (no (unknown) (unknown) Creatinine 0.61 (units (unknown) date) mg/dL (0.52-1.04) unknown) 04/23/22 (unknown) (no (unknown) (unknown) : 1985 (units (unknown) date) Acct:[id number] unknown) (unknown) (no (unknown) (unknown) Dept at (units (unkno wn) date) . unknown) (unknown) (no (unknown) (unknown) Dermatitis (units (unk nown) date) unknown) (unknown) (no (unknown) (unknown) Details: (units (unkno wn) date) unknown) (unknown) (no (unknown) (unknown) Documented By: (units (unknown) date) Schuyler Doherty MD unknown) 05/03/22 1144 (unknown) (no (unknown) (unknown) Eosinophils (%) (units (unknown) date) (Auto) 1.4 % (2-4) unknown) L 04/19/22 (unknown) (no (unknown) (unknown) Estimat Glomerular (units (unknown) date) Filtration Rate > unknown) 60 mL/min (>60) 04/23 (unknown) (no (unknown) (unknown) Exam Narrative (units (unknown) date) unknown) (unknown) (no (unknown) (unknown) Exam Narrative: (units (unknown) date) unknown) (unknown) (no (unknown) (unknown) Exam (units (unkno wn) date) unknown) (unknown) (no (unknown) (unknown) Factor 5 Leiden (units (unknown) date) mutation, unknown) heterozygous (unknown) (no (unknown) (unknown) Family History (units (unknown) date) (Reviewed 03/03/22 unknown) @ 08:13 by Tammi Barrera PA-C) (unknown) (no (unknown) (unknown) Family Practice (units (unknown) date) Office Visit unknown) (unknown) (no (unknown) (unknown) [facility] (units (unknown) date[facility] unknown) (unknown) (no (unknown) (unknown) Former smoker (units ( unknown) date) unknown) (unknown) (no (unknown) (unknown) Gallstones (units (unk nown) date) unknown) (unknown) (no (unknown) (unknown) Globulin 2.6 g/dL (units (unknown) date) (1.7-4.1) 04/23/22 unknown) (unknown) (no (unknown) (unknown) Glucose Level 92 (units (unknown) date) mg/dL (70-100) unknown) 04/23/22 (unknown) (no (unknown) (unknown) Grandfather (units (un known) date) Hypertension unknown) (unknown) (no (unknown) (unknown) Grandmother Cancer (units (unknown) date) unknown) (unknown) (no (unknown) (unknown) HPI (units (unkno wn) date) unknown) (unknown) (no (unknown) (unknown) Hematocrit 43.3 % (units (unknown) date) (36-46) 04/19/22 unknown) (unknown) (no (unknown) (unknown) Hemoglobin 14.8 (units (unknown) date) g/dL (12.0-16.0) unknown) 04/19/22 (unknown) (no (unknown) (unknown) History of UTI [...] Details unknown) (unknown) (no (unknown) (unknown) Lipase 484 U/L (units (unknown) date) (23-300) H 04/23/22 unknown) (unknown) (no (unknown) (unknown) Loc: [facility] (units (unkno wn) date) unknown) (unknown) (no (unknown) (unknown) Lumbar spondylosis (units (unknown) date) unknown) (unknown) (no (unknown) (unknown) Lymphocytes (%) [...] unknown) (80-100) 04/19/22 (unknown) (no (unknown) (unknown) Medical History (units (unknown) date) (Updated 04/19/22 @ unknown) 13:06 by Schuyler Doherty MD) (unknown) (no (unknown) (unknown) Monocytes (%) (units ( unknown) date) (Auto) 7.0 % (3-14) unknown) 04/19/22 (unknown) (no (unknown) (unknown) Mother Age: 69 (units (unknown) date) Factor V Leiden unknown) (unknown) (no (unknown) (unknown) Neutrophils # (units ( unknown) date) (Auto) 4800 /uL unknown) (1207-7304) 04/19/22 (unknown) (no (unknown) (unknown) Neutrophils (%) (units (unknown) date) (Auto) 54.2 % unknown) (50-75) 04/19/22 (unknown) (no (unknown) (unknown) No examination (units (unknown) date) today with visit unknown) over 10 minutes for laboratory and other study (unknown) (no (unknown) (unknown) Other Menstrual (units (unknown) date) Period: Surgical unknown) Menopause (cervix and ovaries still present ) (unknown) (no (unknown) (unknown) PFSH (units (unkno wn) date) unknown) (unknown) (no (unknown) (unknown) Patient: (units (unkno wn) date) Trey Duenas L unknown) MR#: [id number] (unknown) (no (unknown) (unknown) Penicillins (units (un known) date) Allergy (Severe, unknown) Verified 04/19/22 10:40) (unknown) (no (unknown) (unknown) Plan (units (unkno wn) date) unknown) (unknown) (no (unknown) (unknown) Platelet Count 177 (units (unknown) date) X103/uL (150-400) unknown) 04/19/22 (unknown) (no (unknown) (unknown) Potassium Level (units (unknown) date) 4.7 mmol/L unknown) (3.4-5.1) 04/23/22 (unknown) (no (unknown) (unknown) Pulmonary embolism (units (unknown) date) (12/23/15) unknown) (unknown) (no (unknown) (unknown) Pyelonephritis (units (unknown) date) unknown) (unknown) (no (unknown) (unknown) Reason For Visit (units (unknown) date) unknown) (unknown) (no (unknown) (unknown) Red Blood Count (units (unknown) date) 4.83 X106/uL unknown) (4.0-5.2) 04/19/22 (unknown) (no (unknown) (unknown) Red Cell (units (unkno wn) date) Distribution Width unknown) 12.8 % (11.6-14.8) 04/19/22 (unknown) (no (unknown) (unknown) Right inguinal (units (unknown) date) pain unknown) (unknown) (no (unknown) (unknown) Routine (units (unkno wn) date) Papanicolaou smear unknown) (unknown) (no (unknown) (unknown) Signed By: (units (unk nown) date) <Electronically unknown) signed by Schuyler Doherty MD> (unknown) (no (unknown) (unknown) Signed (units (unkno wn) date) unknown) (unknown) (no (unknown) (unknown) Sister Age: 40 (units (unknown) date) Factor V Leiden unknown) (unknown) (no (unknown) (unknown) Smoking Status: (units (unknown) date) Former smoker (Quit unknown) 2012 ) (unknown) (no (unknown) (unknown) Social History (units (unknown) date) unknown) (unknown) (no (unknown) (unknown) Sodium Level 138 (units (unknown) date) mmol/L (137-145) unknown) 04/23/22 (unknown) (no (unknown) (unknown) Status post D+C (units (unknown) date) unknown) (unknown) (no (unknown) (unknown) Status post (units (un known) date) tonsillectomy unknown) (unknown) (no (unknown) (unknown) Status post tubal (units (unknown) date) ligation unknown) (unknown) (no (unknown) (unknown) Status: Acute (units ( unknown) date) unknown) (unknown) (no (unknown) (unknown) Surgical History (units (unknown) date) (Reviewed 03/03/22 unknown) @ 08:13 by Tammi Barrera PA-C) (unknown) (no (unknown) (unknown) Temporary weakness (units (unknown) date) of extremity unknown) (unknown) (no (unknown) (unknown) This note may have (units (unknown) date) been all or unknown) partially generated using voice recognition (unknown) (no (unknown) (unknown) Thyroid (units (unkno wn) date) Stimulating Hormone unknown) (TSH) 2.19 uIU/mL (0.47-4.68) 0 (unknown) (no (unknown) (unknown) Tingling (2018) (units (unknown) date) unknown) (unknown) (no (unknown) (unknown) Tobacco + (units (unkn own) date) Substance Use unknown) (unknown) (no (unknown) (unknown) Tobacco Status (units (unknown) date) unknown) (unknown) (no (unknown) (unknown) Tobacco: How many (units (unknown) date) years used: 15 unknown) (unknown) (no (unknown) (unknown) Total Bilirubin (units (unknown) date) 0.5 mg/dL (0.2-1.3) unknown) 04/23/22 (unknown) (no (unknown) (unknown) Total Protein 7.0 (units (unknown) date) g/dL (6.3-8.2) unknown) 04/23/22 (unknown) (no (unknown) (unknown) Visit Reasons: Lab (units (unknown) date) f/u unknown) (unknown) (no (unknown) (unknown) White Blood Count (units (unknown) date) 8.8 X103/uL unknown) (4.5-11.0) 04/19/22 (unknown) (no (unknown) (unknown) alcohol intake: (units (unknown) date) current (1-2 drinks unknown) per day ) (unknown) (no (unknown) (unknown) and anxiety and (units (unknown) date) discussed SSRI, but unknown) patient to think about it. No new symptoms (unknown) (no (unknown) (unknown) and previously (units (unknown) date) discussed TYLER unknown) possibility. Also history of depressive symptoms (unknown) (no (unknown) (unknown) chemistries except (units (unknown) date) for curious unknown) elevation in lipase to 484. No report of (unknown) (no (unknown) (unknown) chronic low back (units (unknown) date) pain, here to unknown) discuss labs. Previously seen for chronic right (unknown) (no (unknown) (unknown) discussion along (units (unknown) date) with discussion of unknown) diagnoses and medication review. (unknown) (no (unknown) (unknown) have occurred. If (units (unknown) date) there are any unknown) questions, please contact the Medical Records (unknown) (no (unknown) (unknown) household members: (units (unknown) date) children unknown) (unknown) (no (unknown) (unknown) inguinal pain and (units (unknown) date) discussed obtaining unknown) some basic laboratories and perhaps a CT (unknown) (no (unknown) (unknown) itching, doesn't (units (unknown) date) work unknown) (unknown) (no (unknown) (unknown) lipase. Unclear (units (unknown) date) diagnosis of unknown) pancreatitis. Planning advanced imaging of abdomen (unknown) (no (unknown) (unknown) marital status: (units [...] software. Please (unknown) (no (unknown) (unknown) of late Discussed (units (unknown) date) laboratories from unknown) mid April 2022 with benign CBC and (unknown) (no (unknown) (unknown) quit status: has (units (unknown) date) quit before unknown) (unknown) (no (unknown) (unknown) read the note (units ( unknown) date) carefully and unknown) recognize, using context, where these substitutions (unknown) (no (unknown) (unknown) recommendations (units (unknown) date) after imaging. May unknown) ultimately need GI input. Seek attention if (unknown) (no (unknown) (unknown) recurring vomiting (units (unknown) date) or diarrhea. unknown) (unknown) (no (unknown) (unknown) scan of the (units (un known) date) abdomen to define unknown) anatomy. Patient with history of lower back pain (unknown) (no (unknown) (unknown) second hand (units (un known) date) exposure: Yes unknown) (unknown) (no (unknown) (unknown) software. 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 Unclear whether elevated lipase related (unknown) (no (unknown) (unknown) with assumption (units (unknown) date) imaging will help unknown) elucidate that as well. Further (unknown) (no (unknown) (unknown) worsening (units (unkn own) date) abdominal pain, unknown) vomiting, rectal bleeding, fever. Social History No information. Vital Signs No information.
[2022-07-20 10:08] VITALS: BP 122/93
--- NOTE | 2022-07-20 11:18 | XRAY Report ---
PROCEDURE: Wrist 4 View RT INDICATIONS: Trauma TECHNIQUE: 4 views of the wrist were acquired. COMPARISON: X-ray wrist 07/15/2022 FINDINGS: Bones: There is slight irregularity of the distal radius, seen only on lateral view. No suspicious ninfa ny lesions. Soft tissues: No suspicious soft tissue calcifications. IMPRESSION: Slight irregularity of the distal radius seen only on lateral view. This could be projectional as pos itioning is slightly different when compared to prior exam. Recommend correlation point tenderness. Reviewed by: Pinky Dc MD on 07/20/2022 11:16 AM PDT Approved by: Pinky Dc MD on 07/20/2022 11:16 AM PDT Station ID: [id number]
--- NOTE | 2022-07-20 11:35 | ED Physician Documentation ---
History of Present Illness - Stated complaint Stated Complaint: RT WRIST PX - Chief complaint Chief Complaint: Trauma Ext - Additonal information Additional information: 29-year-old female presents emergency department for reevaluation of right wrist pain. Seen here on the 13th after fall. Clinical suspicion at that time for an occult fracture and she was placed in a thumb spica. She reports that the splint is no longer fitting well and she is having persistent pain Despite Tylenol and ibuprofen. She states Mchenry makes her sick to her stomach. She is requesting oxycodone. 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 She is not able to get in to [facility] orthopedist for 2 to 3 weeks. She is frustrated and upset. She denies paresthesias in the hand. No fevers. No finger swelling. 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: Tubal ligation, Hysterectomy HEENT: Tonsil/Adenoidectomy - Present Medications Home Medications: Ambulatory Orders Medication Instructions Recorded Confirmed Ondansetron Odt [Zofran] 4 mg TL Q6H PRN #10 tablet 02/02/22 HYDROcod/ACETAM 5/325 [Mchenry 5/325] 1 - 2 tab PO Q6H PRN #15 tablet 07/15/22 oxyCODONE [Roxicodone] 5 mg PO DAILY PRN #10 tablet 07/20/22 - Allergies Allergies/Adverse Reactions: Allergies Allergy/AdvReac Type Severity Reaction Status Date / Time morphine Allergy Nausea Verified 07/20/22 10:08 Penicillins Allergy Hives Verified 07/15/22 20:48 - Social History Does the pt smoke?: No Smoking Status: Never smoker Does the pt drink ETOH?: Yes Does the pt have substance abuse?: No - Immunizations Immunizations are current?: Yes - POLST Patient has POLST: No PD ED PE EXPANDED - General General: Alert, No acute distress - Extremities Extremities: Right arm (Right arm is in a thumb spica splint brisk cap refill normal sensation and movement of the fingers. No swelling. Patient does have focal tenderness just below the wrist Below the radial prominence. Mild ecchymosis noted. 2+ radial pulse) Results - Vitals Vitals: Vital Signs - 24 hr 07/20/22 10:03 Temperature 36.3 C L Heart Rate 81 Respiratory 16 Rate Blood Pressure 122/93 H O2 Saturation 97 Oxygen O2 Source Room air - Rads (name of study) right forearm Radiology: Final report received (Slight irregularity of the distal radius seen only on lateral view. This could be projectional as positioning is slightly different when compared to prior exam. Recommend correlation for point tenderness) PD MEDICAL DECISION MAKING - ED course Complexity details: reviewed results, considered differential, d/w patient ED course: 37-year-old female presents emergency department for evaluation of worsening right arm pain. Seen here on the after a fall thought to have likely an occult fracture and placed in a thumb spica splint. Despite the splint Motrin and Tylenol her pain has worsened. She has not tolerated the Mchenry due to vomiting. She is requesting Percocet for analgesia. We did repeat the x-ray imaging and there was 1 view on the lateral that could suggest an occult radial fracture. We did remove the splint on evaluation there is some superficial bruising in this area of the forearm. Patient has no symptoms suggestive of compartment syndrome. She is warm well perfused. She was placed again in a thumb spica splint. She will continue to follow-up with [facility] for further evaluation of What I now believed to be an occult radial fracture. A limited prescription for oxycodone was sent to the [facility]. Otherwise emergent return precautions discussed. This is a [facility] claim. Please see inital ED encounter 07/15/22 Departure - Departure Disposition: 01 Home, Self Care Clinical Impression: Right wrist pain Condition: Stable Record reviewed to determine appropriate education?: Yes Prescriptions: oxyCODONE [Roxicodone] 5 mg PO DAILY PRN #10 tablet PRN Reason: Pain Comments: Shanique harper return to the emergency department today because you have been having worsening pain in your right wrist. You were seen 5 days ago and thought to likely have an occult meaning difficult to see radial fracture. Because there is some bruising on your forearm as well as 1 view on today's x-ray that suggest a subtle fracture we are replacing you in the splint. My hope is that the new splint will be more comfortable for you. I am sending a limited prescription of oxycodone to the pharmacy for you as you do not seem to have tolerated Mchenry. We are not going to be able to refill this moving forward. It is important that you continue to follow-up with your primary care provider for longer-term analgesia until you are able to see orthopedics. Light duty for your job performance continues to apply. Return to the emergency department if you find that your splint is too tight, you have numbness or tingling in your fingers, develop any fevers.
== END 2022-07-20 12:14 | disposition home or self-care (01) ==
LOC: ED 09:58
DX: M25.531 Pain in right wrist (principal)
CPT/HCPCS: 99283

== ENCOUNTER 2022-07-27 09:57 | Emergency (ER) | payer MEDICAID ==
--- OUTSIDE RECORDS SUMMARY | 2022-07-27 10:12 | EXTERNAL MEDICAL SUMMARY RPT | Continuity of Care Document ---
:1985 Author Organization [facility] Address [address] [place] [address] Phone Allergies No information. Encounters No information. [...] unknown) ([phone]) 04/23/22 (unknown) (no (unknown) (unknown) [place], [place] (units ( unknown) date) [id number] unknown) (unknown) (no (unknown) (unknown) Aspartate Amino [...] ( unknown) date) (Auto) 4800 /uL unknown) ([phone]) 04/19/22 (unknown) (no (unknown) (unknown) Neutrophils (%) [...] wn) date) unknown) (unknown) (no (unknown) (unknown) [id number] (units (unkno wn) date) unknown) (unknown) (no [...] (unknown) (unknown) : 1985 (units (unknown) date) Acct:[id number] unknown) (unknown) (no (unknown) (unknown) Dept at [...] Patient: (units (unkno wn) date) Trey Duenas Maggy unknown) MR#: [id number] (unknown) (no (unknown) (unknown) [...] effort is unknown) made to edit content, channel lip wetter errors (unknown) (no (unknown) (unknown) 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 ) and Result panel 2 (unknown) (no (unknown) (unknown) (no value) (units (unk nown) date) unknown) (unknown) (no (unknown) (unknown) (units (unkno wn) date) unknown) (unknown) (no (unknown) (unknown) [id number] (units (unkno wn) date) unknown) (unknown) (no [...] own) date) unknown) (unknown) (no (unknown) (unknown) [place], [place] (units ( unknown) date) [id number] unknown) (unknown) (no (unknown) (unknown) Anxiety (units [...] (units (unknown) date) Level 26 mmol/L unknown) (-32) 04/23/22 (unknown) (no (unknown) (unknown) Chief Complaint [...] (no (unknown) (unknown) [facility] (units (unk n) date) Results- Last: unknown) (unknown) (no (unknown) (unknown) Creatinine 0.61 (units (unknown) date) mg/dL (0.52-1.04) unknown) 04/23/22 (unknown) (no (unknown) (unknown) : 1985 (units (unknown) date) Acct:[id number] unknown) (unknown) (no (unknown) (unknown) Dept at [...] ( unknown) date) (Auto) 4800 /uL unknown) ([phone]) 04/19/22 (unknown) (no (unknown) (unknown) Neutrophils (%) [...] effort is unknown) made to edit content, channel lip wetter errors (unknown) (no (unknown) (unknown) 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 ) and Result panel 3 (unknown) (no (unknown) (unknown) (no value) (units (unk nown) date) unknown) (unknown) (no (unknown) (unknown) (1) Right inguinal (units (unknown) date) pain: unknown) (unknown) (no (unknown) (unknown) (units (unkno wn) date) unknown) (unknown) (no (unknown) (unknown) [id number] (units (unkno wn) date) unknown) (unknown) (no [...] own) date) unknown) (unknown) (no (unknown) (unknown) [place], [place] (units ( unknown) date) [id number] unknown) (unknown) (no (unknown) (unknown) Anxiety (units [...] (units (unknown) date) Level 26 mmol/L unknown) (-32) 04/23/22 (unknown) (no (unknown) (unknown) Chief Complaint [...] (unknown) (unknown) : 1985 (units (unknown) date) Acct:[id number] unknown) (unknown) (no (unknown) (unknown) Dept at [...] ( unknown) date) (Auto) 4800 /uL unknown) ([phone]) 04/19/22 (unknown) (no (unknown) (unknown) Neutrophils (%) [...] effort is unknown) made to edit content, channel lip wetter errors (unknown) (no (unknown) (unknown) substance use [...]
--- NOTE | 2022-07-27 10:45 | ED Physician Documentation ---
PD HPI UPPER EXT INJURY - Stated complaint Stated Complaint: R ARM/WRIST PAIN - Chief complaint Chief Complaint: Ext Problem - History obtained from History obtained from: Patient - History of Present Illness Location: Right, Wrist Timing - onset: How many weeks ago (2) Timing - duration: Weeks (2) Timing - details: Abrupt onset, Still present (she had fallen with pain at wrist, with xray and splint done. There had been question of hairline fx at radius. Returned 2 days later for splint uncomfortable and it was changed. 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 : Chronic bladder infection HEENT: None Psych: Depression Musculoskeletal: None Derm: None - Past Surgical History Past Surgical History: Yes /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: Tubal ligation, Hysterectomy HEENT: Tonsil/Adenoidectomy - Present Medications Home Medications: Ambulatory Orders Medication Instructions Recorded Confirmed Ondansetron Odt [Zofran] 4 mg TL Q6H PRN #10 tablet 02/02/22 07/27/22 oxyCODONE [Roxicodone] 5 mg PO DAILY PRN #10 tablet 07/20/22 07/27/22 oxyCODONE [Roxicodone] 5 mg PO Q6H PRN #18 tablet 07/27/22 - Allergies Allergies/Adverse Reactions: Allergies Allergy/AdvReac Type Severity Reaction Status Date / Time morphine Allergy Nausea Verified 07/27/22 10:14 Penicillins Allergy Hives Verified 07/27/22 10:14 acetaminophen [From Percocet] AdvReac Unknown Verified 07/27/22 10:14 hydrocodone [From [place]] AdvReac Unknown Verified 07/27/22 10:14 oxycodone [From Percocet] AdvReac Unknown Verified 07/27/22 10:14 - Social History Does the pt smoke?: No Smoking Status: Never smoker Does the pt drink ETOH?: Yes Does the pt have substance abuse?: No - Immunizations Immunizations are current?: Yes - POLST Patient has POLST: No PD ED PE NORMAL - Vitals Vital signs reviewed: Yes - General General: Alert and oriented X 3, Well developed/nourished - Derm Derm: Normal color, Warm and dry - Extremities Extremities: Other (right wrist with thumb spice/wrist splint in place. I removed it and there was tender soft tissue on radial side forarm but no skin redness nor breakdown.) - Neuro Neuro: Alert and oriented X 3, No motor deficit, No sensory deficit Results - Vitals Vitals: Vital Signs - 24 hr 07/27/22 07/27/22 10:08 11:52 Temperature 36.3 C L Heart Rate 82 73 Respiratory 14 Rate Blood Pressure 149/86 H 147/94 H O2 Saturation 98 Oxygen O2 Source Room air - Rads (name of study) right wrist Radiology: Prelim report reviewed (cortical irregularity distal radius similar to prior. No signs of bone mineralization to suggest fracture at the site. ), See rad report PD MEDICAL DECISION MAKING - ED course Complexity details: reviewed results (re-xray now at about 2 weeks after injury and no signs of healing bone at the site. So c/w was not a fracture, just normal variant. Can change patient to velcro splint for sprain, and allow starting ROM and loosening soft tissue. She asked for day off work ([employer]).), re-evaluated patient (wrist hurting much less with the fiberglass splint off. ), considered differential, d/w patient Departure - Departure Disposition: 01 Home, Self Care Clinical Impression: Wrist pain Qualifiers: Laterality: right Qualified Code(s): M25.531 - Pain in right wrist Right wrist sprain Qualifiers: Encounter type: subsequent encounter Qualified Code(s): S63.501D - Unspecified sprain of right wrist, subsequent encounter Condition: Stable Record reviewed to determine appropriate education?: Yes Instructions: ED Sprain Wrist Follow-Up: Orthopedic Care [Provider Group] Prescriptions: oxyCODONE [Roxicodone] 5 mg PO Q6H PRN #18 tablet PRN Reason: Pain Comments: Your x-ray today looks similar to the prior one with a subtle irregularity at the surface in 1 view of the wrist. However there is no signs of increased density of bone as would occur with a healing fracture. Therefore this appears to be just a normal variation of normal and not indicative of a subtle fracture. Therefore we can change your splinting to just a Velcro type wrist and thumb splint to guard the area but allow you to have it off at times and progress gentle range of motion. Continue with some anti-inflammatories such as ibuprofen or naproxen 2 tablets twice daily for the next 5 or 6 days for the inflammation improvement. To that add pain medicine if needed. I sent your prescription to your preferred pharmacy. Follow-up with the primary care or orthopedics if not improved well over the next week lets say. Forms: Activity restrictions Discharge Date/Time: 07/27/22 11:52
[2022-07-27] MEDS ORDERED: ACETAMINOPHEN 325 MG TABLET PO STA (11:01)
[2022-07-27] MEDS ORDERED: NAPROXEN 250 MG TABLET PO STA (11:01)
--- NOTE | 2022-07-27 11:30 | XRAY Report ---
PROCEDURE: Wrist 3 View RT INDICATIONS: follow up imaging, recent possible fracture TECHNIQUE: 3 views of the wrist were acquired. COMPARISON: 3 views of the wrist dated 07/20/2022, 07/15/2022 FINDINGS: Bones: Subtle cortical irregularity is noted along the anterior aspect of the distal right radial met aphysis visualized only on the lateral view. No other findings to suggest acute fracture or dislocati on. There is no periosteal reaction or other findings to suggest interval healing. Soft tissues: No suspicious soft tissue calcifications. IMPRESSION: Questionable minimally displaced fracture visualized only on the lateral view. Differential considera tions include normal cortical variant. No findings to suggest interval healing. Reviewed by: Kasandra Beckham MD on 07/27/2022 11:29 AM PDT Approved by: Kasandra Beckham MD on 07/27/2022 11:29 AM PDT Station ID: [id number]
[2022-07-27 11:57] VITALS: BP 147/94
== END 2022-07-27 11:52 | disposition home or self-care (01) ==
LOC: ED 09:57
DX: Z46.89 Encounter for fitting and adjustment of other specified devices (principal); S63.501D Unspecified sprain of right wrist, subsequent encounter; W19.XXXD Unspecified fall, subsequent encounter
CPT/HCPCS: 73110; 99282; 99283; A9270

== ENCOUNTER 2022-08-12 13:55 | Outpatient (CLI) | payer OTHER ==
--- NOTE | 2022-08-12 16:26 | MRI Report ---
PROCEDURE: WRIST WO - RT INDICATIONS: RIGHT WRIST FRACTURE TECHNIQUE: Noncontrast coronal proton density fast spin echo and T2 fast spin echo with fat saturation; coronal 3-D gradient echo, axial T1 spin echo and T2 fast spin echo with fat saturation, sagittal T1 spin ech o through the wrist. COMPARISON: None. FINDINGS: Image quality: Excellent. There is a nondisplaced distal radial fracture present with moderate marrow edema involving the dista l radius. Associated with this is a small effusion in the distal radioulnar joint. Marrow signal in the remaining bones appears within normal limits. There is some edematous changes in the subcutaneous tissues and musculature surrounding the distal ra dius and consistent with acute inflammation. The triangular fibrocartilage appears intact. The scaphoid appears within normal limits. Remainder of the visualized ligaments and tendons involving the wrist appear intact. I see no signifi cant degenerative change is present. No loculated fluid collections or soft tissue masses are seen. IMPRESSION: 1. Imaging findings are consistent with a nondisplaced distal radius fracture with moderate associate d marrow edema in the distal radius and moderate edematous change in the soft tissues and musculature surrounding the distal radius consistent with acute inflammation. 2. Small associated effusion in the distal radioulnar joint. Reviewed by: Rubio Moon MD on 08/12/2022 4:25 PM PST Approved by: Rubio Moon MD on 08/12/2022 4:25 PM PST Station ID: [id number]
== END 2022-08-12 13:56 | disposition home or self-care (01) ==
LOC: DI 13:55
PROVIDERS: ATTEND Orthopaedic Surgery
DX: S52.501A Unspecified fracture of the lower end of right radius, initial encounter for closed fracture (principal); M25.431 Effusion, right wrist

== ENCOUNTER 2022-09-16 14:45 | Outpatient (CLI) | payer OTHER, MEDICAID ==
--- NOTE | 2022-09-16 20:18 | XRAY Report ---
PROCEDURE: Wrist 3 View RT INDICATIONS: RIGHT WRIST FRACTURE TECHNIQUE: 3 views of the wrist were acquired. COMPARISON: MRI of wrist dated 08/12/2022 right wrist radiograph dated 07/27/2022, 07/20/2022 FINDINGS: Bones: There is interval healing at distal radial shaft fracture site with increased sclerosis. No ne w fracture or dislocation. Wrist alignment is anatomic. No suspicious bony lesions. Scaphoid view: Scaphoid is grossly intact. Soft tissues: No suspicious soft tissue calcifications. IMPRESSION: Interval healing at distal radial fracture site. No new fracture or dislocation. Anatomic wrist align ment. Reviewed by: Hiro Patel MD on 09/16/2022 8:16 PM PST Approved by: Hiro Patel MD on 09/16/2022 8:16 PM PST Station ID: [id number]
== END 2022-09-16 14:46 | disposition home or self-care (01) ==
LOC: DI.WOS 14:45
PROVIDERS: ATTEND Orthopaedic Surgery
DX: S52.531D Colles' fracture of right radius, subsequent encounter for closed fracture with routine healing (principal)

== ENCOUNTER 2024-04-09 15:00 | Outpatient (CLI) | payer OTHER, MEDICAID ==
--- NOTE | 2024-04-09 16:34 | XRAY Report ---
PROCEDURE: Ankle 3+V LT INDICATIONS: SPRAIN OF UNSPECIFIED LIGAMENT OF LEFT ANKLE TECHNIQUE: 3 views of the ankle were acquired. COMPARISON: None. FINDINGS: Bones: No acute displaced fracture. No dislocation. Soft tissues: No suspicious calcifications. Possible soft tissue swelling is present IMPRESSION: No acute radiographic osseous abnormality. If there is high concern for further derangement, consider MRI evaluation. Reviewed by: Rosales Powell MD on 04/09/2024 4:32 PM PDT Approved by: Rosales Powell MD on 04/09/2024 4:32 PM PDT Station ID: [id number]
== END 2024-04-09 15:30 | disposition home or self-care (01) ==
LOC: DI.N 15:00
PROVIDERS: ATTEND Physician Assistant Medical
DX: S93.402A Sprain of unspecified ligament of left ankle, initial encounter (principal)

== ENCOUNTER 2024-04-17 15:24 | Outpatient (CLI) | payer OTHER, MEDICAID ==
--- NOTE | 2024-04-17 17:39 | XRAY Report ---
PROCEDURE: Ankle 3+V LT INDICATIONS: LEFT ANKLE SPRAIN TECHNIQUE: 3 views of the ankle were acquired. COMPARISON: None. FINDINGS: Bones: No fractures or dislocations. Ankle mortise is normally aligned. No suspicious bony lesions . Soft tissues: No tibiotalar joint effusion. Achilles tendon appears normal. Lateral periarticular soft tissue swelling. IMPRESSION: Lateral soft tissue swelling without underlying fracture. Reviewed by: Yoly Olivo MD on 04/17/2024 5:38 PM PDT Approved by: Yoly Olivo MD on 04/17/2024 5:38 PM PDT Station ID: [id number]
== END 2024-04-17 15:25 | disposition home or self-care (01) ==
LOC: DI 15:24
PROVIDERS: ATTEND Physician Assistant Surgical
DX: S93.402A Sprain of unspecified ligament of left ankle, initial encounter (principal)

== ENCOUNTER 2024-05-24 15:01 | Outpatient (CLI) | payer OTHER, MEDICAID ==
--- NOTE | 2024-05-24 17:43 | XRAY Report ---
PROCEDURE: Ankle 3+V LT INDICATIONS: NONDISPLACED FX OF LATERAL MALLEOLUS L FIBULA TECHNIQUE: 2 views of the ankle were acquired. COMPARISON: X-ray ankle 04/17/2024 FINDINGS: Bones: Slight appearance of developing sclerotic line at the distal fibula.. Ankle mortise is cristian lly aligned. No suspicious bony lesions. Soft tissues: No tibiotalar joint effusion. Achilles tendon appears normal. IMPRESSION: Developing sclerotic line at the distal fibula most suggestive of healing of previously radiographica lly occult fracture. Reviewed by: Pinky cD MD on 05/24/2024 5:42 PM PDT Approved by: Pinky Dc MD on 05/24/2024 5:42 PM PDT Station ID: [id number]
== END 2024-05-24 15:02 | disposition home or self-care (01) ==
LOC: DI 15:01
PROVIDERS: ATTEND Physician Assistant Surgical
DX: S82.65XD Nondisplaced fracture of lateral malleolus of left fibula, subsequent encounter for closed fracture with routine healing (principal)